=== PATIENT | female | born 1960 | race African-American/Black ===

== ENCOUNTER 2020-04-13 07:19 | Outpatient (REF) | payer OTHER, SELFPAY ==
--- NOTE | 2020-04-13 07:24 | MM_ITS ---
EXAMINATION: MM SCREENING DIGITAL BREAST TOMOSYNTHESIS, BILATERAL CLINICAL INFORMATION: Screening. Asymptomatic. The lifetime risk of breast cancer based on the Tyrer-Cuzick Model is 6%. COMPARISON: Mammography: 04/09/2019, 04/03/2018, 03/08/2017, 02/23/2016 TECHNIQUE: Digital breast tomosynthesis is performed in both the craniocaudal and mediolateral oblique views along with computer-aided detection (CAD). Synthesized 2D images are generated from the tomosynthesis. Additional right MLO view is provided. FINDINGS: There are scattered areas of fibroglandular density (ACR BI-RADS breast composition Category b). Parenchymal pattern is similar to prior studies. Again, there is intramammary node mid upper outer right breast and stable chronic nodule asymmetry anterior 9:00 right breast approximately 1.1 cm in size. Sternalis muscle partly visualized posterior medially right CC view similar to prior exams 2018 and 2015. There is no developing density or interval mass or architectural abnormality. No abnormal calcifications. No significant changes. MM/MM tomosynthesis screening BI IMPRESSION: No significant changes from prior studies. ASSESSMENT: BI-RADS 2: Benign RECOMMENDATION: Routine annual mammography screening. This patient's information was entered into a reminder system with a target due date for their next mammogram.
== END 2020-04-13 07:20 | disposition home or self-care (01) ==
LOC: HO.MAMMO 07:19
PROVIDERS: PCP Internal Medicine; Visit Provider Internal Medicine
DX: Z12.31 Encounter for screening mammogram for malignant neoplasm of breast (principal)
CPT/HCPCS: 77063; 77067

== ENCOUNTER 2020-08-07 08:17 | Outpatient (REF) | payer OTHER, SELFPAY ==
[2020-08-07 10:10] LABS: Alanine Aminotransferase 19 U/L (0-31); Albumin Level 4.2 g/dL (3.5-5.0); Alkaline Phosphatase 79 U/L (39-117); Anion Gap 14 (12-20); Aspartate Amino Transferase 19 U/L (5-31); Bilirubin Total 0.6 mg/dL (0.0-1.0); Blood Urea Nitrogen 8 mg/dL (9-16); Calcium 9.4 mg/dL (8.4-10.2); Carbon Dioxide 26 mmol/L (22-29); Chloride 107 mmol/L (96-108); Cholesterol 278 mg/dL; Estimated Glomerular Filt Rate > 60; Glucose Random 97 mg/dL (60-115); HDL Cholesterol 71 mg/dL; LDL Cholesterol Calculated 180 mg/dl; Potassium 4.6 mmol/L (3.3-5.1); Sodium 142 mmol/L (135-145); Total Protein 6.8 g/dL (6.5-8.0); Triglycerides 138 mg/dL
== END 2020-08-07 08:18 | disposition home or self-care (01) ==
LOC: HO.LAB 08:17
PROVIDERS: PCP Internal Medicine; Visit Provider Internal Medicine
DX: E78.00 Pure hypercholesterolemia, unspecified (principal)
CPT/HCPCS: 36415; 80053; 80061

== ENCOUNTER → 2020-09-27 08:11 | Outpatient (BNVA) | payer OTHER, SELFPAY | PROVIDERS: Referring Provider Internal Medicine; Visit Provider Physician Assistant ==

== ENCOUNTER 2020-11-05 08:47 | Day surgery (SDC) | payer OTHER, SELFPAY ==
--- NOTE | 2020-11-04 10:34 | HO.ANESPROP2 ---
Documented by User: Soila Wang 11/04/20 10:40 HPI - Anesthesia Eval Consult details Narrative: 60yo for Colonoscopy PMFSH Active Problems Active Problems: All Active Problems (Updated 09/27/20 @ 08:40 by Jo Galaviz PA-C) History of colon polyps (Acute) Tubular adenoma of colon (Acute) Overweight (BMI 25.0-29.9) (Acute) Vitamin D deficiency (Acute) Anxiety and depression (Acute) Hypercholesterolemia (Acute) Past Medical History Medical History (Updated 09/27/20 @ 08:40 by Jo Galaviz PA-C) Alcohol abuse Anxiety and depression Cervical dysplasia History of uterine fibroid Hypercholesterolemia Overweight (BMI 25.0-29.9) Tubular adenoma of colon Vitamin D deficiency Family History Family History Father Hypertension Mother Hypertension Stroke CVD (cardiovascular disease) Sister Stroke Brother Substance abuse Bipolar 1 disorder Surgical History Surgical History History of tubal ligation Social History Social History Household Members: Spouse Alcohol intake: current Alcohol intake frequency: a few times a month Alcohol type: beer Patient Tobacco Use Status: Current everyday Tobacco user Cigarettes Per Day: 3 Use of substances other than those prescribed or required for medical reasons: No Are you DNR?: No Advance Directives: No Advance Directives Information Provided: Yes 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 Allergies Allergy/AdvReac Type Severity Reaction Status Date / Time pravastatin Allergy Unknown Unknown Verified 02/20/20 09:21 Home Medications Medication Instructions Recorded Confirmed Last Taken Type cholecalciferol (vitamin D3) 25 25 mcg PO DAILY 02/20/20 11/01/20 Unknown History mcg (1,000 unit) capsule Exam Exam Date and Time: November 04, 2020 1034 Pertinent Lab Results Pertinent Lab Results: Laboratory Tests 01/09/20 08/07/20 07:45 08:42 WBC 10.2 Hgb 14.4 Hct 43.6 Plt Count 242 Sodium 142 Potassium 4.6 Chloride 107 Carbon Dioxide 26 BUN 8 L Creatinine 0.67 Assessment and Plan Assessment Anesthesia Assessment: Chart Reviewed Documented by User: Rosmery Rutherford 11/05/20 09:12 [facility] Past Medical History Medical History (Updated 09/27/20 @ 08:40 by Jo Galaviz PA-C) Alcohol abuse Anxiety and depression Cervical dysplasia History of uterine fibroid Hypercholesterolemia Overweight (BMI 25.0-29.9) Tubular adenoma of colon Vitamin D deficiency Family History Family History Father Hypertension Mother Hypertension Stroke CVD (cardiovascular disease) Sister Stroke Brother Substance abuse Bipolar 1 disorder Surgical History Surgical History History of tubal ligation Social History Social History Household Members: Spouse Alcohol intake: current Alcohol intake frequency: a few times a month Alcohol type: beer Patient Tobacco Use Status: Current everyday Tobacco user Cigarettes Per Day: 3 Use of substances other than those prescribed or required for medical reasons: No Are you DNR?: No Advance Directives: No Advance Directives Information Provided: Yes 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 Allergies Allergy/AdvReac Type Severity Reaction Status Date / Time pravastatin Allergy Unknown Unknown Verified 02/20/20 09:21 Home Medications Medication Instructions Recorded Confirmed Last Taken Type cholecalciferol (vitamin D3) 25 25 mcg PO DAILY 02/20/20 11/01/20 Unknown History mcg (1,000 unit) capsule Exam Airway Mallampati Class: II TM Dist: >3cm Neck ROM: Full Loose/Missing/Broken Teeth: No Heart: RRR Lungs: CTA Assessment and Plan Assessment Anesthesia Assessment: Anesthesia Plan Discussed and Chart Reviewed Final Anesthetic Review NPO: Yes ASA Class: II Final Preanesthetic Review: Meds/Allgs Chart Reviewed, Consent Obtained/Reviewed and Anes Risks/Benef Reviewed Patient Risk: Low Procedure Risk: Low Anesthetic Plan Anesthetic Plan: MAC:
--- NOTE | 2020-11-05 09:02 | MHC.SHP ---
Documented by User: Cassandra Das MD 11/05/20 09:25 Pre-Procedural Eval Section A Date of Service: 11/05/20 The patient is an INPATIENT: No The History & Physical has been completed within 30 days and I have reviewed it.: No Section B Chief Complaint: Hx of Colon Polyps Details of Present Illness: Colon cancer screening, history of colon polyps Relevant Family History (Specify if Yes): No Relevant Social History: Tobacco Use Present Medications: see Short Stay Collaborative assessment Medical History: Significant History (Alcohol abuse Anxiety and depression Cervical dysplasia History of uterine fibroid Hypercholesterolemia Overweight (BMI 25.0-29.9) Tubular adenoma of colon Vitamin D deficiency) History of Previous Operations: Relevant previous surgery/procedure and date(s) (History of tubal ligation) Allergies: Allergies Allergy/AdvReac Type Severity Reaction Status Date / Time pravastatin Allergy Unknown Unknown Verified 02/20/20 09:21 Review of Systems Sugical H&P ROS: Negative: Constitution, Cardiovascular, Respiratory and Gastrointestinal Exam Surgical H&P Exam: Normal: Heart, Normal: Lungs, Normal: Extremities and Normal: Abdomen Plan Diagnosis/Plan: Unchanged I have reviewed the history and physical and performed a pertinent physical examination on my patient. No changes have occurred unless specified. Documented by User: Rosmery Rutherford 11/05/20 09:05 Pre-Procedural Eval Section A Date of Service: 11/05/20 Section B Chief Complaint: Hx of Colon Polyps
[2020-11-05 09:05] VITALS: BP 144/69; PULSE 63; RESP 16; TEMP 36.4; O2SAT 99; BMI 28.1
[2020-11-05] MEDS: Lactated Ringers 1,000 ML 100 ML IVCONT (09:15)
[2020-11-05 10:11] VITALS: BP 107/67; PULSE 62; RESP 18; TEMP 36.2; O2SAT 100
[2020-11-05 10:26] VITALS: BP 137/67; PULSE 60; RESP 16; O2SAT 98
--- NOTE | 2020-11-05 17:30 | W.PM.OPN ---
Operative Note Operative Note Date of Service: 11/05/20 Narrative: Pre-op diagnosis: colon cancer screening, hx of colon polyps Post-op diagnosis: other (Colon polyp, diverticulosis, hemorrhoids) Procedure: COLONOSCOPY TILL CECUM WITH BIOPSES, SNARE POLYPECTOMY, HEMOCLIP PLACEMENT AND SUBMUCOSAL INJECTION Consent: Indications for the procedure and potential complications of bleeding, perforation, reaction to medications and missed diagnosis were discussed with the patient and informed consent was obtained. Instrument: Olympus PCF H 190 L variable stiffness pediatric colonoscope Monitoring: Vital signs and clinical assessment, intermittent blood pressure monitoring, continuous EKG monitoring, Pulse oximetry and Carbon Dioxide monitoring were done throughout the procedure. Colon withdrawl time was 24 minutes. Procedure: The patient was placed in the left lateral decubitis position and pre-procedure medications were administered. After a digital rectal examination of the ano-rectum, the video colonoscope was inserted into the rectum and advanced through the colon to the cecum. The colonoscope was slowly withdrawn in a retrograde panoramic fashion and the colon mucosa was carefully examined including a retroflexed view of the rectum. Findings and interventions are described below. Procedure Difficulty: Colon was long and tortuous and there was some loop formation - no maneuvers were required Findings: Terminal Ileum: Not evaluated Cecum: A 2-3 mm diminutive appearing polyp removed with a cold bx. Ascending Colon: A 1.5 to 2 cms sessile polyp in a diverticulum in proximal AC close to the lower lip of ICV (recurrent polyp since polyp was removed from the same location during previous two colonoscopes) - polyp was removed with a hot snare and polypectomy site was closed with a hemoclip and marked by agus ink. Moderate diverticulosis Transverse Colon: Moderate diverticulosis Descending Colon: Moderate diverticulosis Sigmoid Colon: Moderate diverticulosis Rectum: Normal Ano-rectum: Moderate internal hemorrhoids Colon preparation: Excellent Impression and Post Procedure Diagnosis: Colonoscopy Findings: One small and one large polyps removed Moderate diverticulosis seen in the entire colon Moderate hemorrhoids on retroflexed exam. Plan: Await pathology results Patient has an appointment on 12/20/20 in the GI Clinic with YADY Diehl . Repeat Colonoscopy interval based on path results - in 1 years to check polypectomy site in the AC. Above findings were reviewed with the patient and colon polyps and diverticulosis handouts were given in the discharge area Surgeon: Cassandra Das MD Anesthesia: MAC (Dr Rutherford) Was an Chemical Etching Processor used for this Procedure?: No Chemical Etching Processor: Alec Lee Estimated blood loss (mL): 0 Pathology: other (A- CECAL POLYP B- ASCENDING COLON POLYP) Condition: stable Disposition: PACU
== END 2020-11-05 10:50 | disposition home or self-care (01) ==
PROVIDERS: PCP Internal Medicine; Visit Provider Internal Medicine Gastroenterology
PROC: 0DJD8ZZ Inspection of Lower Intestinal Tract, Via Natural or Artificial Opening Endoscopic (ICD-10-PCS; CPT 45378; principal; 2020-11-05 10:00)
DX: Z12.11 Encounter for screening for malignant neoplasm of colon (principal); Z86.010 Personal history of colon polyps; D12.2 Benign neoplasm of ascending colon; K63.5 Polyp of colon; K57.30 Diverticulosis of large intestine without perforation or abscess without bleeding; K64.8 Other hemorrhoids; E55.9 Vitamin D deficiency, unspecified; E78.00 Pure hypercholesterolemia, unspecified; F10.10 Alcohol abuse, uncomplicated; F32.9 Major depressive disorder, single episode, unspecified; F17.210 Nicotine dependence, cigarettes, uncomplicated; Z79.899 Other long term (current) drug therapy
CPT/HCPCS: 45385; 45380; 45381; 88305

== ENCOUNTER 2020-11-29 15:05 | Outpatient (REF) | payer OTHER, SELFPAY | END 2020-11-29 15:06 | disposition home or self-care (01) | LOC: HO.LAB 15:05 | PROVIDERS: PCP Internal Medicine; Visit Provider Internal Medicine | DX: Z20.822 Contact with and (suspected) exposure to COVID-19 (principal) | CPT/HCPCS: C9803; U0003; U0005 ==

== ENCOUNTER 2020-11-29 15:18 | Emergency (ER) | payer OTHER, SELFPAY ==
--- NOTE | ~2020-11-29 | XR_ITS ---
EXAMINATION: XR CHEST CLINICAL INFORMATION: Chest pain. COMPARISON: None TECHNIQUE: Frontal view of the chest was obtained. FINDINGS: No significant abnormality is noted involving the heart, lungs, mediastinum, bony thorax or soft tissues. XR/XR chest 1V IMPRESSION: Unremarkable chest examination.
[2020-11-29 15:40] VITALS: BP 173/77; PULSE 69; RESP 18; TEMP 36.9; O2SAT 99; BMI 27.7
--- NOTE | 2020-11-29 15:40 | ECG_ITS ---
Test Reason : HYPERTENSION CP Blood Pressure : / mmHG Vent. Rate : 061 BPM Atrial Rate : 061 BPM P-R Int : 162 ms QRS Dur : 078 ms QT Int : 418 ms P-R-T Axes : 011 013 036 degrees QTc Int : 420 ms Normal sinus rhythm Normal ECG No previous ECGs available Referred By: Kavon Macias Electronically Signed By:FIONA WILLIS MD
--- NOTE | 2020-11-29 15:42 | ED.GENADULT ---
HPI - General Adult General Chief complaint: General Medical Stated complaint: HBP Time Seen by Provider: 11/29/20 15:40 Related Data Home Medications Medication Instructions Recorded Confirmed cholecalciferol (vitamin D3) 25 25 mcg PO DAILY 02/20/20 11/01/20 mcg (1,000 unit) capsule Previous Rx's Medication Instructions Recorded simvastatin 20 mg tablet 20 mg PO QPM #90 tab 08/03/20 lisinopril 10 mg tablet 10 mg PO DAILY #30 tab 11/29/20 Allergies Allergy/AdvReac Type Severity Reaction Status Date / Time No Known Allergies Allergy Verified 11/29/20 15:40 [facility] Past Medical History Medical History (Updated 11/30/20 @ 00:01 by Khurram Alcala) Alcohol abuse Anxiety and depression Cervical dysplasia History of uterine fibroid Hypercholesterolemia Overweight (BMI 25.0-29.9) Tubular adenoma of colon Vitamin D deficiency Surgical History History of tubal ligation Family History Family History Father Hypertension Mother Hypertension Stroke CVD (cardiovascular disease) Sister Stroke Brother Substance abuse Bipolar 1 disorder Social History Social History Household Members: Spouse Alcohol intake: never Patient Tobacco Use Status: Current everyday Tobacco user Cigarettes Per Day: 3 Use of substances other than those prescribed or required for medical reasons: No Advance Directives: No Advance Directives Information Provided: Yes Patient : No 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 negative for any neurodefcits. EKG and labs ordered. This is a rapid medical screening. Medical Decision Making Lab Data Result diagrams: 11/29/20 16:57 11/29/20 16:57 Labs: Lab Results 11/29/20 11/29/20 11/29/20 Range/Units 16:57 16:57 16:57 WBC 9.7 (4.8-10.8) X10*3/uL RBC 4.51 (4.20-5.50) X10*6/uL Hgb 14.9 (12.0-16.0) g/dl Hct 43.2 (37-47) % MCV 95.8 (80-98) fL MCH 33.0 (27.0-33.0) pg MCHC 34.5 (31.0-35.0) g/dl RDW 12.3 (11.0-16.0) % Plt Count 260 (160-400) X10*3/uL MPV 10.2 (9.4-12.3) fL Immature Gran % (Auto) 0.3 (0.0-0.4) % Neut % (Auto) 55.4 (45-73) % Lymph % (Auto) 33.8 (20-40) % [place] % (Auto) 7.8 (2-11) % Eos % (Auto) 2.3 (0-4) % Baso % (Auto) 0.4 (0-2) % Lymph # (Auto) 3.3 (1.2-4.9) X10*3/uL [place] # (Auto) 0.8 (0.1-1.2) X10*3/uL Eos # (Auto) 0.2 (0.0-0.4) X10*3/uL Baso # (Auto) 0.0 (0.0-0.2) X10*3/uL Abs Immat Gran (auto) 0.03 (0.00-0.03) X10*3/uL Absolute Neuts (auto) 5.4 (2.0-8.3) X10*3/uL Absolute Nucleated RBC 0.000 (0.0-0.012) X10*3/uL Nucleated RBC % (auto) 0.0 (0.0-0.2) /100WBC PT 11.6 (9.9-13.0) SEC INR 1.0 (0.9-1.1) APTT 37.9 (24.1-38.0) SEC Sodium 143 (135-145) mmol/L Potassium 4.3 (3.3-5.1) mmol/L Chloride 111 H (96-108) mmol/L Carbon Dioxide 23 (22-29) mmol/L Anion Gap 13 (12-20) BUN 12 (9-16) mg/dL Creatinine 0.72 (0.5-1.4) mg/dL Estim Creat Clear Calc 70.5 Estimated GFR > 60 Random Glucose 98 (60-115) mg/dL Calcium 9.6 (8.4-10.2) mg/dL Total Bilirubin 0.4 (0.0-1.0) mg/dL AST 20 (5-31) U/L ALT 17 (0-31) U/L Alkaline Phosphatase 88 (39-117) U/L Troponin I High Sens (<3.5-17.0) ng/L B-Natriuretic Peptide (<100) pg/mL Total Protein 7.3 (6.5-8.0) g/dL Albumin 4.4 (3.5-5.0) g/dL 11/29/20 Range/Units 16:57 WBC (4.8-10.8) X10*3/uL RBC (4.20-5.50) X10*6/uL Hgb (12.0-16.0) g/dl Hct (37-47) % MCV (80-98) fL MCH (27.0-33.0) pg MCHC (31.0-35.0) g/dl RDW (11.0-16.0) % Plt Count (160-400) X10*3/uL MPV (9.4-12.3) fL Immature Gran % (Auto) (0.0-0.4) % Neut % (Auto) (45-73) % Lymph % (Auto) (20-40) % [place] % (Auto) (2-11) % Eos % (Auto) (0-4) % Baso % (Auto) (0-2) % Lymph # (Auto) (1.2-4.9) X10*3/uL [place] # (Auto) (0.1-1.2) X10*3/uL Eos # (Auto) (0.0-0.4) X10*3/uL Baso # (Auto) (0.0-0.2) X10*3/uL Abs Immat Gran (auto) (0.00-0.03) X10*3/uL Absolute Neuts (auto) (2.0-8.3) X10*3/uL Absolute Nucleated RBC (0.0-0.012) X10*3/uL Nucleated RBC % (auto) (0.0-0.2) /100WBC PT (9.9-13.0) SEC INR (0.9-1.1) APTT (24.1-38.0) SEC Sodium (135-145) mmol/L Potassium (3.3-5.1) mmol/L Chloride (96-108) mmol/L Carbon Dioxide (22-29) mmol/L Anion Gap (12-20) BUN (9-16) mg/dL Creatinine (0.5-1.4) mg/dL Estim Creat Clear Calc Estimated GFR Random Glucose (60-115) mg/dL Calcium (8.4-10.2) mg/dL Total Bilirubin (0.0-1.0) mg/dL AST (5-31) U/L ALT (0-31) U/L Alkaline Phosphatase (39-117) U/L Troponin I High Sens < 3.5 (<3.5-17.0) ng/L B-Natriuretic Peptide 35 (<100) pg/mL Total Protein (6.5-8.0) g/dL Albumin (3.5-5.0) g/dL Discharge Plan Discharge Clinical Impression: Hypertension Patient Disposition: Home, Self-Care Instructions: Hypertension (ED) Additional Instructions: Decrease salt intake Start taking blood pressure medication for borderline hypertension and follow-up with PCP blood pressure should be less than 140/90 Check blood pressure daily Prescriptions: New lisinopril 10 mg tablet 10 mg PO DAILY Qty: 30 RF: 0 No Action simvastatin 20 mg tablet 20 mg PO QPM Qty: 90 RF: 1 cholecalciferol (vitamin D3) 25 mcg (1,000 unit) capsule 25 mcg PO DAILY RF: 0 Interventions: ED Discharge Assessment Last Done: 11/29/20 22:43 Discharge Date/Time: 11/29/20 22:45
[2020-11-29 16:00] VITALS: BP 195/85; PULSE 76; RESP 18; O2SAT 99
[2020-11-29 17:04] LABS: MANUAL DIFF FLAG NO
[2020-11-29 17:07] LABS: Basophils Percent Auto 0.4 % (0-2); Eosinophils Absolute Auto 0.2 X10*3/uL (0.0-0.4); Eosinophils Percent Auto 2.3 % (0-4); Hematocrit 43.2 % (37-47); Hemoglobin 14.9 g/dl (12.0-16.0); Imm Gran Abs Auto 0.03 X10*3/uL (0.00-0.03); Imm Gran Pct Auto 0.3 % (0.0-0.4); Lymphocytes Absolute Auto 3.3 X10*3/uL (1.2-4.9); Lymphocytes Percent Auto 33.8 % (20-40); Mean Corpuscular HGB Conc 34.5 g/dl (31.0-35.0); Mean Corpuscular Volume 95.8 fL (80-98); Mean Platelet Volume 10.2 fL (9.4-12.3); Monocytes Absolute Auto 0.8 X10*3/uL (0.1-1.2); Monocytes Percent Auto 7.8 % (2-11); Neutrophils Absolute Auto 5.4 X10*3/uL (2.0-8.3); Neutrophils Percent Auto 55.4 % (45-73); Platelet Count 260 X10*3/uL (160-400); Red Blood Count 4.51 X10*6/uL (4.20-5.50); Red Cell Distribution Width 12.3 % (11.0-16.0); White Blood Count 9.7 X10*3/uL (4.8-10.8)
[2020-11-29 17:17] LABS: Prothrombin Time 11.6 SEC (9.9-13.0)
[2020-11-29 17:20] LABS: Partial Thromboplastin Time 37.9 SEC (24.1-38.0)
[2020-11-29 17:44] LABS: Alanine Aminotransferase 17 U/L (0-31); Albumin Level 4.4 g/dL (3.5-5.0); Alkaline Phosphatase 88 U/L (39-117); Anion Gap 13 (12-20); Aspartate Amino Transferase 20 U/L (5-31); Bilirubin Total 0.4 mg/dL (0.0-1.0); Blood Urea Nitrogen 12 mg/dL (9-16); Calcium 9.6 mg/dL (8.4-10.2); Carbon Dioxide 23 mmol/L (22-29); Chloride 111 mmol/L (96-108); Creatinine Clr Calc Pharmacy 70.5; Estimated Glomerular Filt Rate > 60; Glucose Random 98 mg/dL (60-115); Potassium 4.3 mmol/L (3.3-5.1); Sodium 143 mmol/L (135-145); Total Protein 7.3 g/dL (6.5-8.0)
[2020-11-29 17:50] LABS: B Type Natriuretic Peptide 35 pg/mL (<100); Troponin-I High Sensitivity < 3.5 ng/L (<3.5-17.0)
--- NOTE | 2020-11-29 21:57 | ED.GENADULT ---
HPI - General Adult General Chief complaint: General Medical Stated complaint: HBP Time Seen by Provider: 11/29/20 15:40 Source: patient Mode of arrival: ambulatory Limitations: no limitations History of Present Illness HPI narrative: Patient with history of anxiety and depression complaining of chest pain, dizziness, high blood pressure and headache for last 4 days blood pressure on arrival was 195/85 pulse rate 69 recheck blood pressure now is 177/89 patient was seen at urgent care 4 days ago. Patient does have very strong family history of hypertension most of the family members have high blood pressure patient saw her PCP 6 months ago her blood pressure was normal at that time patient also complaining of chest pain which is chronic going on for last few days localized in the mid sternum without radiation no diaphoresis no shortness of breath also feeling dizzy nonspecific Related Data Home Medications Medication Instructions Recorded Confirmed cholecalciferol (vitamin D3) 25 25 mcg PO DAILY 02/20/20 11/01/20 mcg (1,000 unit) capsule Previous Rx's Medication Instructions Recorded simvastatin 20 mg tablet 20 mg PO QPM #90 tab 08/03/20 lisinopril 10 mg tablet 10 mg PO DAILY #30 tab 11/29/20 Allergies Allergy/AdvReac Type Severity Reaction Status Date / Time No Known Allergies Allergy Verified 11/29/20 15:40 Review of Systems Review of Systems: Constitutional : No Weight loss, No Fever, No Chills ENT/Mouth : No sore throat, No Rhinorrhea Eyes: No Eye Pain, No Swelling Cardiovascular : +Chest Pain, no palpitations Respiratory : No Cough, No Sputum, no shortness of breath Gastrointestinal : no Nausea, No Vomiting, No Diarrhea, No abdominal Pain, no black stools Genitourinary : No Dysuria, No Urinary Frequency Musculoskeletal : No joint pain, No Myalgias, No Joint Swelling Skin : No Skin Lesions, No rash Neuro : No Weakness, No Numbness, + Dizziness, No Headache Psych : + Anxiety/Panic, No Depression Heme/Lymph: No Bruising, No Lymphadenopathy Endocrine : No Polyuria, No Polydipsia All other systems reviewed and are negative [facility] Past Medical History Medical History (Updated 11/29/20 @ 22:15 by Garth Westbrook MD) Alcohol abuse Anxiety and depression Cervical dysplasia History of uterine fibroid Hypercholesterolemia Overweight (BMI 25.0-29.9) Tubular adenoma of colon Vitamin D deficiency Surgical History History of tubal ligation Family History Family History Father Hypertension Mother Hypertension Stroke CVD (cardiovascular disease) Sister Stroke Brother Substance abuse Bipolar 1 disorder Social History Social History Household Members: Spouse Alcohol intake: current Alcohol intake frequency: a few times a month Alcohol type: beer Patient Tobacco Use Status: Current everyday Tobacco user Cigarettes Per Day: 3 Advance Directives: No Advance Directives Information Provided: Yes Patient : No 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 Oriented X3. No acute distress. Eyes: PERRLA, No Nystagmus ENT: Pharynx normal. Oral Mucosa moist Neck: Normal inspection. Neck supple. CVS: Normal heart rate and rhythm. Pulses normal. Respiratory: No respiratory distress. Equal air entry bilateral, no wheezing/rales/rhonchi Abdomen: Soft and nontender. Bowel sounds are present, no mass palpable, no CVA tenderness Skin: Skin warm and dry. Normal skin color. Normal skin turgor. Extremities: No lower extremity edema. No calf tenderness Neuro: Oriented X 3. No motor deficit. No sensory deficit.No cerebellar signs , cranial nerves II-XII intact Medical Decision Making MDM Narrative Medical decision making narrative: Patient with borderline hypertension high normal blood pressure with strong family history of hypertension. Will start patient on lisinopril advised to have salt restriction follow with PCP Lab Data Lab results reviewed: Yes I reviewed the patient's lab results. Result diagrams: 11/29/20 16:57 11/29/20 16:57 Labs: Lab Results 11/29/20 11/29/20 11/29/20 Range/Units 16:57 16:57 16:57 WBC 9.7 (4.8-10.8) X10*3/uL RBC 4.51 (4.20-5.50) X10*6/uL Hgb 14.9 (12.0-16.0) g/dl Hct 43.2 (37-47) % MCV 95.8 (80-98) fL MCH 33.0 (27.0-33.0) pg MCHC 34.5 (31.0-35.0) g/dl RDW 12.3 (11.0-16.0) % Plt Count 260 (160-400) X10*3/uL MPV 10.2 (9.4-12.3) fL Immature Gran % (Auto) 0.3 (0.0-0.4) % Neut % (Auto) 55.4 (45-73) % Lymph % (Auto) 33.8 (20-40) % [place] % (Auto) 7.8 (2-11) % Eos % (Auto) 2.3 (0-4) % Baso % (Auto) 0.4 (0-2) % Lymph # (Auto) 3.3 (1.2-4.9) X10*3/uL [place] # (Auto) 0.8 (0.1-1.2) X10*3/uL Eos # (Auto) 0.2 (0.0-0.4) X10*3/uL Baso # (Auto) 0.0 (0.0-0.2) X10*3/uL Abs Immat Gran (auto) 0.03 (0.00-0.03) X10*3/uL Absolute Neuts (auto) 5.4 (2.0-8.3) X10*3/uL Absolute Nucleated RBC 0.000 (0.0-0.012) X10*3/uL Nucleated RBC % (auto) 0.0 (0.0-0.2) /100WBC PT 11.6 (9.9-13.0) SEC INR 1.0 (0.9-1.1) APTT 37.9 (24.1-38.0) SEC Sodium 143 (135-145) mmol/L Potassium 4.3 (3.3-5.1) mmol/L Chloride 111 H (96-108) mmol/L Carbon Dioxide 23 (22-29) mmol/L Anion Gap 13 (12-20) BUN 12 (9-16) mg/dL Creatinine 0.72 (0.5-1.4) mg/dL Estim Creat Clear Calc 70.5 Estimated GFR > 60 Random Glucose 98 (60-115) mg/dL Calcium 9.6 (8.4-10.2) mg/dL Total Bilirubin 0.4 (0.0-1.0) mg/dL AST 20 (5-31) U/L ALT 17 (0-31) U/L Alkaline Phosphatase 88 (39-117) U/L Troponin I High Sens (<3.5-17.0) ng/L B-Natriuretic Peptide (<100) pg/mL Total Protein 7.3 (6.5-8.0) g/dL Albumin 4.4 (3.5-5.0) g/dL 11/29/20 Range/Units 16:57 WBC (4.8-10.8) X10*3/uL RBC (4.20-5.50) X10*6/uL Hgb (12.0-16.0) g/dl Hct (37-47) % MCV (80-98) fL MCH (27.0-33.0) pg MCHC (31.0-35.0) g/dl RDW (11.0-16.0) % Plt Count (160-400) X10*3/uL MPV (9.4-12.3) fL Immature Gran % (Auto) (0.0-0.4) % Neut % (Auto) (45-73) % Lymph % (Auto) (20-40) % [place] % (Auto) (2-11) % Eos % (Auto) (0-4) % Baso % (Auto) (0-2) % Lymph # (Auto) (1.2-4.9) X10*3/uL [place] # (Auto) (0.1-1.2) X10*3/uL Eos # (Auto) (0.0-0.4) X10*3/uL Baso # (Auto) (0.0-0.2) X10*3/uL Abs Immat Gran (auto) (0.00-0.03) X10*3/uL Absolute Neuts (auto) (2.0-8.3) X10*3/uL Absolute Nucleated RBC (0.0-0.012) X10*3/uL Nucleated RBC % (auto) (0.0-0.2) /100WBC PT (9.9-13.0) SEC INR (0.9-1.1) APTT (24.1-38.0) SEC Sodium (135-145) mmol/L Potassium (3.3-5.1) mmol/L Chloride (96-108) mmol/L Carbon Dioxide (22-29) mmol/L Anion Gap (12-20) BUN (9-16) mg/dL Creatinine (0.5-1.4) mg/dL Estim Creat Clear Calc Estimated GFR Random Glucose (60-115) mg/dL Calcium (8.4-10.2) mg/dL Total Bilirubin (0.0-1.0) mg/dL AST (5-31) U/L ALT (0-31) U/L Alkaline Phosphatase (39-117) U/L Troponin I High Sens < 3.5 (<3.5-17.0) ng/L B-Natriuretic Peptide 35 (<100) pg/mL Total Protein (6.5-8.0) g/dL Albumin (3.5-5.0) g/dL ECG Data Attestation: I personally reviewed and interpreted this ECG as follows: Interpretation: Normal sinus rhythm heart rate 61 beats per minute normal interval no acute ST T wave changes impression normal EKG Discharge Plan Discharge Clinical Impression: Hypertension Qualifiers: Hypertension type: primary hypertension Qualified Code(s): I10 - Essential (primary) hypertension Patient Disposition: Home, Self-Care Instructions: Hypertension (ED) Additional Instructions: Decrease salt intake Start taking blood pressure medication for borderline hypertension and follow-up with PCP blood pressure should be less than 140/90 Check blood pressure daily Prescriptions: New lisinopril 10 mg tablet 10 mg PO DAILY Qty: 30 RF: 0 No Action simvastatin 20 mg tablet 20 mg PO QPM Qty: 90 RF: 1 cholecalciferol (vitamin D3) 25 mcg (1,000 unit) capsule 25 mcg PO DAILY RF: 0
[2020-11-29 22:00] VITALS: BP 177/89; PULSE 64; RESP 15; O2SAT 99
[2020-11-29 22:21] VITALS: BP 177/89; PULSE 64
[2020-11-29] MEDS: lisinopriL 10 MG TABLET PO (22:21)
== END 2020-11-29 22:45 | disposition home or self-care (01) ==
PROVIDERS: Physician Assistant; Emergency Provider Internal Medicine; PCP Internal Medicine
DX: I10 Essential (primary) hypertension (principal); R42 Dizziness and giddiness; R07.9 Chest pain, unspecified; R51.9 Headache, unspecified; F17.210 Nicotine dependence, cigarettes, uncomplicated; Z71.6 Tobacco abuse counseling; Z79.899 Other long term (current) drug therapy
CPT/HCPCS: 36415; 71045; 80053; 83880; 84484; 85025; 85610; 85730; 93005; 99283; 99284

== ENCOUNTER → 2020-12-20 09:19 | Outpatient (BNVA) | payer OTHER, SELFPAY | PROVIDERS: PCP Internal Medicine; Visit Provider Physician Assistant ==

== ENCOUNTER → 2021-01-03 07:48 | Outpatient (REF) | payer OTHER, SELFPAY ==
--- NOTE | 2021-01-03 07:52 | CA_ITS ---
Acquisition Time: 2021-01-03 07:54:02 Total Exercise Time: 00:05:50 Test Indications: Screening for CAD Medications: LISINOPRIL/HCTZ Protocol: TINA Max HR: 112 BPM 69% of Pred: 161 BPM Max BP: 138/080 mmHG Max Work Load: 7.0 METS Exercise stress test with exercise 5 min 50 sec of Tina protocol, with report of 8/10 mid chest discomfort with radiation to left arm, with isolated PAC, with normotensive response to exercise, with EKG that is nondiagnostic for ischemia due to suboptimal heart rate of 69% MPHR, however EKG shows scooping ST segments inferiorly and V4-V6 at baseline Then downsloping ST segments leads I, II, V3-V6 at peak exercise and in recovery with gradual return to bases baseline EKG. In recovery her chest discomfort improved and resolved by 6 min. Test reviewed with Dr. Lloyd. Message sent to Dr Clayton with report and recommendation for pharm nuclear stress test/ card consult. Referred By: Gian Clayton Overread By: DEV ALVARADO
== END ==
LOC: HO.CARD 07:48
PROVIDERS: PCP Internal Medicine; Visit Provider Internal Medicine
DX: R07.9 Chest pain, unspecified (principal)
CPT/HCPCS: 93017

== ENCOUNTER 2021-01-15 07:57 | Outpatient (REF) | payer OTHER, SELFPAY ==
[2021-01-15 08:25] LABS: MANUAL DIFF FLAG NO
[2021-01-15 08:32] LABS: Basophils Percent Auto 0.4 % (0-2); Eosinophils Absolute Auto 0.2 X10*3/uL (0.0-0.4); Eosinophils Percent Auto 2.2 % (0-4); Hematocrit 42.4 % (37-47); Hemoglobin 14.3 g/dl (12.0-16.0); Imm Gran Abs Auto 0.04 X10*3/uL (0.00-0.03); Imm Gran Pct Auto 0.4 % (0.0-0.4); Lymphocytes Absolute Auto 3.1 X10*3/uL (1.2-4.9); Lymphocytes Percent Auto 33.5 % (20-40); Mean Corpuscular HGB Conc 33.7 g/dl (31.0-35.0); Mean Corpuscular Volume 94.9 fL (80-98); Mean Platelet Volume 9.6 fL (9.4-12.3); Monocytes Absolute Auto 0.9 X10*3/uL (0.1-1.2); Monocytes Percent Auto 10.2 % (2-11); Neutrophils Absolute Auto 4.9 X10*3/uL (2.0-8.3); Neutrophils Percent Auto 53.3 % (45-73); Platelet Count 313 X10*3/uL (160-400); Red Blood Count 4.47 X10*6/uL (4.20-5.50); Red Cell Distribution Width 11.5 % (11.0-16.0); White Blood Count 9.2 X10*3/uL (4.8-10.8)
[2021-01-15 09:08] LABS: Alanine Aminotransferase 24 U/L (0-31); Albumin Level 4.4 g/dL (3.5-5.0); Alkaline Phosphatase 81 U/L (39-117); Anion Gap 13 (12-20); Aspartate Amino Transferase 23 U/L (5-31); Bilirubin Total 0.5 mg/dL (0.0-1.0); Blood Urea Nitrogen 12 mg/dL (9-16); Carbon Dioxide 27 mmol/L (22-29); Chloride 106 mmol/L (96-108); Cholesterol 204 mg/dL; Estimated Glomerular Filt Rate > 60; Glucose Random 97 mg/dL (60-115); HDL Cholesterol 72 mg/dL; LDL Cholesterol Calculated 115 mg/dl; Potassium 4.6 mmol/L (3.3-5.1); Sodium 141 mmol/L (135-145); Total Protein 7.2 g/dL (6.5-8.0); Triglycerides 89 mg/dL
[2021-01-15 09:21] LABS: Free T4 (Free Thyroxine) 0.97 ng/dL (0.71-1.85); Vitamin D 25-OH Total 46.7 ng/mL (>30)
== END 2021-01-15 07:58 | disposition home or self-care (01) ==
LOC: HO.LAB 07:57
PROVIDERS: PCP Internal Medicine; Visit Provider Internal Medicine
DX: E55.9 Vitamin D deficiency, unspecified (principal); E78.00 Pure hypercholesterolemia, unspecified
CPT/HCPCS: 36415; 80053; 80061; 82306; 84439; 84443; 85025

== ENCOUNTER 2021-01-31 09:25 | Inpatient (IN) | payer OTHER, SELFPAY ==
[2021-01-31] VITALS (9 sets, daily range): BP systolic 108–160; BP diastolic 59–92; PULSE 50–88; RESP 14–20; TEMP 36–37; O2SAT 98–100; BMI 26.7
--- NOTE | ~2021-01-31 | XR_ITS ---
EXAMINATION: XR CHEST CLINICAL INFORMATION: Chest pain COMPARISON: Previous chest x-ray November 2020 TECHNIQUE: 2 views of the chest were obtained. FINDINGS: No significant abnormality is noted involving the heart, lungs, mediastinum, bony thorax or soft tissues. XR/XR chest 2V IMPRESSION: Unremarkable examination.
--- NOTE | ~2021-01-31 | CT_ITS ---
EXAMINATION: CT HEAD WITHOUT CONTRAST CLINICAL INFORMATION: Headache COMPARISON: 10/02/2017 TECHNIQUE: Contiguous axial imaging was performed from the skull base to vertex without intravenous administration of contrast. This CT examination was performed using dose optimization techniques as appropriate, variously including the following: *Automated exposure control *Adjustment of mA and/or kV according to patient size (this includes techniques or standardized protocols for targeted exams where dose is matched to indication/reason for exam; i.e. extremities or head) *Use of iterative reconstruction technique DLP: 621 mGy-cm FINDINGS: There is no evidence of acute intracranial hemorrhage or territorial infarction. No abnormal mass effect or midline shift is seen. Sebastian to white matter differentiation is well preserved. No extra-axial fluid collections are identified. The ventricles are normal in size. Stable mild bifrontal periventricular white matter low-attenuation change statistically related to chronic microangiopathy. The osseous structures and soft tissues are normal. The mastoid air cells and visualized portions of the paranasal sinuses are well aerated. CT/CT head/brain wo con IMPRESSION: No acute intracranial pathology.
--- NOTE | ~2021-01-31 | CT_ITS ---
EXAMINATION: CT ANGIOGRAM OF THE CHEST WITH AND WITHOUT CONTRAST (CT PULMONARY ANGIOGRAM FOR PE) CLINICAL INFORMATION: Reason for Exam chest pain COMPARISON: Previous chest x-ray from earlier the same day TECHNIQUE: Prior to contrast administration, noncontrast localization images were obtained. Subsequently, multidetector volumetric imaging was performed from the thoracic inlet to below the diaphragms following the administration of 65 mL Omnipaque 350 intravenous contrast. No contrast reaction reported Sagittal, coronal, and MIP oblique sagittal reformatted images were obtained on the CT workstation, uploaded to PACS, and reviewed. This CT examination was performed using dose optimization techniques as appropriate, variously including the following: *Automated exposure control *Adjustment of mA and/or kV according to patient size (this includes techniques or standardized protocols for targeted exams where dose is matched to indication/reason for exam; i.e. extremities or head) *Use of iterative reconstruction technique Total exam dose-length product 304 mGy-cm FINDINGS: QUALITY OF STUDY/CONTRAST BOLUS: Satisfactory. PULMONARY ARTERIES: No central or segmental pulmonary emboli. THORACIC AORTA: No aneurysm or dissection. LUNG: There is a 4 mm calcified right upper lobe nodule near the mediastinum axial image 176 series 8. There is a 4 mm calcified left lower lobe nodule axial image 49 series 7. The lungs are otherwise clear. PLEURA: No pleural effusion or pneumothorax. MEDIASTINUM: Normal heart size. No pericardial effusion. There is a small calcified posterior mediastinal lymph node measuring 5 mm posterior to the esophagus axial image 44 series 6. No enlarged lymph nodes. No evidence of septal bowing or right heart strain. CHEST WALL/AXILLA: No axillary or internal mammary lymphadenopathy. There are collateral vessels in the right chest wall. OSSEOUS STRUCTURES: There is a focal small 5 mm sclerotic lesion in the right at T4 vertebral body. No fracture is seen. UPPER ABDOMEN: Unremarkable. No reflux of contrast into the hepatic veins to suggest elevated right heart pressures. CT/CT angio chest PE protocol IMPRESSION: No evidence of pulmonary embolism. Evidence of old granulomatous disease VTE: negative
--- NOTE | 2021-01-31 10:16 | ECG_ITS ---
Test Reason : GENERAL MEDICINE Blood Pressure : / mmHG Vent. Rate : 058 BPM Atrial Rate : 058 BPM P-R Int : 170 ms QRS Dur : 088 ms QT Int : 428 ms P-R-T Axes : 026 025 043 degrees QTc Int : 420 ms Sinus bradycardia T wave abnormality, consider anterior ischemia Abnormal ECG When compared with ECG of 29-NOV-2020 16:46, T wave inversion now evident in Anterior leads Referred By: Lisa Alvarez Electronically Signed By:NEVAEH MARIE MD
[2021-01-31] MEDS: Cyclobenzaprine HCl 5 MG TABLET PO ×2 (10:26→11:49)
[2021-01-31] MEDS: Ibuprofen 600 MG TABLET PO (10:26)
[2021-01-31 11:17] LABS: MANUAL DIFF FLAG NO
--- NOTE | 2021-01-31 11:29 | ED_ITS ---
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 Of no patient tells me she has these episodes daily which occur at rest. She has been seen several times in the emergency department for same. She saw her primary in December and was started on a blood pressure medication as they thought the symptoms were blood pressure related. She has been taking it daily and checking her blood pressure daily. She has a follow-up appointment in March with him. She is also referred to outpatient architectural design professor and has an appointment with them on February 16 in addition to a nuclear stress test. Patient denies any associated diaphoresis, nausea, vomiting, shortness of breath cough. She tells me that she is feeling improved on arrival to the emergency department Related Data Home Medications Medication Instructions Recorded Confirmed cholecalciferol (vitamin D3) 25 25 mcg PO DAILY 02/20/20 01/31/21 mcg (1,000 unit) capsule simvastatin 20 mg tablet 20 mg PO BEDTIME 01/31/21 01/31/21 Previous Rx's Medication Instructions Recorded alprazolam 0.25 mg tablet 0.25 mg PO BEDTIME PRN 30 Days #10 12/13/20 tab lisinopril 10 1 tab PO BID 30 Days #60 tab 12/29/20 mg-hydrochlorothiazide 12.5 mg tablet Allergies Allergy/AdvReac Type Severity Reaction Status Date / Time No Known Allergies Allergy Verified 01/24/21 10:01 Review of Systems Review of Systems: Yes all other systems are reviewed and are negative Constitutional: Constitutional: Reports no additional constitutional complain ts, Denies body ache(s), Denies chills, Denies fever(s), Reports headache(s) and Denies weakness Eyes: Eyes: Reports no additional eye complaints and Denies change in vision ENT: Reports system reviewed and no additional complaints, except as documented, Denies dizziness, Reports headache(s), Denies nasal congestion, Denies nasal discharge and Denies neck pain Cardiovascular: Cardiovascular: Reports no additional cardiovascular complaints, Reports chest pain, Denies leg edema and Denies dyspnea Respiratory: Respiratory: Reports no additional respiratory complaints, Denies cough and Denies dyspnea Gastrointestinal: Gastrointestinal: Reports no additional gastrointestinal complaints, Denies abdominal pain, Denies diarrhea, Denies nausea and Denies vomiting Genitourinary: Genitourinary: Reports no additional female genitourinary complaints and Denies urinary incontinence Musculoskeletal: Musculoskeletal: Reports no additional musculoskeletal complaints, Denies back pain, Denies arthralgias, Denies joint swelling, Denies neck pain, Reports numbness and Denies tingling Integumentary/Breasts: Skin/Breast: Reports system reviewed and no additional complaints, except as docu and Denies rash Neurologic: Reports system reviewed and no additional complaints, except as documented, Denies Abnormal speech present, Denies dizziness, Reports headache(s), Reports numbness, Denies tingling and Denies weakness PMFSH Past Medical History Attestation statement: The following information was validated with the patient. Source: old records reviewed and nursing notes reviewed Medical History Alcohol abuse Cervical dysplasia History of uterine fibroid Hypercholesterolemia Overweight (BMI 25.0-29.9) Tubular adenoma of colon Vitamin D deficiency Surgical History History of tubal ligation Hx of colonoscopy Family History Family History Father Hypertension Mother Hypertension Stroke CVD (cardiovascular disease) Sister Stroke Brother Substance abuse Bipolar 1 disorder Mental health disorder Social History Social History Household Members: Spouse Housing: House Alcohol intake: never Patient Tobacco Use Status: Former Tobacco user Quit Date: 2 weeks ago Tobacco use type: Cigarette Cigarettes Per Day: 3 e-Cigarette/Vaping Use: Never Used Second Hand Smoke Exposure: No Advance Directives: No Advance Directives Information Provided: No service: No Current occupational status: employed 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 Exam Vital Signs: Vital Signs: Last Vital Signs Temp 98.6 F 01/31/21 15:19 Pulse 58 01/31/21 15:19 Resp 20 01/31/21 15:19 BP 144/68 H 01/31/21 15:19 Pulse Ox 99 01/31/21 15:19 Body Mass Index 26.7 Const: General: cooperative, healthy appearing, comfortable and no acute distress Orientation/consciousness: patient oriented x3 Limitations: no limitations HENMT: Head: Yes normal to inspection Ears: hearing grossly normal bilaterally General nose exam: Normal external nose present Face and sinus: Yes normal facial exam Mouth: Normal oral and palatal mucosa present Throat: Yes posterior oropharynx normal Eyes: General: appearance normal, both eyes and all related structures Pupils: Equal, round and reactive pupils present Neck: Neck: Yes normal visual inspection Chest: Other: Tenderness to the left anterior shoulder which is worsened with abduction and the left anterior chest wall which is worsened with palpation and movement Chest palpation & inspection: normal inspection of the chest Resp: Effort & Inspection: normal respiratory effort Auscultation: clear to auscultation bilaterally Cardio: Rate: regular rate Rhythm: regular rhythm Peripheral pulses: Peripheral pulses 2+ throughout GI: Inspection: Yes normal to inspection Palpation (GI): Soft to palpation and nontender Auscultation: normal bowel sounds Back/Spine/Pelvis: Thoracic/Lumbar Spine: thoracic and lumbar spine normal to inspection Skin: General skin exam: no rashes or lesions noted Neuro: General: patient oriented x3, no focal motor deficits and normal sensation to monofilament Cranial nerves: Yes Equal, round and reactive pupils present Cognition (Neuro): normal cognition Speech: No Abnormal speech present Gait exam (Neuro): Normal gait present Motor exam (neuro): 5/5 motor strength present throughout Extrem: General: Yes normal to inspection, Yes no pedal edema and Yes no calf tenderness Course Course Course Narrative: 60-year-old female here with atypical chest pain noted this morning 08:00 with recurrent episodes almost daily over the last month. She was started on antihypertensive as is her symptoms were thought to be blood pressure related on December 24. She also has outpatient follow-up with car diology for nuclear stress test the end of this month. Episode this morning which felt more severe in pain in her other episodes although clinically appears more MS. Will check labs, chest x-ray,. EKG 1100-initial EKG shows some ST changes in leads V1 through V4. First troponin is 7. Chest pain is resolved after NSAID, muscle relaxant. Plan for repeat troponin. 1230-Unfortunately the troponin was drawn to soon. Plan for additional troponin. 1400-Troponin now 24.1. Discussed patient with Dr. Lloyd. Likely NSTEMI. Treat with IV heparin and admit. Aspirin ordered. Heparin ordered. CTA to r/o PE pending. Again chest pain resolved. Still have some slight discomfort in the left shou lder worsened with palpation, abduction of the arm. More likely bursitis vs OA. 1630-D/w with Dr Salcido who accepted admission. Requesting metoprolol 12.5mg BID for bp control. Aware heart rate is 58. Will order a one time dose. Medical Decision Making MDM Narrative Medical decision making narrative: Atypical chest pain Medical Records Medical records reviewed: Yes I reviewed the patient's medical records. Lab Data Lab results reviewed: Yes I reviewed the patient's lab results. Result diagrams: 01/31/21 11:03 01/31/21 11:03 Labs: Lab Results 01/31/21 01/31/21 01/31/21 Range/Units 11:03 11:03 11:03 WBC 9.3 (4.8-10.8) X10*3/uL RBC 4.14 L (4.20-5.50) X10*6/uL Hgb 13.2 (12.0-16.0) g/dl Hct 39.2 (37-47) % MCV 94.7 (80-98) fL MCH 31.9 (27.0-33.0) pg MCHC 33.7 (31.0-35.0) g/dl RDW 11.8 (11.0-16.0) % Plt Count 293 (160-400) X10*3/uL MPV 10.6 (9.4-12.3) fL Immature Gran % (Auto) 0.2 (0.0-0.4) % Neut % (Auto) 60.7 (45-73) % Lymph % (Auto) 26.8 (20-40) % [place] % (Auto) 10.1 (2-11) % Eos % (Auto) 1.7 (0-4) % Baso % (Auto) 0.5 (0-2) % Lymph # (Auto) 2.5 (1.2-4.9) X10*3/uL [place] # (Auto) 0.9 (0.1-1.2) X10*3/uL Eos # (Auto) 0.2 (0.0-0.4) X10*3/uL Baso # (Auto) 0.1 (0.0-0.2) X10*3/uL Abs Immat Gran (auto) 0.02 (0.00-0.03) X10*3/uL Absolute Neuts (auto) 5.7 (2.0-8.3) X10*3/uL Absolute Nucleated RBC 0.000 (0.0-0.012) X10*3/uL Nucleated RBC % (auto) 0.0 (0.0-0.2) /100WBC PT (9.9-13.0) SEC INR (0.9-1.1) APTT (24.1-38.0) SEC D-Dimer NG/ML Sodium 139 (135-145) mmol/L Potassium 5.3 H (3.3-5.1) mmol/L Chloride 106 (96-108) mmol/L Carbon Dioxide 24 (22-29) mmol/L Anion Gap 14 (12-20) BUN 9 (9-16) mg/dL Creatinine 0.67 (0.5-1.4) mg/dL Estim Creat Clear Calc 74.4 Estimated GFR > 60 Random Glucose 88 (60-115) mg/dL Calcium 10.2 (8.4-10.2) mg/dL Magnesium 2.2 (1.6-2.6) mg/dL Total Bilirubin 0.8 (0.0-1.0) mg/dL Direct Bilirubin 0.2 (0.0-0.5) mg/dL AST 30 (5-31) U/L ALT 31 (0-31) U/L Alkaline Phosphatase 75 (39-117) U/L Troponin I High Sens 7.4 D (<3.5-17.0) ng/L Total Protein 7.1 (6.5-8.0) g/dL Albumin 4.2 (3.5-5.0) g/dL COVID-19 (PALLAVI) (Negative) COVID-19 Clin Com 01/31/21 01/31/21 01/31/21 Range/Units 12:37 14:02 15:04 WBC (4.8-10.8) X10*3/uL RBC (4.20-5.50) X10*6/uL Hgb (12.0-16.0) g/dl Hct (37-47) % MCV (80-98) fL MCH (27.0-33.0) pg MCHC (31.0-35.0) g/dl RDW (11.0-16.0) % Plt Count (160-400) X10*3/uL MPV (9.4-12.3) fL Immature Gran % (Auto) (0.0-0.4) % Neut % (Auto) (45-73) % Lymph % (Auto) (20-40) % [place] % (Auto) (2-11) % Eos % (Auto) (0-4) % Baso % (Auto) (0-2) % Lymph # (Auto) (1.2-4.9) X10*3/uL [place] # (Auto) (0.1-1.2) X10*3/uL Eos # (Auto) (0.0-0.4) X10*3/uL Baso # (Auto) (0.0-0.2) X10*3/uL Abs Immat Gran (auto) (0.00-0.03) X10*3/uL Absolute Neuts (auto) (2.0-8.3) X10*3/uL Absolute Nucleated RBC (0.0-0.012) X10*3/uL Nucleated RBC % (auto) (0.0-0.2) /100WBC PT 11.4 (9.9-13.0) SEC INR 1.0 (0.9-1.1) APTT 33.2 (24.1-38.0) SEC D-Dimer < 200 NG/ML Sodium (135-145) mmol/L Potassium (3.3-5.1) mmol/L Chloride (96-108) mmol/L Carbon Dioxide (22-29) mmol/L Anion Gap (12-20) BUN (9-16) mg/dL Creatinine (0.5-1.4) mg/dL Estim Creat Clear Calc Estimated GFR Random Glucose (60-115) mg/dL Calcium (8.4-10.2) mg/dL Magnesium (1.6-2.6) mg/dL Total Bilirubin (0.0-1.0) mg/dL Direct Bilirubin (0.0-0.5) mg/dL AST (5-31) U/L ALT (0-31) U/L Alkaline Phosphatase (39-117) U/L Troponin I High Sens 16.7 D 24.1 H* (<3.5-17.0) ng/L Total Protein (6.5-8.0) g/dL Albumin (3.5-5.0) g/dL COVID-19 (PALLAVI) (Negative) COVID-19 Clin Com 01/31/21 Range/Units 15:04 WBC (4.8-10.8) X10*3/uL RBC (4.20-5.50) X10*6/uL Hgb (12.0-16.0) g/dl Hct (37-47) % MCV (80-98) fL MCH (27.0-33.0) pg MCHC (31.0-35.0) g/dl RDW (11.0-16.0) % Plt Count (160-400) X10*3/uL MPV (9.4-12.3) fL Immature Gran % (Auto) (0.0-0.4) % Neut % (Auto) (45-73) % Lymph % (Auto) (20-40) % [place] % (Auto) (2-11) % Eos % (Auto) (0-4) % Baso % (Auto) (0-2) % Lymph # (Auto) (1.2-4.9) X10*3/uL [place] # (Auto) (0.1-1.2) X10*3/uL Eos # (Auto) (0.0-0.4) X10*3/uL Baso # (Auto) (0.0-0.2) X10*3/uL Abs Immat Gran (auto) (0.00-0.03) X10*3/uL Absolute Neuts (auto) (2.0-8.3) X10*3/uL Absolute Nucleated RBC (0.0-0.012) X10*3/uL Nucleated RBC % (auto) (0.0-0.2) /100WBC PT (9.9-13.0) SEC INR (0.9-1.1) APTT (24.1-38.0) SEC D-Dimer NG/ML Sodium (135-145) mmol/L Potassium (3.3-5.1) mmol/L Chloride (96-108) mmol/L Carbon Dioxide (22-29) mmol/L Anion Gap (12-20) BUN (9-16) mg/dL Creatinine (0.5-1.4) mg/dL Estim Creat Clear Calc Estimated GFR Random Glucose (60-115) mg/dL Calcium (8.4-10.2) mg/dL Magnesium (1.6-2.6) mg/dL Total Bilirubin (0.0-1.0) mg/dL Direct Bilirubin (0.0-0.5) mg/dL AST (5-31) U/L ALT (0-31) U/L Alkaline Phosphatase (39-117) U/L Troponin I High Sens (<3.5-17.0) ng/L Total Protein (6.5-8.0) g/dL Albumin (3.5-5.0) g/dL COVID-19 (PALLAVI) Negative (Negative) COVID-19 Clin Com See Note Imaging Data Chest x-ray: Attestation: I personally reviewed and interpreted this imaging study as follows: Radiologist's impression: EXAMINATION: XR CHEST CLINICAL INFORMATION: Chest pain COMPARISON: Previous chest x-ray November 2020 TECHNIQUE: 2 views of the chest were obtained. FINDINGS: No significant abnormality is noted involving the heart, lungs, mediastinum, bony thorax or soft tissues. XR/XR chest 2V IMPRESSION: Unremarkable examination. CT scan - chest: Attestation: I personally reviewed and interpreted this imaging study as follows: Radiologist's impression: FINDINGS: QUALITY OF STUDY/CONTRAST BOLUS: Satisfactory. PULMONARY ARTERIES: No central or segmental pulmonary emboli.? THORACIC AORTA: No aneurysm or dissection. LUNG: There is a 4 mm calcified right upper lobe nodule near the mediastinum axial image 176 series 8. There is a 4 mm calcified left lower lobe nodule axial image 49 series 7. The lungs are otherwise clear. PLEURA: No pleural effusion or pneumothorax. MEDIASTINUM: Normal heart size.? No pericardial effusion. There is a small calcified posterior mediastinal lymph node measuring 5 mm posterior to the esophagus axial image 44 series 6. No enlarged lymph nodes.? No evidence of septal bowing or right heart strain. CHEST WALL/AXILLA: No axillary or internal mammary lymphadenopathy. There are collateral vessels in the right chest wall. OSSEOUS STRUCTURES: There is a focal small 5 mm sclerotic lesion in the right at T4 vertebral body. No fracture is seen. UPPER ABDOMEN: Unremarkable.? No reflux of contrast into the hepatic veins to suggest elevated right heart pressures. CT/CT angio chest PE protocol IMPRESSION: No evidence of pulmonary embolism. Evidence of old granulomatous disease ? VTE: negative ECG Data Attestation: I personally reviewed and interpreted this ECG as follows: Interpretation: Initial EKG 1025-sinus bradycardia with a rate of 58, normal NM, normal QRS, QT 428, T-wave inversions leads V1-V3 1453-SB with rate 53, normal NM, normal QRS, QTC 458, T-wave inversions in leads V1 through V4 Discharge Plan Discharge Clinical Impression: Chest pain, Acute non-ST elevation myocardial infarction (NSTEMI) Patient Disposition: Admitted As Inpatient
[2021-01-31 11:31] LABS: Basophils Absolute Auto 0.1 X10*3/uL (0.0-0.2); Basophils Percent Auto 0.5 % (0-2); Eosinophils Absolute Auto 0.2 X10*3/uL (0.0-0.4); Eosinophils Percent Auto 1.7 % (0-4); Hematocrit 39.2 % (37-47); Hemoglobin 13.2 g/dl (12.0-16.0); Imm Gran Abs Auto 0.02 X10*3/uL (0.00-0.03); Imm Gran Pct Auto 0.2 % (0.0-0.4); Lymphocytes Absolute Auto 2.5 X10*3/uL (1.2-4.9); Lymphocytes Percent Auto 26.8 % (20-40); Mean Corpuscular HGB Conc 33.7 g/dl (31.0-35.0); Mean Corpuscular Hemoglobin 31.9 pg (27.0-33.0); Mean Corpuscular Volume 94.7 fL (80-98); Mean Platelet Volume 10.6 fL (9.4-12.3); Monocytes Absolute Auto 0.9 X10*3/uL (0.1-1.2); Monocytes Percent Auto 10.1 % (2-11); Neutrophils Absolute Auto 5.7 X10*3/uL (2.0-8.3); Neutrophils Percent Auto 60.7 % (45-73); Platelet Count 293 X10*3/uL (160-400); Red Blood Count 4.14 X10*6/uL (4.20-5.50); Red Cell Distribution Width 11.8 % (11.0-16.0); White Blood Count 9.3 X10*3/uL (4.8-10.8)
[2021-01-31 11:39] LABS: Troponin-I High Sensitivity 7.4 ng/L (<3.5-17.0)
[2021-01-31 11:48] LABS: Alanine Aminotransferase 31 U/L (0-31); Albumin Level 4.2 g/dL (3.5-5.0); Alkaline Phosphatase 75 U/L (39-117); Anion Gap 14 (12-20); Aspartate Amino Transferase 30 U/L (5-31); Bilirubin Direct 0.2 mg/dL (0.0-0.5); Bilirubin Total 0.8 mg/dL (0.0-1.0); Blood Urea Nitrogen 9 mg/dL (9-16); Calcium 10.2 mg/dL (8.4-10.2); Carbon Dioxide 24 mmol/L (22-29); Chloride 106 mmol/L (96-108); Creatinine Clr Calc Pharmacy 74.4; Estimated Glomerular Filt Rate > 60; Glucose Random 88 mg/dL (60-115); Magnesium 2.2 mg/dL (1.6-2.6); Potassium 5.3 mmol/L (3.3-5.1); Sodium 139 mmol/L (135-145); Total Protein 7.1 g/dL (6.5-8.0)
[2021-01-31] MEDS: Acetaminophen 325 MG TABLET 975 MG PO (11:50)
[2021-01-31 13:10] LABS: Troponin-I High Sensitivity 16.7 ng/L (<3.5-17.0)
[2021-01-31 14:32] LABS: Troponin-I High Sensitivity 24.1 ng/L (<3.5-17.0)
--- NOTE | 2021-01-31 14:37 | ECG_ITS ---
Test Reason : CHEST PAIN Blood Pressure : / mmHG Vent. Rate : 053 BPM Atrial Rate : 053 BPM P-R Int : 176 ms QRS Dur : 080 ms QT Int : 458 ms P-R-T Axes : 021 026 041 degrees QTc Int : [address] & T wave abnormality, consider anterior ischemia Abnormal ECG When compared with ECG of 31-JAN-2021 10:25, No significant changes seen Referred By: Lisa Alvarez Electronically Signed By:NEVAEH MARIE MD
[2021-01-31] MEDS: Aspirin 81 MG TAB.CHEW 324 MG PO (15:08)
[2021-01-31 15:23] LABS: Prothrombin Time 11.4 SEC (9.9-13.0)
[2021-01-31 15:26] LABS: Partial Thromboplastin Time 33.2 SEC (24.1-38.0)
[2021-01-31 15:27] LABS: D Dimer < 200 NG/ML
[2021-01-31 15:29] LABS: COVID-19 Test Negative (Negative)
--- NOTE | 2021-01-31 15:34 | PC.NURSE ---
per MD pt to get CT first and then start medication
[2021-01-31] MEDS: iohexoL 350 MG/ML 100 ML INFUS..BTL IV (16:08)
[2021-01-31] MEDS: Heparin Sodium,Porcine 5,000 UNIT/ML VIAL 3700 UNIT IVPUSH (16:33)
--- NOTE | 2021-01-31 16:33 | P.HPHOSP_ITS ---
History of Present Illness Date of Service: 01/31/21 Attending physician on admission: Melina Salcido Chief Complaint: nstemi 60-year-old female with history of hypertension hyperlipidemia, GERD-came to the hospital because of left arm discomfort and numbness and some dizziness it started after she took her blood pressure medications in the morning and blood pressure she said was elevated. She subsequently came to the hospital-currently says her chest pain resolved. Denies any headache or chest pain or shortness of breath currently. Does not have any pain in the arm also. In addition she has recently started on blood pressure medication a month ago as per the patient and she was also scheduled for stat nuclear test recently for February 16. Denies any new complaint of shortness of breath or abdominal pain or fever or chills or nausea or vomiting or cough Denies any weakness or numbness. Lab imaging and EKG reviewed and interpreted myself. trops 16.7-24.1, EKG shows T-wave inversions from V1 to v4. Mild hyperkalemia ED physician discussed the case with cardiology and recommended admission for NSTEMI-patient already started on heparin drip. Currently chest pain-free Review of Systems Review of Systems: As above. Yes all other systems are reviewed and are negative [facility] Medical History Alcohol abuse Cervical dysplasia History of uterine fibroid Hypercholesterolemia Overweight (BMI 25.0-29.9) Tubular adenoma of colon Vitamin D deficiency Family History Father Hypertension Mother Hypertension Stroke CVD (cardiovascular disease) Sister Stroke Brother Substance abuse Bipolar 1 disorder Mental health disorder Pertinent family history: She says her mother and sister has history of CVA. 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 Allergies Allergy/AdvReac Type Severity Reaction Status Date / Time No Known Allergies Allergy Verified 01/24/21 10:01 Active Medications: Current Medications Atorvastatin Calcium (Atorvastatin Calcium 80 Mg Tablet) 80 mg PO BEDTIME KAVYA Heparin Sodium/Sodium Chloride () 25,000 unit in 250 mls @ 0 mls/hr IVCONT .Q0M KAVYA; Protocol Sodium Chloride (0.9 % Sodium Chloride Flush 3 Ml Syringe) 3 ml IVFLUSH QSHIFT KAVYA Home Medications Medication Instructions Recorded Confirmed Last Taken Type cholecalciferol (vitamin D3) 25 25 mcg PO DAILY 02/20/20 12/20/20 Unknown History mcg (1,000 unit) capsule simvastatin 20 mg tablet 20 mg PO BEDTIME 01/31/21 01/31/21 Unknown History Physical Exam Vital Signs and Narrative: Vital Signs: Last Vital Signs Temp 98.6 F 01/31/21 15:19 Pulse 58 01/31/21 15:19 Resp 20 01/31/21 15:19 BP 144/68 H 01/31/21 15:19 Pulse Ox 99 01/31/21 15:19 Body Mass Index 26.7 Physical exam: Appearance: Alert.? Oriented X3.? not in distress.? Eyes: Pupils equal, round and reactive to light.? Sclera nonicteric.? ENT: Pharynx normal.? Moist mucous membranes. cvs: rrr, [id number] , no murmur res: clear to auscultation ,no rhonchii or wheezing abd: no rebound or guarding ,nt, bs present. ext pulses present , no cyanosis. neuro: axo3 , nonfocal. Results Labs CBC and Chem 7: 01/31/21 11:03 01/31/21 11:03 Labs: Laboratory Results - last 24 hr 01/31/21 01/31/21 01/31/21 11:03 11:03 11:03 MCV 94.7 MCH 31.9 MCHC 33.7 RDW 11.8 Plt Count 293 MPV 10.6 Immature Gran % (Auto) 0.2 Neut % (Auto) 60.7 Lymph % (Auto) 26.8 [place] % (Auto) 10.1 Eos % (Auto) 1.7 Baso % (Auto) 0.5 Lymph # (Auto) 2.5 [place] # (Auto) 0.9 Eos # (Auto) 0.2 Baso # (Auto) 0.1 Abs Immat Gran (auto) 0.02 Absolute Neuts (auto) 5.7 Absolute Nucleated RBC 0.000 Nucleated RBC % (auto) 0.0 PT INR APTT D-Dimer Anion Gap 14 Estim Creat Clear Calc 74.4 Estimated GFR > 60 Random Glucose 88 Calcium 10.2 Magnesium 2.2 Total Bilirubin 0.8 Direct Bilirubin 0.2 AST 30 ALT 31 Alkaline Phosphatase 75 Troponin I High Sens 7.4 D Total Protein 7.1 Albumin 4.2 COVID-19 (PALLAVI) COVID-19 Clin Com 01/31/21 01/31/21 01/31/21 12:37 14:02 15:04 MCV MCH MCHC RDW Plt Count MPV Immature Gran % (Auto) Neut % (Auto) Lymph % (Auto) [place] % (Auto) Eos % (Auto) Baso % (Auto) Lymph # (Auto) [place] # (Auto) Eos # (Auto) Baso # (Auto) Abs Immat Gran (auto) Absolute Neuts (auto) Absolute Nucleated RBC Nucleated RBC % (auto) PT 11.4 INR 1.0 APTT 33.2 D-Dimer < 200 Anion Gap Estim Creat Clear Calc Estimated GFR Random Glucose Calcium Magnesium Total Bilirubin Direct Bilirubin AST ALT Alkaline Phosphatase Troponin I High Sens 16.7 D 24.1 H* Total Protein Albumin COVID-19 (PALLAVI) COVID-19 Clin Com 01/31/21 15:04 MCV MCH MCHC RDW Plt Count MPV Immature Gran % (Auto) Neut % (Auto) Lymph % (Auto) [place] % (Auto) Eos % (Auto) Baso % (Auto) Lymph # (Auto) [place] # (Auto) Eos # (Auto) Baso # (Auto) Abs Immat Gran (auto) Absolute Neuts (auto) Absolute Nucleated RBC Nucleated RBC % (auto) PT INR APTT D-Dimer Anion Gap Estim Creat Clear Calc Estimated GFR Random Glucose Calcium Magnesium Total Bilirubin Direct Bilirubin AST ALT Alkaline Phosphatase Troponin I High Sens Total Protein Albumin COVID-19 (PALLAVI) Negative COVID-19 Clin Com See Note Imaging Radiologist's Impressions: Impressions Chest X-Ray 01/31/21 10:17 IMPRESSION: Unremarkable examination. Chest CTA 01/31/21 14:37 IMPRESSION: No evidence of pulmonary embolism. Evidence of old granulomatous disease VTE: negative Assessment and Plan (1) Chest pain: Status: Acute (2) Acute non-ST elevation myocardial infarction (NSTEMI): Status: Acute 1. Possible Nstemi: CTA negative for pulmonary embolism. Troponin mild elevation, EKG changes ST depression in V1 to v4 Patient was started on IV heparin, aspirin, statin, also received BB. Echo lipid panel in am Cardio consult 2.htn: hold lisinopril-mild hyperkalemia Hold beta-blockers for now heart rate is in 58 range. added amlodipine 3.hlp: continue statins 4. gerd: added omeprazole. Med reconciliation is still pending. dvt prophylax: on heparin drip Medical reconciliation is still pending, ED staff aware to complete it. Assessment and plan including NSTEMI management and htn management discussed with the patient in detail length including use of IV heparin and code status patient is full code. total time spent 70 min. Quality Stroke Does the patient have a stroke diagnosis?: No VTE Prior VTE?: No VTE Risk Level:: Medical - moderate - high VTE Device Contraindication: N/A - Device Ordered VTE Drug Contraindication: N/A - Med Ordered
[2021-01-31] MEDS: Heparin Sodium,Porcine/1/2NS 25,000 UNIT/250 ML IV.SOLN 7.46 UNIT IVCONT (16:39)
[2021-01-31] MEDS: Metoprolol Tartrate 12.5 MG HALFTAB PO (17:40)
[2021-01-31] MEDS: amLODIPine Besylate 2.5 MG TABLET PO (17:41)
[2021-01-31] MEDS: Sodium Polystyrene Sulfon/Sorb 15 GM/60 ML ORAL.SUSP PO (17:42)
[2021-01-31] MEDS: Atorvastatin Calcium 80 MG TABLET PO (20:20)
[2021-01-31] MEDS: 0.9 % Sodium Chloride Flush 3 ML SYRINGE IVFLUSH (20:24)
[2021-01-31 22:50] LABS: PTT Heparin Drip 86.3 SEC (53-77.9)
[2021-02-01 03:16] VITALS: BP 113/56; PULSE 54; RESP 18; TEMP 36.5; O2SAT 97
[2021-02-01 04:50] LABS: Hematocrit 37.6 % (37-47); Mean Corpuscular HGB Conc 34.6 g/dl (31.0-35.0); Mean Corpuscular Hemoglobin 32.1 pg (27.0-33.0); Mean Corpuscular Volume 92.8 fL (80-98); Mean Platelet Volume 10.3 fL (9.4-12.3); Platelet Count 302 X10*3/uL (160-400); Red Blood Count 4.05 X10*6/uL (4.20-5.50); Red Cell Distribution Width 11.7 % (11.0-16.0); White Blood Count 9.2 X10*3/uL (4.8-10.8)
[2021-02-01 04:59] LABS: PTT Heparin Drip 65.3 SEC (53-77.9)
[2021-02-01 05:14] VITALS: BMI 27.2
[2021-02-01 05:19] LABS: Anion Gap 13 (12-20); Blood Urea Nitrogen 10 mg/dL (9-16); Calcium 9.5 mg/dL (8.4-10.2); Carbon Dioxide 27 mmol/L (22-29); Chloride 107 mmol/L (96-108); Cholesterol 205 mg/dL; Creatinine Clr Calc Pharmacy 75.1; Estimated Glomerular Filt Rate > 60; Glucose Random 103 mg/dL (60-115); HDL Cholesterol 71 mg/dL; LDL Cholesterol Calculated 116 mg/dl; Potassium 3.7 mmol/L (3.3-5.1); Sodium 143 mmol/L (135-145); Triglycerides 94 mg/dL
[2021-02-01] MEDS: Omeprazole 20 MG CAPSULE.DR PO (05:51)
[2021-02-01 09:14] VITALS: BP 119/77; PULSE 69; RESP 20; TEMP 36.7; O2SAT 97
--- NOTE | 2021-02-01 09:21 | PM.CNCAR ---
History of Present Illness History of Present Illness Date of Service: 02/01/21 Requesting physician: Gonzalo Kim Chief complaint: nstemi Narrative: I was requested to see Bettie in cardiology consultation today for acute onset chest pain with abnormal troponins in EKG changes suggestive of acute coronary syndrome. 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 She has been having intermittent retrosternal chest pressure/tightness for about a month. Symptoms happen with minimal exertion as well as at rest. She initially thought that the symptoms are related to high blood pressure. She underwent a stress test within last couple weeks which was abnormal and was scheduled to see cardiology as well as undergo nuclear stress test in near future. Her yesterday while she was at home folding her laundry and rushing she developed retrosternal chest pressure with tightness while resting. She then checked her blood pressure initially blood pressure was systolic 143. She continues to have chest pressure for about 10 minutes and recheck her blood pressure went up to 210 systolic and she got concerned. She started developing some nausea and radiation with numbness to the left shoulder as well as the left side of the face. Symptoms persisted for about 20 minutes and then she decided to come to the emergency room, her drove over. She had no shortness of breath, diaphoresis. By time she came to the emergency room with symptoms have resolved. However EKG showed T-wave inversion from V1 to V4. I was consulted and I advised patient to be admitted to the hospital and start on IV heparin drip. She has received statins. She was recently started on what appears to be lisinopril and was mildly hyperkalemic on admission. This has been withheld. She was started on Norvasc as an antianginal. She has remained chest pain-free while she has been here. Blood pressures been controlled. Her troponins were not trended but kevin more than 50% initial troponin of 7 and last troponin of 24 high sensitivity. Her echocardiogram done this morning shows possible wall motion abnormality of the basal inferior inferoseptal wall. Overall LV systolic function is normal. Review of Systems Constitutional: Constitutional: Reports no additional constitutional complaints Eyes: Eyes: Reports no additional eye complaints Cardiovascular: Cardiovascular: Reports chest pain at rest, Reports chest pain with activity, Denies lightheadedness, Denies Loss of Consciousness, Reports radiating jaw, neck or arm pain, Denies palpitations and Denies dyspnea Respiratory: Respiratory: Reports no additional respiratory complaints and Denies dyspnea Gastrointestinal: Gastrointestinal: Reports no additional gastrointestinal complaints Genitourinary: Genitourinary: Reports no additional female genitourinary complaints Musculoskeletal: Musculoskeletal: Reports no additional musculoskeletal complaints Integumentary/Breasts: Skin/Breast: Reports system reviewed and no additional complaints, except as docu Neurologic: Reports system reviewed and no additional complaints, except as documented Psychiatric: Psychiatric: Reports no additional psychiatric complaints Endocrine: Endocrine: Denies palpitations [facility] Past Medical History Medical History Alcohol abuse Cervical dysplasia History of uterine fibroid Hypercholesterolemia Overweight (BMI 25.0-29.9) Tubular adenoma of colon Vitamin D deficiency Family History Family History Father Hypertension Mother Hypertension Stroke CVD (cardiovascular disease) Sister Stroke Brother Substance abuse Bipolar 1 disorder Mental health disorder Surgical History Surgical History History of tubal ligation Hx of colonoscopy Social History Social History Household Members: Family Housing: House Do you presently have visiting nurse or other home services: No Alcohol intake: never Patient Tobacco Use Status: Former Tobacco user Quit Date: 2 weeks ago Tobacco use type: Cigarette Cigarettes Per Day: 3 Years Smoked: 25 e-Cigarette/Vaping Use: Never Used Second Hand Smoke Exposure: No service: No Current occupational status: employed 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 [employer] Allergies Allergy/AdvReac Type Severity Reaction Status Date / Time No Known Allergies Allergy Verified 01/24/21 10:01 Active Medications: Current Medications Acetaminophen (Acetaminophen 325 Mg Tablet) 650 mg PO Q6H PRN PRN Reason: Breakthrough Pain Alprazolam (Alprazolam 0.25 Mg Tablet) 0.25 mg PO BEDTIME PRN PRN Reason: anxiety Amlodipine Besylate (Amlodipine Besylate 2.5 Mg Tablet) 2.5 mg PO DAILY KAVYA; Protocol Last Admin: 01/31/21 17:41 Dose: 2.5 mg Documented by: Aspirin (Aspirin Enteric Coated 81 Mg Tablet.) 81 mg PO DAILY [facility] Atorvastatin Calcium (Atorvastatin Calcium 80 Mg Tablet) 80 mg PO BEDTIME [facility] Last Admin: 01/31/21 20:20 Dose: 80 mg Documented by: Heparin Sodium/Sodium Chloride () 25,000 unit in 250 mls @ 0 mls/hr IVCONT .Q0M [facility]; Protocol Last Titration: 02/01/21 05:06 Dose: 10 units/kg/hr, 6.21 mls/hr Documented by: Omeprazole (Omeprazole 20 Mg Capsule.) 20 mg PO DAILY@0630 [facility] Last Admin: 02/01/21 05:51 Dose: 20 mg Documented by: Sodium Chloride (0.9 % Sodium Chloride Flush 3 Ml Syringe) 3 ml IVFLUSH QSHIFT [facility] Last Admin: 01/31/21 20:24 Dose: 3 ml Documented by: Vitamin D (Cholecalciferol (Vitamin D3) 25 Mcg Tablet) 25 mcg PO DAILY [facility] Home Medications Medication Instructions Recorded Confirmed Last Taken Type cholecalciferol (vitamin D3) 25 25 mcg PO DAILY 02/20/20 01/31/21 Unknown History mcg (1,000 unit) capsule simvastatin 20 mg tablet 20 mg PO BEDTIME 01/31/21 01/31/21 Unknown History Physical Exam Vital Signs: Vital Signs: Last Vital Signs Temp 98.0 F 02/01/21 09:14 Pulse 69 02/01/21 09:14 Resp 20 02/01/21 09:14 BP 119/77 02/01/21 09:14 Pulse Ox 97 02/01/21 09:14 Body Mass Index 27.2 Const: General: cooperative, comfortable, no acute distress, alert and awake Nutritional Appearance: overweight Orientation/consciousness: patient oriented x3 Limitations: no limitations HENMT: Head: Yes normocephalic and Yes atraumatic Neck: Neck: Yes trachea midline, Yes supple and Yes no JVD Chest: Chest palpation & inspection: normal inspection of the chest Resp: Effort & Inspection: normal respiratory effort Auscultation: clear to auscultation bilaterally Cardio: Jugular venous distension: no JVD Palpation: normal PMI Rate: regular rate Rhythm: regular rhythm Heart sounds: S1 normal heart sound present, S2 normal heart sound present, no click, no gallops and no murmurs GI: Auscultation: normal bowel sounds Skin: General skin exam: no rashes or lesions noted Neuro: General: patient oriented x3 and no focal motor deficits Extrem: General: Yes no clubbing, cyanosis or edema Psych: Appearance: grossly normal Results Labs and Meds Result diagrams: 02/01/21 04:28 02/01/21 04:28 Lab results: Laboratory Results - last 24 hr 01/31/21 01/31/21 01/31/21 11:03 11:03 11:03 WBC 9.3 RBC 4.14 L Hgb 13.2 Hct 39.2 MCV 94.7 MCH 31.9 MCHC 33.7 RDW 11.8 Plt Count 293 MPV 10.6 Immature Gran % (Auto) 0.2 Neut % (Auto) 60.7 Lymph % (Auto) 26.8 [place] % (Auto) 10.1 Eos % (Auto) 1.7 Baso % (Auto) 0.5 Lymph # (Auto) 2.5 [place] # (Auto) 0.9 Eos # (Auto) 0.2 Baso # (Auto) 0.1 Abs Immat Gran (auto) 0.02 Absolute Neuts (auto) 5.7 Absolute Nucleated RBC 0.000 Nucleated RBC % (auto) 0.0 PT INR APTT PTT (Heparin Protocol) D-Dimer Sodium 139 Potassium 5.3 H Chloride 106 Carbon Dioxide 24 Anion Gap 14 BUN 9 Creatinine 0.67 Estim Creat Clear Calc 74.4 Estimated GFR > 60 Random Glucose 88 Calcium 10.2 Magnesium 2.2 Total Bilirubin 0.8 Direct Bilirubin 0.2 AST 30 ALT 31 Alkaline Phosphatase 75 Troponin I High Sens 7.4 D Total Protein 7.1 Albumin 4.2 Triglycerides Cholesterol LDL Cholesterol, Calc HDL Cholesterol COVID-19 (PALLAVI) COVID-19 Clin Com 01/31/21 01/31/21 01/31/21 12:37 14:02 15:04 WBC RBC Hgb Hct MCV MCH MCHC RDW Plt Count MPV Immature Gran % (Auto) Neut % (Auto) Lymph % (Auto) [place] % (Auto) Eos % (Auto) Baso % (Auto) Lymph # (Auto) [place] # (Auto) Eos # (Auto) Baso # (Auto) Abs Immat Gran (auto) Absolute Neuts (auto) Absolute Nucleated RBC Nucleated RBC % (auto) PT 11.4 INR 1.0 APTT 33.2 PTT (Heparin Protocol) D-Dimer < 200 Sodium Potassium Chloride Carbon Dioxide Anion Gap BUN Creatinine Estim Creat Clear Calc Estimated GFR Random Glucose Calcium Magnesium Total Bilirubin Direct Bilirubin AST ALT Alkaline Phosphatase Troponin I High Sens 16.7 D 24.1 H* Total Protein Albumin Triglycerides Cholesterol LDL Cholesterol, Calc HDL Cholesterol COVID-19 (PALLAVI) COVID-19 Clin Com 01/31/21 01/31/21 02/01/21 15:04 22:35 04:28 WBC RBC Hgb Hct MCV MCH MCHC RDW Plt Count MPV Immature Gran % (Auto) Neut % (Auto) Lymph % (Auto) [place] % (Auto) Eos % (Auto) Baso % (Auto) Lymph # (Auto) [place] # (Auto) Eos # (Auto) Baso # (Auto) Abs Immat Gran (auto) Absolute Neuts (auto) Absolute Nucleated RBC Nucleated RBC % (auto) PT INR APTT PTT (Heparin Protocol) 86.3 H 65.3 D D-Dimer Sodium Potassium Chloride Carbon Dioxide Anion Gap BUN Creatinine Estim Creat Clear Calc Estimated GFR Random Glucose Calcium Magnesium Total Bilirubin Direct Bilirubin AST ALT Alkaline Phosphatase Troponin I High Sens Total Protein Albumin Triglycerides Cholesterol LDL Cholesterol, Calc HDL Cholesterol COVID-19 (PALLAVI) Negative COVID-19 Clin Com See Note 02/01/21 02/01/21 04:28 04:28 WBC 9.2 RBC 4.05 L Hgb 13.0 Hct 37.6 MCV 92.8 MCH 32.1 MCHC 34.6 RDW 11.7 Plt Count 302 MPV 10.3 Immature Gran % (Auto) Neut % (Auto) Lymph % (Auto) [place] % (Auto) Eos % (Auto) Baso % (Auto) Lymph # (Auto) [place] # (Auto) Eos # (Auto) Baso # (Auto) Abs Immat Gran (auto) Absolute Neuts (auto) Absolute Nucleated RBC 0.000 Nucleated RBC % (auto) 0.0 PT INR APTT PTT (Heparin Protocol) D-Dimer Sodium 143 Potassium 3.7 D Chloride 107 Carbon Dioxide 27 Anion Gap 13 BUN 10 Creatinine 0.67 Estim Creat Clear Calc 75.1 Estimated GFR > 60 Random Glucose 103 Calcium 9.5 D Magnesium Total Bilirubin Direct Bilirubin AST ALT Alkaline Phosphatase Troponin I High Sens Total Protein Albumin Triglycerides 94 Cholesterol 205 LDL Cholesterol, Calc 116 HDL Cholesterol 71 COVID-19 (PALLAVI) COVID-19 Clin Com EKG 2. Shows normal sinus rhythm with deep T-wave inversions in lead V1 V2 and V3 with mild nonspecific T-wave changes in V4. These all new compared to EKG from 2 months ago Imaging Radiologist's impression: Impressions Chest X-Ray 01/31/21 10:17 IMPRESSION: Unremarkable examination. Chest CTA 01/31/21 14:37 IMPRESSION: No evidence of pulmonary embolism. Evidence of old granulomatous disease VTE: negative Head CT 02/01/21 00:01 IMPRESSION: No acute intracranial pathology. Assessment and Plan (1) Acute coronary syndrome: Status: Acute Patient presents with symptoms and signs and markers suggestive of acute coronary syndrome with high risk features with new EKG changes, but normal markers as well as prolonged chest pain. Patient currently symptom-free. Echocardiogram shows possible wall motion abnormality as well inferoseptal and inferior wall. Patient will require cardiac catheterization for definitive management of her acute coronary syndrome. I discussed with her the need for cardiac catheterization including risk, benefits, alternatives and 2nd opinion. She is agreeable. Will set up for transfer to [facility]. She is currently on aspirin as well as high-intensity statin and Norvasc therapy. Her beta-blockers have been withheld due to baseline bradycardia. Continue IV heparin therapy. Management and possible outcomes related to cardiac catheterization were discussed in details. She understands agrees. Will follow up in the clinic after cardiac catheterization. Thank you for allowing me to partake in her care Procedures Date of Service Date of Service: 02/01/21
[2021-02-01 09:25] VITALS: BP 119/77; PULSE 69
[2021-02-01] MEDS: amLODIPine Besylate 2.5 MG TABLET PO (09:25)
[2021-02-01] MEDS: 0.9 % Sodium Chloride Flush 3 ML SYRINGE IVFLUSH (09:25)
[2021-02-01] MEDS: Aspirin Enteric Coated 81 MG TABLET.DR PO (09:25)
[2021-02-01] MEDS: Cholecalciferol (Vitamin D3) 25 MCG TABLET PO (09:25)
--- NOTE | 2021-02-01 09:39 | P.DS_ITS ---
DS: Providers Provider Date of Service: 02/01/21 Date of admission: 01/31/21 16:29 Primary care physician: Gian Clayton MD Consults: 01/31/21 16:31 Consult to Cardiology Routine Consulting Provider: Golden Lloyd Reason for consultation: nstemi Has provider been notified: No DS: Diagnosis Discharge Diagnosis (1) Acute coronary syndrome: Status: Acute DS: Summary Hospital Course Hospital Course: CC: chest pain 60/F with HTN, HLD who presented with presented with chest pain associated with nausea and radiating to left arm, uncontrolled HTN with SBP 210, elevated troponins in EKG changes suggestive of acute coronary syndrome.?Pain seem more prominent with exertion. EKG showed T-wave inversion from V1 to V4.? She has been mecically treaed with beta david, ASA, Lipitor 80 and I haparin. An echocardiogram done this morning shows possible wall motion abnormality of the basal inferior inferoseptal wall.? Overall LV systolic function is normal.? Cardiology has seen patient advises further work up with cardiac catherization. Of note her blood pressure is much better controlled. She was on HCTZ-Lisinopril but has been discontinued d/t hyerkalemia and Norvasc added Time Spent with Patient Time attestation: Total time spent providing and/or coordinating discharge services: Discharge coordination time: Greater than 30 minutes Quality: Stroke Does the patient have a stroke diagnosis?: No Physical Exam Vital Signs: Vital Signs: Last Vital Signs Temp 98.0 F 02/01/21 09:14 Pulse 69 02/01/21 09:25 Resp 20 02/01/21 09:14 BP 119/77 02/01/21 09:25 Pulse Ox 97 02/01/21 09:14 Body Mass Index 27.2 General: AO X 3, no acute distress Resp: CTA bilateral CVS: S1,S2,RRR GI: +BS, NT, no distention Skin: No rash Neuro: motor grossly intact Psych: appropriate affect DS: Data Data Completed and Pending Labs on day of discharge: Laboratory Results - last 24 hr 01/31/21 01/31/21 01/31/21 11:03 11:03 11:03 WBC 9.3 RBC 4.14 L Hgb 13.2 Hct 39.2 MCV 94.7 MCH 31.9 MCHC 33.7 RDW 11.8 Plt Count 293 MPV 10.6 Immature Gran % (Auto) 0.2 Neut % (Auto) 60.7 Lymph % (Auto) 26.8 [place] % (Auto) 10.1 Eos % (Auto) 1.7 Baso % (Auto) 0.5 Lymph # (Auto) 2.5 [place] # (Auto) 0.9 Eos # (Auto) 0.2 Baso # (Auto) 0.1 Abs Immat Gran (auto) 0.02 Absolute Neuts (auto) 5.7 Absolute Nucleated RBC 0.000 Nucleated RBC % (auto) 0.0 PT INR APTT PTT (Heparin Protocol) D-Dimer Sodium 139 Potassium 5.3 H Chloride 106 Carbon Dioxide 24 Anion Gap 14 BUN 9 Creatinine 0.67 Estim Creat Clear Calc 74.4 Estimated GFR > 60 Random Glucose 88 Calcium 10.2 Magnesium 2.2 Total Bilirubin 0.8 Direct Bilirubin 0.2 AST 30 ALT 31 Alkaline Phosphatase 75 Troponin I High Sens 7.4 D Total Protein 7.1 Albumin 4.2 Triglycerides Cholesterol LDL Cholesterol, Calc HDL Cholesterol COVID-19 (PALLAVI) COVID-19 [place] 01/31/21 01/31/21 01/31/21 12:37 14:02 15:04 WBC RBC Hgb Hct MCV MCH MCHC RDW Plt Count MPV Immature Gran % (Auto) Neut % (Auto) Lymph % (Auto) [place] % (Auto) Eos % (Auto) Baso % (Auto) Lymph # (Auto) [place] # (Auto) Eos # (Auto) Baso # (Auto) Abs Immat Gran (auto) Absolute Neuts (auto) Absolute Nucleated RBC Nucleated RBC % (auto) PT 11.4 INR 1.0 APTT 33.2 PTT (Heparin Protocol) D-Dimer < 200 Sodium Potassium Chloride Carbon Dioxide Anion Gap BUN Creatinine Estim Creat Clear Calc Estimated GFR Random Glucose Calcium Magnesium Total Bilirubin Direct Bilirubin AST ALT Alkaline Phosphatase Troponin I High Sens 16.7 D 24.1 H* Total Protein Albumin Triglycerides Cholesterol LDL Cholesterol, Calc HDL Cholesterol COVID-19 (PALLAVI) COVID-19 [place] 01/31/21 01/31/21 02/01/21 15:04 22:35 04:28 WBC RBC Hgb Hct MCV MCH MCHC RDW Plt Count MPV Immature Gran % (Auto) Neut % (Auto) Lymph % (Auto) [place] % (Auto) Eos % (Auto) Baso % (Auto) Lymph # (Auto) [place] # (Auto) Eos # (Auto) Baso # (Auto) Abs Immat Gran (auto) Absolute Neuts (auto) Absolute Nucleated RBC Nucleated RBC % (auto) PT INR APTT PTT (Heparin Protocol) 86.3 H 65.3 D D-Dimer Sodium Potassium Chloride Carbon Dioxide Anion Gap BUN Creatinine Estim Creat Clear Calc Estimated GFR Random Glucose Calcium Magnesium Total Bilirubin Direct Bilirubin AST ALT Alkaline Phosphatase Troponin I High Sens Total Protein Albumin Triglycerides Cholesterol LDL Cholesterol, Calc HDL Cholesterol COVID-19 (PALLAVI) Negative COVID-19 Clin Com See Note 02/01/21 02/01/21 04:28 04:28 WBC 9.2 RBC 4.05 L Hgb 13.0 Hct 37.6 MCV 92.8 MCH 32.1 MCHC 34.6 RDW 11.7 Plt Count 302 MPV 10.3 Immature Gran % (Auto) Neut % (Auto) Lymph % (Auto) [place] % (Auto) Eos % (Auto) Baso % (Auto) Lymph # (Auto) [place] # (Auto) Eos # (Auto) Baso # (Auto) Abs Immat Gran (auto) Absolute Neuts (auto) Absolute Nucleated RBC 0.000 Nucleated RBC % (auto) 0.0 PT INR APTT PTT (Heparin Protocol) D-Dimer Sodium 143 Potassium 3.7 D Chloride 107 Carbon Dioxide 27 Anion Gap 13 BUN 10 Creatinine 0.67 Estim Creat Clear Calc 75.1 Estimated GFR > 60 Random Glucose 103 Calcium 9.5 D Magnesium Total Bilirubin Direct Bilirubin AST ALT Alkaline Phosphatase Troponin I High Sens Total Protein Albumin Triglycerides 94 Cholesterol 205 LDL Cholesterol, Calc 116 HDL Cholesterol 71 COVID-19 (PALLAVI) COVID-19 Clin Com Discharge Plan Discharge Anticipated Discharge Date/Time: 02/01/21 09:31 Patient Disposition: Xfer Acute Care Hospital Discharge Diagnosis: NSTEMI Referrals: Po,Gian Ann MD [Primary Care Provider] - 1 Week Discharge Medications: New atorvastatin 80 mg Tablet 80 mg PO BEDTIME Qty: 30 RF: 0 Continued lisinopril-hydrochlorothiazide 10-12.5 mg tablet 1 tab PO BID 30 Days Qty: 60 RF: 2 cholecalciferol (vitamin D3) 25 mcg (1,000 unit) capsule 25 mcg PO DAILY RF: 0 alprazolam 0.25 mg tablet 0.25 mg PO BEDTIME PRN (Reason: anxiety) 30 Days Qty: 10 RF: 0 Discontinued simvastatin 20 mg tablet 20 mg PO BEDTIME RF: 0 Discharge Orders: Discharge Order (Routine); Ordered 02/01/21 Ordered By: Gonzalo Kim Diet: advance to usual diet Activity on Discharge: As tolerated Stand Alone Forms: Patient Portal Discharge page Care Plan Goals: Work up and management of NSTEMI Health Concerns: NSTEMI Plan of Treatment: transfer to [facility] for cath, ASA, Heparin, Lipitor Assessment: As above
--- NOTE | 2021-02-01 10:11 | MHC.CM.PN ---
Female 59 DX NSTEMI. Patient is independent. She lives with her . She has had an ECHO. She will be an acute care transport to [facility] for Cardiac Cath via ALS. No HCP on file. Education re HCP provided. The Patient declined the offer of documenting a HCP today.
[2021-02-01 11:02] VITALS: BP 97/54; PULSE 66; RESP 18; TEMP 36.7; O2SAT 96
[2021-02-01 11:26] LABS: PTT Heparin Drip 59.5 SEC (53-77.9)
--- NOTE | 2021-02-01 14:00 | CA_ITS ---
Transthoracic Echocardiogram Patient (Last, First, Middle): Bettie Truong M Gender: Female Date of : 1960 Age: 60 Procedure Date: 02/01/2021 Procedure Type: Transthoracic Echocardiogram Location: [facility] [place] Height: 152.4 cm Weight: 63.05 kg BSA: 1.60 m2 Heart Rate: bpm BP: 113 / 56 mmHg Beekeeper Farmer: Referring MD: Gonzalo Kim MD Burn Out Scarfing Operator: Golden Lloyd MD Symptoms: ACS Study Quality: Fair ECG Rhythm: Sinus Conclusions: - 1. Normal LV systolic function with possible basal inferior and inferoseptal wall motion abnormality 2. Normal cardiac valvular Doppler 3. Normal RV systolic pressure 4. No pericardial effusion Findings Left Ventricle Normal left ventricular size, thickness, and systolic function. The visually estimated ejection fraction is between 55-60%. Spectral Doppler is indicative of a normal filling pattern. Wall Motion Rest Echo Findings The basal inferior and basal inferoseptal segments are hypokinetic. Right Ventricle Normal right ventricular cavity size and systolic function. Atria Both atria are normal in size. Aortic Valve The aortic valve structure and function is likely normal. There is no aortic valve stenosis. There is no aortic valve regurgitation. Mitral Valve Normal mitral valve structure and function. There is trace mitral valve regurgitation. There is no mitral valve stenosis. Pulmonic Valve The pulmonic valve was not well visualized. Tricuspid Valve Likely normal tricuspid valve structure and function. The right ventricular systolic pressure is normal. Great Vessels All visible segments of the aorta are normal in size. The pulmonary artery was not well visualized. Venous The inferior vena cava is normal in size and collapses greater than 50% with inspiration. Pericardium/Pleural There is no evidence of pericardial effusion. Prior Study Comparison Significant changes compared to prior study. Measurements 2D Linear Measurements IVSd: 0.95 0.6-0.9/0.6-1.0 cm LVIDd: 4.77 3.9-5.3/4.2-5.9 cm LVIDd Index: 2.98 2.4-3.2/2.2-3.1 cm/m2 LVIDs: 3.21 2.0-3.6 cm LVPWd: 0.79 0.7-1.1 cm Ao Root: 3.20 2.1-3.5 cm LA Diam: 3.00 2.7-3.8/3.0-4.0 cm LAIDs Index: 1.88 1.5-2.3 cm/m2 LV Mass: 173.66 67-162/88-224 g LV Mass Index: 108.54 43-95/49-115 g/m2 LVOT Diam: 2.00 3.0+(-)1.3 cm Mitral Valve MV Pk E: 0.75 MV PK A: 0.66 MV Decel Time: 264.00 E/A: 1.10 E'Lateral: 12.10 E'Medial: 6.53 E/E' Med: 11.50 E/E' Lat: 6.20 PHT: 77.00 MVA PHT: 2.86 Decel [place]: 2.84 Aortic Valve AoV Pk Josiah: 1.10 AoV Mn Josiah: 0.84 AoV VTI: 0.28 AoV Pk Grad: 5.00 Aov Mn Grad: 3.00 NAS Cont.VTI: 2.73 LVOT LVOT Pk Josiah: 1.00 LVOT Mn Josiah: 0.68 LVOT VTI: 0.24 LVOT Pk Grad: 4.00 LVOT Mn Grad: 2.00 LVOT Diam: 2.00 LVOT Area: 3.14 Diastolic Function MV Pk E: 0.75 MV Pk A: 0.66 E/A: 1.10 E'Medial: 6.53 E/E' Med: 11.50 E' Laterial: 12.10 E/E' Lat: 6.20 Tricuspid Valve TR Pk Josiah: 0.96 TR Pk Grad: 4.00 Great Vessels Aorta Ao Root-2D: 3.20 2.0-3.7 cm Ao Asc: 3.00 2.1-3.4 cm Updated in Other Vendor System with Status of Final Golden Lloyd MD electronically signed on 02/01/2021 8:56:08 AM with status of Final
== END 2021-02-01 14:56 | disposition short-term general hospital (02) | DRG 190 ==
LOC: HO.ED 16:32 → HO.EDOVER 16:49 → HO.IMC 17:46
PROVIDERS: Hospitalist; Nurse Practitioner Family; Admitting Provider Internal Medicine; Emergency Provider Emergency Medicine; PCP Internal Medicine; Visit Provider Internal Medicine
DX: I21.4 Non-ST elevation (NSTEMI) myocardial infarction (principal); E78.5 Hyperlipidemia, unspecified; Z20.822 Contact with and (suspected) exposure to COVID-19; K21.9 Gastro-esophageal reflux disease without esophagitis; I10 Essential (primary) hypertension; Z87.891 Personal history of nicotine dependence; Z79.899 Other long term (current) drug therapy
CPT/HCPCS: 36415; 70450; 71046; 71275; 80048; 80061; 80076; 83735; 84484; 85025; 85027; 85379; 85610; 85730; 87635; 93005; 93306; 96365; 96375; 99285; Q9967

== ENCOUNTER → 2021-02-08 09:39 | Outpatient (BNVA) | payer OTHER, SELFPAY | PROVIDERS: PCP Internal Medicine; Referring Provider Internal Medicine; Visit Provider Internal Medicine Cardiovascular Disease ==

== ENCOUNTER 2021-02-08 10:23 | Outpatient (REF) | payer OTHER, SELFPAY ==
--- NOTE | ~2021-02-08 | MR_ITS ---
EXAMINATION: MRI BRAIN WITHOUT CONTRAST CLINICAL INFORMATION: Anesthesia of the skin. COMPARISON: CT scan of the head 02/01/2021. TECHNIQUE: Multiplanar MR imaging of the brain was performed without contrast. FINDINGS: Scattered nonspecific foci of T2 FLAIR signal hyperintensity are visualized within the periventricular white matter. No acute territorial infarct. No pathological magnetic susceptibility artifact. Intracranial vascular flow voids are maintained. There is no intracranial mass effect or midline shift. No abnormal extra-axial collection. Lateral and third ventricles are normal. No hydrocephalus. Midline structures including the cervicomedullary junction are normal. No acute bone marrow signal changes. There is no mastoid or middle ear effusion. Mild paranasal sinus mucosal thickening within ethmoid air cells. Globes and orbits are symmetric. MR/MR head/brain wo con IMPRESSION: There are scattered nonspecific signal changes within the periventricular white matter. Otherwise unremarkable examination. No evidence of acute territorial infarct or hemorrhage.
== END 2021-02-08 10:24 | disposition home or self-care (01) ==
LOC: HO.MRI 10:23
PROVIDERS: Visit Provider Internal Medicine Cardiovascular Disease
DX: R20.0 Anesthesia of skin (principal)
CPT/HCPCS: 70551

== ENCOUNTER → 2021-03-29 12:55 | Outpatient (BNVA) | payer OTHER, SELFPAY | PROVIDERS: PCP Internal Medicine; Referring Provider Internal Medicine; Visit Provider Nurse Practitioner Family ==

== ENCOUNTER → 2021-04-13 08:21 | Outpatient (REF) | payer OTHER, SELFPAY ==
--- NOTE | 2021-04-13 08:26 | CA_ITS ---
Transthoracic Echocardiogram Patient (Last, First, Middle): Bettie Truong M Gender: Female Date of : 1960 Age: 60 Procedure Date: 04/13/2021 Procedure Type: Transthoracic Echocardiogram Location: [facility] Height: 152.4 cm Weight: 65.32 kg BSA: 1.62 m2 Heart Rate: bpm BP: 126 / 80 mmHg Locker Operator: DSG Referring MD: Golden Lloyd MD Symptoms: CARDIOMYOPATHY Study Quality: Fair ECG Rhythm: Sinus Conclusions: - The left ventricular systolic function is normal. The calculated ejection fraction is 62% by biplane method. - There is no evidence of regional wall motion abnormalities. Findings Left Ventricle Normal left ventricular cavity size. The left ventricular systolic function is normal. The calculated ejection fraction is 62% by biplane method. There is no evidence of regional wall motion abnormalities. Prior Study Comparison Changes noted compared to prior study dated: 02/01/2021. Wall motion abnormalities not seen. Measurements 2D Linear Measurements LVIDd: 4.30 3.9-5.3/4.2-5.9 cm LVIDd Index: 2.65 2.4-3.2/2.2-3.1 cm/m2 LVIDs: 2.92 2.0-3.6 cm 2D Systolic Function EF 4C: 64.00 >55% EF 2C: 56.60 >55% EF BiP: 61.80 >55% Mitral Valve MV Pk E: 0.71 MV PK A: 0.46 MV Decel Time: 195.00 E/A: 1.50 E'Lateral: 8.27 E'Medial: 7.07 E/E' Med: 10.00 E/E' Lat: 8.50 PHT: 57.00 MVA PHT: 3.86 Decel Lamb: 3.62 Diastolic Function MV Pk E: 0.71 MV Pk A: 0.46 E/A: 1.50 E'Medial: 7.07 E/E' Med: 10.00 E' Laterial: 8.27 E/E' Lat: 8.50 Right Ventricle TAPSE (mm): 2.40 Updated in Other Vendor System with Status of Final Gallo Wetzel MD electronically signed on 04/15/2021 11:53:27 AM with status of Final
== END ==
LOC: HO.CARD 08:21
PROVIDERS: Visit Provider Internal Medicine Cardiovascular Disease
DX: I42.9 Cardiomyopathy, unspecified (principal); Z95.5 Presence of coronary angioplasty implant and graft
CPT/HCPCS: 93308

== ENCOUNTER 2021-04-26 06:36 | Outpatient (REF) | payer OTHER, SELFPAY ==
[2021-04-26 08:01] LABS: Cholesterol 171 mg/dL; HDL Cholesterol 78 mg/dL; LDL Cholesterol Calculated 77 mg/dl; Triglycerides 83 mg/dL
== END 2021-04-26 06:37 | disposition home or self-care (01) ==
LOC: HO.LAB 06:36
PROVIDERS: PCP Internal Medicine; Visit Provider Internal Medicine Cardiovascular Disease
DX: I25.10 Atherosclerotic heart disease of native coronary artery without angina pectoris (principal)
CPT/HCPCS: 36415; 80061

== ENCOUNTER 2021-05-03 08:09 | Outpatient (REF) | payer OTHER, SELFPAY ==
--- NOTE | ~2021-05-03 | MM_ITS ---
EXAMINATION: MM SCREENING DIGITAL BREAST TOMOSYNTHESIS, BILATERAL CLINICAL INFORMATION: Screening. Asymptomatic. The lifetime risk of breast cancer based on the Tyrer-Cuzick Model is 6%. COMPARISON: Mammography: 04/13/2020, 04/09/2019, 04/03/2018, 02/23/2016 TECHNIQUE: Digital breast tomosynthesis is performed in both the craniocaudal and mediolateral oblique views along with computer-aided detection (CAD). Synthesized 2D images are generated from the tomosynthesis. FINDINGS: There are scattered areas of fibroglandular density (ACR BI-RADS breast composition Category b). There are no significant masses, abnormal calcifications, or other abnormalities. There are intramammary nodes again seen mid bilateral outer breasts. Stable asymmetric density posterior medial right breast near film margin likely sternalis muscle is similar to prior exams. No developing density. MM/MM tomosynthesis screening BI IMPRESSION: There are no significant changes from prior exams. ASSESSMENT: BI-RADS 2: Benign RECOMMENDATION: Routine annual mammography screening. This patient's information was entered into a reminder system with a target due date for their next mammogram.
== END 2021-05-03 08:10 | disposition home or self-care (01) ==
LOC: HO.MAMMO 08:09
PROVIDERS: Visit Provider Internal Medicine
DX: Z12.31 Encounter for screening mammogram for malignant neoplasm of breast (principal)
CPT/HCPCS: 77063; 77067

== ENCOUNTER 2021-05-19 15:48 | Emergency (ER) | payer OTHER, SELFPAY ==
--- NOTE | ~2021-05-19 | XR_ITS ---
EXAMINATION: XR CHEST CLINICAL INFORMATION: Chest pain COMPARISON: Chest radiographs 01/31/2021, 11/29/2020 TECHNIQUE: 2 views of the chest were obtained. FINDINGS: No pneumothorax. Lungs clear. No airspace opacity or effusion. Heart size normal. Vascularity normal. The hilar and mediastinal contours and visualized bony structures are unremarkable. XR/XR chest 2V IMPRESSION: Unremarkable examination.
[2021-05-19 15:51] VITALS: BP 179/86; PULSE 68; RESP 18; TEMP 36.4; O2SAT 100; BMI 28.3
--- NOTE | 2021-05-19 15:54 | ECG_ITS ---
Test Reason : CHEST PAIN Blood Pressure : / mmHG Vent. Rate : 062 BPM Atrial Rate : 062 BPM P-R Int : 166 ms QRS Dur : 086 ms QT Int : 440 ms P-R-T Axes : 036 014 031 degrees QTc Int : 446 ms Normal sinus rhythm Normal ECG When compared with ECG of 31-JAN-2021 14:53, T wave inversion no longer evident in Anterior leads Referred By: Generic ED Physician Electronically Signed By:FIONA WILLIS MD
[2021-05-19 17:13] LABS: MANUAL DIFF FLAG NO
[2021-05-19 17:15] LABS: Basophils Percent Auto 0.4 % (0-2); Eosinophils Absolute Auto 0.2 X10*3/uL (0.0-0.4); Eosinophils Percent Auto 1.8 % (0-4); Hematocrit 39.2 % (37.0-47.0); Hemoglobin 13.3 g/dl (12.0-16.0); Imm Gran Abs Auto 0.02 X10*3/uL (0.00-0.03); Imm Gran Pct Auto 0.2 % (0.0-0.4); Lymphocytes Absolute Auto 2.2 X10*3/uL (1.2-4.9); Mean Corpuscular HGB Conc 33.9 g/dl (31.0-35.0); Mean Corpuscular Hemoglobin 31.8 pg (27.0-33.0); Mean Corpuscular Volume 93.8 fL (80.0-98.0); Mean Platelet Volume 10.3 fL (9.4-12.3); Monocytes Absolute Auto 0.9 X10*3/uL (0.1-1.2); Monocytes Percent Auto 8.9 % (2-11); Neutrophils Absolute Auto 6.3 x10*3/uL (2.0-8.3); Neutrophils Percent Auto 65.7 % (45-73); Platelet Count 264 X10*3/uL (160-400); Red Blood Count 4.18 X10*6/uL (4.20-5.50); Red Cell Distribution Width 11.9 % (11.0-16.0); White Blood Count 9.5 X10*3/uL (4.8-10.8)
[2021-05-19 17:35] LABS: Troponin-I High Sensitivity < 3.5 ng/L (<3.5-17.0)
[2021-05-19 17:39] LABS: COVID-19 Test Negative (Negative)
--- NOTE | 2021-05-19 17:54 | ED_ITS ---
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 mid chest pain radiating to the right side of the chest lasted for about 10 minutes and then again around 14:30 notice similar pain which lasted for more than half an hour by the time patient came here chest pain improved no chest pain at this time patient had a lab work done while waiting in the waiting area high sensitive troponin is nega EKG without any acute ischemic changes Related Data Home Medications Medication Instructions Recorded Confirmed cholecalciferol (vitamin D3) 25 25 mcg PO DAILY 02/20/20 03/29/21 mcg (1,000 unit) capsule Previous Rx's Medication Instructions Recorded alprazolam 0.25 mg tablet 0.25 mg PO BEDTIME PRN 30 Days 12/13/20 #10 tab amlodipine 2.5 mg tablet 2.5 mg PO DAILY 90 Days #90 tab 02/21/21 atorvastatin 80 mg tablet 80 mg PO BEDTIME 90 Days #90 tab 02/21/21 metoprolol succinate 25 mg 25 mg PO DAILY 90 Days #90 tab 02/21/21 tablet,extended release 24 hr aspirin 81 mg tablet,delayed 81 mg PO DAILY #90 tab 03/29/21 release ticagrelor 90 mg tablet (Brilinta) 90 mg PO BID 90 Days #180 tab 03/29/21 ezetimibe 10 mg tablet (Zetia) 10 mg PO DAILY #90 tab 04/26/21 Allergies Allergy/AdvReac Type Severity Reaction Status Date / Time No Known Allergies Allergy Verified 05/19/21 15:51 Review of Systems Verdana 4l Review of Systems: Yes all other systems are reviewed and Verdana 4d are negative [facility] Past Medical History Medical History Acute coronary syndrome Alcohol abuse CAD (coronary artery disease) Cervical dysplasia History of uterine fibroid Hypercholesterolemia Overweight (BMI 25.0-29.9) Tubular adenoma of colon Vitamin D deficiency Surgical History History of tubal ligation Hx of colonoscopy Stented coronary artery Family History Family History Father Hypertension Mother Hypertension Stroke CVD (cardiovascular disease) Sister Stroke Brother Substance abuse Bipolar 1 disorder Mental health disorder Social History Social History Household Members: Family Housing: House Do you presently have visiting nurse or other home services: No Alcohol intake: never Patient Tobacco Use Status: Former Tobacco user Quit Date: 2 weeks ago Tobacco use type: Cigarette Cigarettes Per Day: 3 Years Smoked: 25 e-Cigarette/Vaping Use: Never Used Second Hand Smoke Exposure: No Advance Directives: No Advance Directives Information Provided: No service: No Current occupational status: employed 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 Oriented X3. No acute distress. ENT: Pharynx normal. Oral Mucosa moist Neck: Normal inspection. Neck supple. CVS: Normal heart rate and rhythm. Pulses normal. Respiratory: No respiratory distress. Equal air entry bilateral, no wheezing/rales/rhonchi Abdomen: Soft and nontender. Bowel sounds are present, no mass palpable, no CVA tenderness Skin: Skin warm and dry. Normal skin color. Normal skin turgor. Extremities: No lower extremity edema. No calf tenderness Neuro: Oriented X 3. MDM - Chest Pain MDM Narrative Medical decision making narrative: patient right-sided chest pain with history of anxiety and recent cardiac stent placement already on Brilinta and aspirin pain started in the morning 09:30, EKG normal with no ischemic changes 2 sets of high sensitive troponin also negative patient does have history of anxiety and feels like she might have anxiety. Patient advised to follow with transit worker for further evaluation Lab Data Attestation: I reviewed the patient's lab results. Result diagrams: 05/19/21 17:07 05/19/21 19:15 Labs: Lab Results 05/19/21 05/19/21 05/19/21 Range/Units 17:07 17:07 17:07 WBC 9.5 (4.8-10.8) X10*3/uL RBC 4.18 L (4.20-5.50) X10*6/uL Hgb 13.3 (12.0-16.0) g/dl Hct 39.2 (37.0-47.0) % MCV 93.8 (80.0-98.0) fL MCH 31.8 (27.0-33.0) pg MCHC 33.9 (31.0-35.0) g/dl RDW 11.9 (11.0-16.0) % Plt Count 264 (160-400) X10*3/uL MPV 10.3 (9.4-12.3) fL Immature Gran % (Auto) 0.2 (0.0-0.4) % Neut % (Auto) 65.7 (45-73) % Lymph % (Auto) 23.0 (20-40) % [place] % (Auto) 8.9 (2-11) % Eos % (Auto) 1.8 (0-4) % Baso % (Auto) 0.4 (0-2) % Lymph # (Auto) 2.2 (1.2-4.9) X10*3/uL [place] # (Auto) 0.9 (0.1-1.2) X10*3/uL Eos # (Auto) 0.2 (0.0-0.4) X10*3/uL Baso # (Auto) 0.0 (0.0-0.2) X10*3/uL Abs Immat Gran (auto) 0.02 (0.00-0.03) X10*3/uL Absolute Neuts (auto) 6.3 (2.0-8.3) x10*3/uL Absolute Nucleated RBC 0.000 (0.0-0.012) X10*3/uL Nucleated RBC % (auto) 0.0 (0.0-0.2) /100WBC Sodium (135-145) mmol/L Potassium (3.3-5.1) mmol/L Chloride (96-108) mmol/L Carbon Dioxide (22-29) mmol/L Anion Gap (12-20) BUN (9-16) mg/dL Creatinine (0.5-1.4) mg/dL Estim Creat Clear Calc Estimated GFR Random Glucose (60-115) mg/dL Calcium (8.4-10.2) mg/dL Total Bilirubin (0.0-1.0) mg/dL AST (5-31) U/L ALT (0-31) U/L Alkaline Phosphatase (39-117) U/L Troponin I High Sens < 3.5 (<3.5-17.0) ng/L Total Protein (6.5-8.0) g/dL Albumin (3.5-5.0) g/dL COVID-19 (PALLAVI) Negative (Negative) COVID-19 Clin Com See Note 05/19/21 05/19/21 Range/Units 19:15 19:15 WBC (4.8-10.8) X10*3/uL RBC (4.20-5.50) X10*6/uL Hgb (12.0-16.0) g/dl Hct (37.0-47.0) % MCV (80.0-98.0) fL MCH (27.0-33.0) pg MCHC (31.0-35.0) g/dl RDW (11.0-16.0) % Plt Count (160-400) X10*3/uL MPV (9.4-12.3) fL Immature Gran % (Auto) (0.0-0.4) % Neut % (Auto) (45-73) % Lymph % (Auto) (20-40) % [place] % (Auto) (2-11) % Eos % (Auto) (0-4) % Baso % (Auto) (0-2) % Lymph # (Auto) (1.2-4.9) X10*3/uL [place] # (Auto) (0.1-1.2) X10*3/uL Eos # (Auto) (0.0-0.4) X10*3/uL Baso # (Auto) (0.0-0.2) X10*3/uL Abs Immat Gran (auto) (0.00-0.03) X10*3/uL Absolute Neuts (auto) (2.0-8.3) x10*3/uL Absolute Nucleated RBC (0.0-0.012) X10*3/uL Nucleated RBC % (auto) (0.0-0.2) /100WBC Sodium 139 (135-145) mmol/L Potassium 3.9 (3.3-5.1) mmol/L Chloride 108 (96-108) mmol/L Carbon Dioxide 23 (22-29) mmol/L Anion Gap 12 (12-20) BUN 8 L (9-16) mg/dL Creatinine 0.67 (0.5-1.4) mg/dL Estim Creat Clear Calc 76.5 Estimated GFR > 60 Random Glucose 160 H (60-115) mg/dL Calcium 9.6 (8.4-10.2) mg/dL Total Bilirubin 0.5 (0.0-1.0) mg/dL AST 30 (5-31) U/L ALT 33 H (0-31) U/L Alkaline Phosphatase 88 (39-117) U/L Troponin I High Sens < 3.5 (<3.5-17.0) ng/L Total Protein 7.6 (6.5-8.0) g/dL Albumin 4.3 (3.5-5.0) g/dL COVID-19 (PALLAVI) (Negative) COVID-19 Clin Com ECG Data ECG #1: Interpretation: normal sinus rhythm heart rate 62 beats per minute normal intervals normal axis no acute ischemic changes impression normal EKG Discharge Plan Discharge Clinical Impression: Chest pain Patient Disposition: Home, Self-Care Instructions: Chest Pain (DC) Additional Instructions: continue Brilinta and aspirin at this time there is no signs of heart damage /heart attack report to the ER if chest pain does get worse take your anxiety medication as prescribed call your transit worker tomorrow for further work Prescriptions: No Action ezetimibe [Zetia] 10 mg tablet 10 mg PO DAILY Qty: 90 0RF cholecalciferol (vitamin D3) 25 mcg (1,000 unit) capsule 25 mcg PO DAILY 0RF amlodipine 2.5 mg tablet 2.5 mg PO DAILY 90 Days Qty: 90 2RF Protocol: Hold for SBP< HOLD for SBP < : 90 atorvastatin 80 mg tablet 80 mg PO BEDTIME 90 Days Qty: 90 2RF metoprolol succinate 25 mg tablet extended release 24 hr 25 mg PO DAILY 90 Days Qty: 90 2RF alprazolam 0.25 mg tablet 0.25 mg PO BEDTIME PRN (Reason: anxiety) 30 Days Qty: 10 0RF aspirin 81 mg tablet,delayed release (DR/EC) 81 mg PO DAILY Qty: 90 3RF Brilinta 90 mg tablet 90 mg PO BID 90 Days Qty: 180 3RF
[2021-05-19 17:58] VITALS: BP 133/67; PULSE 59; RESP 16; O2SAT 100
[2021-05-19 18:06] VITALS: TEMP 36.8
[2021-05-19 18:35] VITALS: BP 113/62; PULSE 64
[2021-05-19] MEDS: Nitroglycerin 2 % Oint 1 GM Packet 0.5 INCH TRANSDERMA (18:35)
[2021-05-19 19:37] LABS: Alanine Aminotransferase 33 U/L (0-31); Albumin Level 4.3 g/dL (3.5-5.0); Alkaline Phosphatase 88 U/L (39-117); Anion Gap 12 (12-20); Aspartate Amino Transferase 30 U/L (5-31); Bilirubin Total 0.5 mg/dL (0.0-1.0); Blood Urea Nitrogen 8 mg/dL (9-16); Calcium 9.6 mg/dL (8.4-10.2); Carbon Dioxide 23 mmol/L (22-29); Chloride 108 mmol/L (96-108); Creatinine Clr Calc Pharmacy 76.5; Estimated Glomerular Filt Rate > 60; Glucose Random 160 mg/dL (60-115); Potassium 3.9 mmol/L (3.3-5.1); Sodium 139 mmol/L (135-145); Total Protein 7.6 g/dL (6.5-8.0)
[2021-05-19 19:41] LABS: Troponin-I High Sensitivity < 3.5 ng/L (<3.5-17.0)
[2021-05-19 20:02] VITALS: BP 149/73; PULSE 57; RESP 16; TEMP 36.7; O2SAT 100
== END 2021-05-19 20:14 | disposition home or self-care (01) ==
PROVIDERS: Emergency Provider Internal Medicine; PCP Internal Medicine
DX: R07.9 Chest pain, unspecified (principal); Z20.822 Contact with and (suspected) exposure to COVID-19; I10 Essential (primary) hypertension; E78.00 Pure hypercholesterolemia, unspecified; Z79.02 Long term (current) use of antithrombotics/antiplatelets
CPT/HCPCS: 36415; 71046; 80053; 84484; 85025; 87635; 93005; 99284

== ENCOUNTER → 2021-06-09 14:10 | Outpatient (BNVA) | payer OTHER, SELFPAY | PROVIDERS: PCP Internal Medicine; Referring Provider Internal Medicine; Visit Provider Nurse Practitioner Family ==

== ENCOUNTER 2021-09-03 08:17 | Outpatient (REF) | payer OTHER, SELFPAY ==
[2021-09-03 08:54] LABS: Estimated Average Glucose 111 mg/dL; Hemoglobin A1c % 5.5 %
[2021-09-03 09:36] LABS: Alanine Aminotransferase 33 U/L (0-31); Alkaline Phosphatase 74 U/L (39-117); Anion Gap 11 (12-20); Aspartate Amino Transferase 29 U/L (5-31); Bilirubin Total 0.5 mg/dL (0.0-1.0); Blood Urea Nitrogen 12 mg/dL (9-16); Calcium 9.3 mg/dL (8.4-10.2); Carbon Dioxide 24 mmol/L (22-29); Chloride 109 mmol/L (96-108); Cholesterol 141 mg/dL; Estimated Glomerular Filt Rate > 60; Glucose Random 100 mg/dL (60-115); HDL Cholesterol 65 mg/dL; LDL Cholesterol Calculated 64 mg/dl; Potassium 4.2 mmol/L (3.3-5.1); Sodium 140 mmol/L (135-145); Total Protein 6.5 g/dL (6.5-8.0); Triglycerides 62 mg/dL
== END 2021-09-03 08:18 | disposition home or self-care (01) ==
LOC: HO.LAB 08:17
PROVIDERS: PCP Internal Medicine; Visit Provider Internal Medicine
DX: E78.00 Pure hypercholesterolemia, unspecified (principal)
CPT/HCPCS: 36415; 80053; 80061; 83036

== ENCOUNTER → 2021-09-12 08:44 | Outpatient (BNVA) | payer OTHER, SELFPAY | PROVIDERS: PCP Internal Medicine; Referring Provider Internal Medicine; Visit Provider Internal Medicine Cardiovascular Disease | DX: Z13.89 Encounter for screening for other disorder (principal) ==

== ENCOUNTER 2021-09-13 09:05 | Outpatient (REF) | payer OTHER, SELFPAY ==
--- NOTE | ~2021-09-13 | XR_ITS ---
EXAMINATION: XR SHOULDER, LEFT CLINICAL INFORMATION: Chronic left shoulder pain COMPARISON: Chest radiograph 05/19/2021 TECHNIQUE: Left shoulder is imaged in 4 views. FINDINGS: No fracture, dislocation, destructive process. The glenohumeral joint appears normal. The acromioclavicular alignment is normal. There are no visible rotator cuff calcifications. Left lung apex is clear and there is no infiltrate or pleural reaction. Coronary stent is seen overlying the cardiopericardial silhouette. XR/XR shoulder LT min 2V IMPRESSION: Unremarkable left shoulder.
== END 2021-09-13 09:06 | disposition home or self-care (01) ==
LOC: HO.XRAY 09:05
PROVIDERS: PCP Internal Medicine; Visit Provider Internal Medicine
DX: M25.512 Pain in left shoulder (principal)
CPT/HCPCS: 73030

== ENCOUNTER → 2021-09-15 09:11 | Outpatient (BNVA) | payer OTHER, SELFPAY | PROVIDERS: PCP Internal Medicine; Referring Provider Internal Medicine; Visit Provider Physician Assistant | DX: D12.6 Benign neoplasm of colon, unspecified (principal) ==

== ENCOUNTER 2021-12-19 23:19 | Emergency (ER) | payer OTHER, SELFPAY ==
[2021-12-19 23:42] VITALS: BP 164/81; PULSE 97; RESP 18; TEMP 38.2; O2SAT 98; BMI 27.3
[2021-12-19 23:44] LABS: MANUAL DIFF FLAG NO
[2021-12-19 23:48] LABS: Basophils Absolute Auto 0.1 X10*3/uL (0.0-0.2); Basophils Percent Auto 0.6 % (0-2); Eosinophils Absolute Auto 0.2 X10*3/uL (0.0-0.4); Hematocrit 36.3 % (37.0-47.0); Hemoglobin 12.9 g/dl (12.0-16.0); Imm Gran Abs Auto 0.03 X10*3/uL (0.00-0.03); Imm Gran Pct Auto 0.3 % (0.0-0.4); Lymphocytes Absolute Auto 0.6 X10*3/uL (1.2-4.9); Lymphocytes Percent Auto 6.5 % (20-40); Mean Corpuscular HGB Conc 35.5 g/dl (31.0-35.0); Mean Corpuscular Hemoglobin 32.1 pg (27.0-33.0); Mean Corpuscular Volume 90.3 fL (80.0-98.0); Mean Platelet Volume 9.9 fL (9.4-12.3); Neutrophils Absolute Auto 6.9 x10*3/uL (2.0-8.3); Neutrophils Percent Auto 79.6 % (45-73); Platelet Count 209 X10*3/uL (160-400); Red Blood Count 4.02 X10*6/uL (4.20-5.50); Red Cell Distribution Width 12.4 % (11.0-16.0); White Blood Count 8.7 X10*3/uL (4.8-10.8)
[2021-12-19 23:52] LABS: COVID-19 Test Positive (Negative)
[2021-12-19 23:53] LABS: Appearance Urine Cloudy; Color Urine Yellow; Glucose Urine UA Negative (Negative); Leukocyte Esterase Urine Negative (Negative); Nitrite Urine Negative (Negative); PH 5.5 (5.0-8.0); Specific Gravity - Urine <= 1.005 (1.005-1.025); Urine Blood Large (3+) (Negative); Urine Ketones Negative (Negative); Urine Protein Negative (Neg-Trace)
[2021-12-19 23:56] LABS: Bacteria Urine None Seen (None Seen); Hyaline Casts Urine 0-2 /LPF (0-2); Squamous Epithelial Cell Urine 0-2 /HPF (0-2); WBC Urine 0-5 /HPF (0-5)
[2021-12-20 00:03] LABS: Anion Gap 17 (12-20); Blood Urea Nitrogen 9 mg/dL (9-16); Calcium 9.2 mg/dL (8.4-10.2); Carbon Dioxide 19 mmol/L (22-29); Chloride 104 mmol/L (96-108); Creatinine Clr Calc Pharmacy 72.1; Estimated Glomerular Filt Rate > 60; Glucose Random 105 mg/dL (60-115); Potassium 3.8 mmol/L (3.3-5.1); Sodium 136 mmol/L (135-145)
--- NOTE | 2021-12-20 00:40 | ED.GENADULT ---
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 today with fever and chills body aches already got vaccinated against COVID has notices a booster dose yet no shortness of breath no cough with low-grade fever no other family member sick Related Data Home Medications Medication Instructions Recorded Confirmed cholecalciferol (vitamin D3) 25 25 mcg PO DAILY 02/20/20 09/15/21 mcg (1,000 unit) capsule Previous Rx's Medication Instructions Recorded amlodipine 2.5 mg tablet 2.5 mg PO DAILY 90 days #90 tabs 02/21/21 aspirin 81 mg tablet,delayed 81 mg PO DAILY #90 tabs 03/29/21 release blood pressure monitor (Blood #1 ea 05/30/21 Pressure Kit) rosuvastatin 40 mg tablet 40 mg PO DAILY 90 days #90 tabs 05/30/21 ezetimibe 10 mg tablet (Zetia) 10 mg PO DAILY #90 tabs 07/25/21 famotidine 20 mg tablet (Pepcid) 20 mg PO BEDTIME #90 tabs 07/25/21 clopidogrel 75 mg tablet 75 mg PO DAILY 90 days #90 tabs 12/09/21 metoprolol succinate 25 mg 25 mg PO DAILY 90 days #90 tabs 12/09/21 tablet,extended release 24 hr tramadol 50 mg tablet 50 mg PO Q6H PRN pain #20 tabs 12/20/21 Allergies Allergy/AdvReac Type Severity Reaction Status Date / Time No Known Allergies Allergy Verified 11/08/21 13:17 Review of Systems Review of Systems: Yes all other systems are reviewed and are negative [facility] Past Medical History Medical History Acute coronary syndrome Alcohol abuse CAD (coronary artery disease) Cervical dysplasia History of uterine fibroid Hypercholesterolemia Overweight (BMI 25.0-29.9) Tubular adenoma of colon Vitamin D deficiency Surgical History History of tubal ligation Hx of colonoscopy Stented coronary artery Family History Family History Father Hypertension Mother Hypertension Stroke CVD (cardiovascular disease) Sister Stroke Brother Substance abuse Bipolar 1 disorder Mental health disorder Social History Social History Household Members: Family Housing: House Do you presently have visiting nurse or other home services: No Alcohol intake: never Patient Tobacco Use Status: Former Tobacco user Quit Date: 2 weeks ago Tobacco use type: Cigarette Cigarettes Per Day: 3 Years Smoked: 25 e-Cigarette/Vaping Use: Never Used Second Hand Smoke Exposure: No Advance Directives: No Advance Directives Information Provided: No service: No Current occupational status: employed 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 Oriented X3. No acute distress. Eyes no pallor or icterus ENT: Pharynx normal. Oral Mucosa moist Neck: Normal inspection. Neck supple. CVS: Normal heart rate and rhythm. Pulses normal. Respiratory: No respiratory distress. Equal air entry bilateral, no wheezing/rales/rhonchi Abdomen: Soft and nontender. Bowel sounds are present, no mass palpable, no CVA tenderness Skin: Skin warm and dry. Normal skin color. Normal skin turgor. Extremities: No lower extremity edema. No calf tenderness Neuro: Oriented X 3. No motor deficit. No sensory deficit.No cerebellar signs , cranial nerves II-XII intact Medical Decision Making Lab Data Result diagrams: 12/19/21 23:37 12/19/21 23:37 Labs: Lab Results 12/19/21 12/19/21 12/19/21 Range/Units 23:37 23:37 23:37 WBC 8.7 (4.8-10.8) X10*3/uL RBC 4.02 L (4.20-5.50) X10*6/uL Hgb 12.9 (12.0-16.0) g/dl Hct 36.3 L (37.0-47.0) % MCV 90.3 (80.0-98.0) fL MCH 32.1 (27.0-33.0) pg MCHC 35.5 H (31.0-35.0) g/dl RDW 12.4 (11.0-16.0) % Plt Count 209 (160-400) X10*3/uL MPV 9.9 (9.4-12.3) fL Immature Gran % (Auto) 0.3 (0.0-0.4) % Neut % (Auto) 79.6 H (45-73) % Lymph % (Auto) 6.5 L (20-40) % [place] % (Auto) 11.0 (2-11) % Eos % (Auto) 2.0 (0-4) % Baso % (Auto) 0.6 (0-2) % Lymph # (Auto) 0.6 L (1.2-4.9) X10*3/uL [place] # (Auto) 1.0 (0.1-1.2) X10*3/uL Eos # (Auto) 0.2 (0.0-0.4) X10*3/uL Baso # (Auto) 0.1 (0.0-0.2) X10*3/uL Abs Immat Gran (auto) 0.03 (0.00-0.03) X10*3/uL Absolute Neuts (auto) 6.9 (2.0-8.3) x10*3/uL Absolute Nucleated RBC 0.000 (0.0-0.012) X10*3/uL Nucleated RBC % (auto) 0.0 (0.0-0.2) /100WBC Sodium 136 (135-145) mmol/L Potassium 3.8 (3.3-5.1) mmol/L Chloride 104 (96-108) mmol/L Carbon Dioxide 19 L (22-29) mmol/L Anion Gap 17 (12-20) BUN 9 (9-16) mg/dL Creatinine 0.69 (0.5-1.4) mg/dL Estim Creat Clear Calc 72.1 Estimated GFR > 60 Random Glucose 105 (60-115) mg/dL Calcium 9.2 (8.4-10.2) mg/dL Urine Color Urine Appearance Urine pH (5.0-8.0) Ur Specific [place] (1.005-1.025) Urine Protein (Neg-Trace) mg/dL Urine Glucose (UA) (Negative) mg/dL Urine Ketones (Negative) mg/dL Urine Blood (Negative) Urine Nitrite (Negative) Ur Leukocyte Esterase (Negative) Urine RBC (0-2) /HPF Urine WBC (0-5) /HPF Ur Squamous Epith Cells (0-2) /HPF Urine Bacteria (None Seen) Hyaline Casts (0-2) /LPF COVID-19 (PALLAVI) Positive A (Negative) COVID-19 Clin Com See Note 12/19/21 Range/Units 23:48 WBC (4.8-10.8) X10*3/uL RBC (4.20-5.50) X10*6/uL Hgb (12.0-16.0) g/dl Hct (37.0-47.0) % MCV (80.0-98.0) fL MCH (27.0-33.0) pg MCHC (31.0-35.0) g/dl RDW (11.0-16.0) % Plt Count (160-400) X10*3/uL MPV (9.4-12.3) fL Immature Gran % (Auto) (0.0-0.4) % Neut % (Auto) (45-73) % Lymph % (Auto) (20-40) % [place] % (Auto) (2-11) % Eos % (Auto) (0-4) % Baso % (Auto) (0-2) % Lymph # (Auto) (1.2-4.9) X10*3/uL [place] # (Auto) (0.1-1.2) X10*3/uL Eos # (Auto) (0.0-0.4) X10*3/uL Baso # (Auto) (0.0-0.2) X10*3/uL Abs Immat Gran (auto) (0.00-0.03) X10*3/uL Absolute Neuts (auto) (2.0-8.3) x10*3/uL Absolute Nucleated RBC (0.0-0.012) X10*3/uL Nucleated RBC % (auto) (0.0-0.2) /100WBC Sodium (135-145) mmol/L Potassium (3.3-5.1) mmol/L Chloride (96-108) mmol/L Carbon Dioxide (22-29) mmol/L Anion Gap (12-20) BUN (9-16) mg/dL Creatinine (0.5-1.4) mg/dL Estim Creat Clear Calc Estimated GFR Random Glucose (60-115) mg/dL Calcium (8.4-10.2) mg/dL Urine Color Yellow Urine Appearance Cloudy Urine pH 5.5 (5.0-8.0) Ur Specific [place] <= 1.005 (1.005-1.025) Urine Protein Negative (Neg-Trace) mg/dL Urine Glucose (UA) Negative (Negative) mg/dL Urine Ketones Negative (Negative) mg/dL Urine Blood Large (3+) H (Negative) Urine Nitrite Negative (Negative) Ur Leukocyte Esterase Negative (Negative) Urine RBC 11-20 H (0-2) /HPF Urine WBC 0-5 (0-5) /HPF Ur Squamous Epith Cells 0-2 (0-2) /HPF Urine Bacteria None Seen (None Seen) Hyaline Casts 0-2 (0-2) /LPF COVID-19 (PALLAVI) (Negative) COVID-19 Clin Com Discharge Plan Discharge Clinical Impression: COVID-19 Patient Disposition: Home, Self-Care Instructions: COVID-19 (Coronavirus Disease 2019) (ED) Additional Instructions: Keep social distance Keep hydrated Tramadol for severe pain Tylenol/Motrin for fever Report to the ER if increased shortness of breath Prescriptions: New tramadol 50 mg tablet 50 mg PO Q6H PRN (Reason: pain) Qty: 20 0RF No Action ezetimibe [Zetia] 10 mg tablet 10 mg PO DAILY Qty: 90 3RF famotidine [Pepcid] 20 mg tablet 20 mg PO BEDTIME Qty: 90 1RF clopidogrel 75 mg tablet 75 mg PO DAILY 90 Days Qty: 90 1RF Rx Instructions: On Day 1 - take 4 tablets ( 300mg) - then on Day 2 start one Tablet ( 75mg) daily metoprolol succinate 25 mg tablet extended release 24 hr 25 mg PO DAILY 90 Days Qty: 90 2RF cholecalciferol (vitamin D3) 25 mcg (1,000 unit) capsule 25 mcg PO DAILY amlodipine 2.5 mg tablet 2.5 mg PO DAILY 90 Days Qty: 90 2RF Protocol: Hold for SBP< HOLD for SBP < : 90 rosuvastatin 40 mg tablet 40 mg PO DAILY 90 Days Qty: 90 2RF (DME) blood pressure monitor [Blood Pressure Kit] Kit See Rx Instructions .ROUTE .MEDSUPPLY Qty: 1 0RF Rx Instructions: As directed aspirin 81 mg tablet,delayed release (DR/EC) 81 mg PO DAILY Qty: 90 3RF Interventions: ED Discharge Assessment Last Done: 12/20/21 01:03
[2021-12-20] MEDS: oxyCODONE HCl Immed Release 5 MG TABLET 10 MG PO (01:29)
[2021-12-20] MEDS: Ibuprofen 600 MG TABLET PO (01:29)
== END 2021-12-20 01:37 | disposition home or self-care (01) ==
PROVIDERS: Emergency Provider Internal Medicine; PCP Internal Medicine
DX: U07.1 COVID-19 (principal)
CPT/HCPCS: 36415; 80048; 81001; 85025; 87635; 99283

== ENCOUNTER 2022-02-24 07:13 | Outpatient (REF) | payer OTHER, SELFPAY ==
[2022-02-24 07:28] LABS: MANUAL DIFF FLAG NO
[2022-02-24 07:36] LABS: Basophils Absolute Auto 0.1 X10*3/uL (0.0-0.2); Basophils Percent Auto 0.6 % (0-2); Eosinophils Absolute Auto 0.2 X10*3/uL (0.0-0.4); Eosinophils Percent Auto 2.2 % (0-4); Hematocrit 43.6 % (37.0-47.0); Hemoglobin 14.5 g/dl (12.0-16.0); Imm Gran Abs Auto 0.03 X10*3/uL (0.00-0.03); Imm Gran Pct Auto 0.3 % (0.0-0.4); Lymphocytes Absolute Auto 2.9 X10*3/uL (1.2-4.9); Lymphocytes Percent Auto 28.4 % (20-40); Mean Corpuscular HGB Conc 33.3 g/dl (31.0-35.0); Mean Corpuscular Hemoglobin 31.6 pg (27.0-33.0); Mean Platelet Volume 10.2 fL (9.4-12.3); Monocytes Percent Auto 9.6 % (2-11); Neutrophils Percent Auto 58.9 % (45-73); Platelet Count 250 X10*3/uL (160-400); Red Blood Count 4.59 X10*6/uL (4.20-5.50); Red Cell Distribution Width 12.6 % (11.0-16.0); White Blood Count 10.3 X10*3/uL (4.8-10.8)
[2022-02-24 07:51] LABS: Estimated Average Glucose 111 mg/dL; Hemoglobin A1c % 5.5 %
[2022-02-24 08:07] LABS: Alanine Aminotransferase 31 U/L (0-31); Albumin Level 4.5 g/dL (3.5-5.0); Alkaline Phosphatase 87 U/L (39-117); Anion Gap 16 (12-20); Aspartate Amino Transferase 30 U/L (5-31); Bilirubin Total 0.6 mg/dL (0.0-1.0); Blood Urea Nitrogen 7 mg/dL (9-16); Calcium 9.7 mg/dL (8.4-10.2); Carbon Dioxide 25 mmol/L (22-29); Chloride 105 mmol/L (96-108); Cholesterol 162 mg/dL; Cholesterol 169 mg/dL; Estimated Glomerular Filt Rate > 60; Glucose Random 89 mg/dL (60-115); HDL Cholesterol 71 mg/dL; HDL Cholesterol 74 mg/dL; LDL Cholesterol Calculated 71 mg/dl; LDL Cholesterol Calculated 75 mg/dl; Potassium 4.1 mmol/L (3.3-5.1); Sodium 142 mmol/L (135-145); Total Protein 7.5 g/dL (6.5-8.0); Triglycerides 101 mg/dL; Triglycerides 104 mg/dL
[2022-02-24 08:28] LABS: Thyroid Stimulating Hormone 2.62 uIU/mL (0.32-4.0)
[2022-02-24 08:29] LABS: Free T4 (Free Thyroxine) 0.98 ng/dL (0.71-1.85); Vitamin D 25-OH Total 27.2 ng/mL (>30)
[2022-02-24 09:11] LABS: Folate 15.5 ng/mL (> or = 4.0); Vitamin B12 320 pg/mL (200-900)
== END 2022-02-24 07:14 | disposition home or self-care (01) ==
LOC: HO.LAB 07:13
PROVIDERS: Nurse Practitioner Family; PCP Internal Medicine; Visit Provider Internal Medicine
DX: I25.10 Atherosclerotic heart disease of native coronary artery without angina pectoris (principal); I10 Essential (primary) hypertension; E78.00 Pure hypercholesterolemia, unspecified
CPT/HCPCS: 36415; 80053; 80061; 82306; 82607; 82746; 83036; 84439; 84443; 85025

== ENCOUNTER 2022-03-07 12:43 | Outpatient (REF) | payer OTHER, SELFPAY ==
--- NOTE | ~2022-03-07 | XR_ITS ---
EXAMINATION: CHEST. THORACIC SPINE. CLINICAL INFORMATION: Pain in thoracic spine. COMPARISON: None TECHNIQUE: 2 views of chest. Thoracic spine 3 views. FINDINGS: Chest: The lungs are well-expanded and clear. The heart size and pulmonary vascularity is normal. No gross bony abnormality seen. Dorsal spine: There is normal thoracic kyphosis. The vertebral heights, alignment and disc heights are normal. There is no visible acute fracture, dislocation or subluxation. The paravertebral soft tissues are normal. XR/XR thoracic spine 2V IMPRESSION: 1. Unremarkable chest exam. 2. Unremarkable dorsal spine exam.
--- NOTE | ~2022-03-07 | XR_ITS ---
EXAMINATION: CHEST. THORACIC SPINE. CLINICAL INFORMATION: Pain in thoracic spine. COMPARISON: None TECHNIQUE: 2 views of chest. Thoracic spine 3 views. FINDINGS: Chest: The lungs are well-expanded and clear. The heart size and pulmonary vascularity is normal. No gross bony abnormality seen. Dorsal spine: There is normal thoracic kyphosis. The vertebral heights, alignment and disc heights are normal. There is no visible acute fracture, dislocation or subluxation. The paravertebral soft tissues are normal. XR/XR chest 2V IMPRESSION: 1. Unremarkable chest exam. 2. Unremarkable dorsal spine exam.
== END 2022-03-07 12:44 | disposition home or self-care (01) ==
LOC: HO.XRAY 12:43
PROVIDERS: Referring Provider Internal Medicine; Visit Provider Nurse Practitioner Family
DX: Z01.810 Encounter for preprocedural cardiovascular examination (principal); I25.10 Atherosclerotic heart disease of native coronary artery without angina pectoris; I10 Essential (primary) hypertension; E78.5 Hyperlipidemia, unspecified; E78.00 Pure hypercholesterolemia, unspecified; M54.6 Pain in thoracic spine; U07.1 COVID-19; Z95.5 Presence of coronary angioplasty implant and graft; Z98.890 Other specified postprocedural states
CPT/HCPCS: 71046; 72070; 93005

== ENCOUNTER 2022-05-08 07:28 | Outpatient (REF) | payer OTHER, SELFPAY ==
--- NOTE | ~2022-05-08 | MM_ITS ---
EXAMINATION: MM SCREENING DIGITAL BREAST TOMOSYNTHESIS, BILATERAL CLINICAL INFORMATION: Screening. Asymptomatic. The lifetime risk of breast cancer based on the Tyrer-Cuzick Model is 4%. COMPARISON: Mammography: 05/03/2021, 04/13/2020, 04/09/2019 TECHNIQUE: Digital breast tomosynthesis is performed in both the craniocaudal and mediolateral oblique views along with computer-aided detection (CAD). Synthesized 2D images are generated from the tomosynthesis. FINDINGS: There are scattered areas of fibroglandular density (ACR BI-RADS breast composition Category b). There are no significant masses, abnormal calcifications, or other abnormalities. Parenchymal pattern is similar to prior exams. There is no developing density or architectural abnormality. Again, there is stable density posterior medial right breast on CC view similar to prior studies, likely sternalis muscle. There are incidental bilateral small intramammary nodes outer breasts. The axilla and skin contours are unremarkable. No significant changes. MM/MM tomosynthesis screening BI IMPRESSION: No mammographic evidence of malignancy. ASSESSMENT: BI-RADS 2: Benign RECOMMENDATION: Routine annual mammography screening. This patient's information was entered into a reminder system with a target due date for their next mammogram.
== END 2022-05-08 07:29 | disposition home or self-care (01) ==
LOC: HO.MAMMO 07:28
PROVIDERS: PCP Internal Medicine; Visit Provider Internal Medicine
DX: Z12.31 Encounter for screening mammogram for malignant neoplasm of breast (principal)
CPT/HCPCS: 77063; 77067

== ENCOUNTER → 2022-08-29 14:57 | Outpatient (BNVA) | payer OTHER, SELFPAY | PROVIDERS: PCP Internal Medicine; Referring Provider Internal Medicine; Visit Provider Internal Medicine Cardiovascular Disease ==

== ENCOUNTER 2022-09-02 07:42 | Outpatient (REF) | payer OTHER, SELFPAY ==
[2022-09-02 09:31] LABS: Cholesterol 155 mg/dL; HDL Cholesterol 74 mg/dL; LDL Cholesterol Calculated 65 mg/dl; Triglycerides 82 mg/dL
[2022-09-04 15:59] LABS: CRP High Sensitivity 1.4 mg/L
== END 2022-09-02 07:43 | disposition home or self-care (01) ==
LOC: HO.LAB 07:42
PROVIDERS: PCP Internal Medicine; Visit Provider Internal Medicine Cardiovascular Disease
DX: I25.10 Atherosclerotic heart disease of native coronary artery without angina pectoris (principal); E78.5 Hyperlipidemia, unspecified
CPT/HCPCS: 36415; 80061; 86141

== ENCOUNTER 2022-10-06 07:38 | Emergency (ER) | payer OTHER, SELFPAY ==
--- NOTE | ~2022-10-06 | XR_ITS ---
EXAMINATION: XR LUMBOSACRAL SPINE CLINICAL INFORMATION: Low back pain COMPARISON: None available. TECHNIQUE: Three views of the lumbosacral spine. FINDINGS: Vertebral bodies are well aligned and intervertebral discs are preserved there is subchondral sclerosis at the endplates of L2 vertebral body with marginal spurring. Soft tissues unremarkable. Pedicles are preserved. XR/XR lumbar spine 2-3V IMPRESSION: Mild degenerative changes at the level of L2.
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
--- NOTE | ~2022-10-06 | XR_ITS ---
EXAMINATION: XR SHOULDER, LEFT CLINICAL INFORMATION: Pain COMPARISON: 09/13/2021 TECHNIQUE: AP external rotation, Grashey, scapular Y, and axillary views of the left shoulder. FINDINGS: The bones and soft tissues are normal. No fracture. Glenohumeral and acromioclavicular alignment is anatomic with normal joint space. No abnormal soft tissue calcifications. XR/XR shoulder LT min 2V IMPRESSION: Normal left shoulder.
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
[2022-10-06 07:47] VITALS: BP 181/81; BP 182/98; PULSE 75; PULSE 86; RESP 20; TEMP 36.6; O2SAT 100; O2SAT 98; BMI 28.8
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
[2022-10-06 07:52] VITALS: BP 181/81; PULSE 75; RESP 20; TEMP 36.6; O2SAT 98
[2022-10-06] MEDS: Acetaminophen 325 MG TABLET 975 MG PO (07:57)
[2022-10-06 08:43] VITALS: BP 148/77; PULSE 67; RESP 18; O2SAT 94
[2022-10-06 10:00] VITALS: BP 162/72; PULSE 62; RESP 16
[2022-10-06] MEDS: Ibuprofen 800 MG TABLET PO (10:05)
[2022-10-06 11:41] VITALS: BP 151/77; PULSE 60; RESP 16; TEMP 36.7; O2SAT 99
== END 2022-10-06 11:44 | disposition home or self-care (01) ==
PROVIDERS: Emergency Provider Emergency Medicine; PCP Internal Medicine
DX: S13.4XXA Sprain of ligaments of cervical spine, initial encounter (principal); M54.2 Cervicalgia; M54.50 Low back pain, unspecified; R51.9 Headache, unspecified; M25.511 Pain in right shoulder; X58.XXXA Exposure to other specified factors, initial encounter; Y93.9 Activity, unspecified; Y92.410 Unspecified street and highway as the place of occurrence of the external cause; Y99.9 Unspecified external cause status; Z79.899 Other long term (current) drug therapy
CPT/HCPCS: 70450; 72100; 72125; 73030; 99284

== ENCOUNTER 2022-10-08 08:39 | Emergency (ER) | payer OTHER, SELFPAY ==
--- NOTE | ~2022-10-08 | CT_ITS ---
EXAMINATION: CT ABDOMEN AND PELVIS WITH CONTRAST CLINICAL INFORMATION: Right lower quadrant abdominal tenderness COMPARISON: None available. TECHNIQUE: Multidetector volumetric images were obtained from the superior aspect of the liver through the pubic symphysis following administration 85 mL of Omnipaque 350 intravenous contrast. Sagittal and coronal reformatted images were obtained on the technologist's workstation. Oral contrast: No This CT examination was performed using dose optimization techniques as appropriate, variously including the following: *Automated exposure control *Adjustment of mA and/or kV according to patient size (this includes techniques or standardized protocols for targeted exams where dose is matched to indication/reason for exam; i.e. extremities or head) *Use of iterative reconstruction technique DLP: 491 mGy-cm FINDINGS: LUNG BASES: Focal atelectatic changes are seen in dependent lung bases. The heart size is normal. Mild coronary artery calcifications are seen. There is no pericardial effusion. LIVER, GALLBLADDER, AND BILIARY TREE: The liver is normal in size, shape, and attenuation. No focal hepatic lesion or biliary ductal dilatation is present. The gallbladder is unremarkable with no evidence of radiopaque gallstones, gallbladder wall thickening, or obvious pericholecystic inflammatory changes. PANCREAS: Unremarkable. SPLEEN: The spleen is normal size. Small tumoral clusters of hypodensity seen in the mid spleen question small cysts. ADRENAL GLANDS: Unremarkable. KIDNEYS AND URETERS: The kidneys are normal in size, shape, and attenuation. No hydronephrosis, hydroureter, or calculi seen. No perinephric stranding. There are punctate tumor hypodensity in the lower pole right kidney probable cyst on coronal image 74/5. BLADDER: Unremarkable. GASTROINTESTINAL TRACT: There is scattered stool and gas seen in the colon without significant distention. The small bowel loops are normal caliber. Appendix is normal caliber ABDOMINAL WALL: No significant hernia is appreciated. LYMPH NODES: Normal. VASCULAR: Unremarkable. PELVIC VISCERA: Unremarkable. OSSEOUS STRUCTURES: Unremarkable. CT/CT abdomen pelvis w IV con IMPRESSION: No acute intra-abdominal process seen. Mild constipation. Colonic diagnosis without diverticulitis. Normal appendix. Fleischner guidelines were followed.
[2022-10-08 08:49] VITALS: BP 132/76; PULSE 83; RESP 19; TEMP 36.6; O2SAT 99; BMI 27.3
[2022-10-08 09:12] LABS: MANUAL DIFF FLAG NO
[2022-10-08 09:13] LABS: Basophils Absolute Auto 0.1 X10*3/uL (0.0-0.2); Basophils Percent Auto 0.6 % (0-2); Eosinophils Absolute Auto 0.2 X10*3/uL (0.0-0.4); Eosinophils Percent Auto 1.7 % (0-4); Hematocrit 42.6 % (37.0-47.0); Hemoglobin 14.4 g/dl (12.0-16.0); Imm Gran Abs Auto 0.04 X10*3/uL (0.00-0.03); Imm Gran Pct Auto 0.4 % (0.0-0.4); Lymphocytes Absolute Auto 3.1 X10*3/uL (1.2-4.9); Lymphocytes Percent Auto 29.2 % (20-40); Mean Corpuscular HGB Conc 33.8 g/dl (31.0-35.0); Mean Corpuscular Hemoglobin 31.4 pg (27.0-33.0); Mean Platelet Volume 9.9 fL (9.4-12.3); Monocytes Absolute Auto 0.6 X10*3/uL (0.1-1.2); Monocytes Percent Auto 5.5 % (2-11); Neutrophils Absolute Auto 6.6 x10*3/uL (2.0-8.3); Neutrophils Percent Auto 62.6 % (45-73); Platelet Count 258 X10*3/uL (160-400); Red Blood Count 4.58 X10*6/uL (4.20-5.50); Red Cell Distribution Width 12.4 % (11.0-16.0); White Blood Count 10.6 X10*3/uL (4.8-10.8)
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
[2022-10-08 09:28] LABS: Alanine Aminotransferase 34 U/L (0-31); Albumin Level 4.3 g/dL (3.5-5.0); Alkaline Phosphatase 76 U/L (39-117); Anion Gap 14 (12-20); Aspartate Amino Transferase 29 U/L (5-31); Bilirubin Direct 0.2 mg/dL (0.0-0.5); Bilirubin Total 0.7 mg/dL (0.0-1.0); Blood Urea Nitrogen 7 mg/dL (9-16); Calcium 9.6 mg/dL (8.4-10.2); Carbon Dioxide 19 mmol/L (22-29); Chloride 109 mmol/L (96-108); Creatinine Clr Calc Pharmacy 69.2; Estimated Glomerular Filt Rate > 60; Glucose Random 211 mg/dL (60-115); Lipase 14 U/L (8-78); Potassium 3.6 mmol/L (3.3-5.1); Sodium 138 mmol/L (135-145); Total Protein 7.5 g/dL (6.5-8.0)
[2022-10-08 10:17] LABS: Appearance Urine Clear; Color Urine Yellow; Glucose Urine UA 100 mg/dL (Negative); Leukocyte Esterase Urine Negative (Negative); Nitrite Urine Negative (Negative); Specific Gravity - Urine <= 1.005 (1.005-1.025); UMIC TRIGGER UACC YES; Urine Blood Moderate (2+) (Negative); Urine Ketones Negative (Negative); Urine Protein Negative (Neg-Trace)
[2022-10-08 10:24] VITALS: BP 152/67; PULSE 60; RESP 14; O2SAT 97
[2022-10-08 10:34] LABS: Bacteria Urine None Seen (None Seen); Hyaline Casts Urine 0-2 /LPF (0-2); Squamous Epithelial Cell Urine 0-2 /HPF (0-2); WBC Urine 0-5 /HPF (0-5)
[2022-10-08] MEDS: Ketorolac Tromethamine 15 MG/ML VIAL IVPUSH (10:41)
[2022-10-08] MEDS: ondansetron HCL 4 MG/2 ML VIAL IVPUSH (10:41)
[2022-10-08] MEDS: iohexoL 350 MG/ML 100 ML INFUS..BTL IV (11:01)
--- NOTE | 2022-10-08 11:18 | PC.NURSE ---
20g iv inserted rac, pt taken to CT and is now back in her room. meds given per order.
== END 2022-10-08 13:41 | disposition home or self-care (01) ==
PROVIDERS: Emergency Provider Student in an Organized Health Care Education/Training Program; PCP Internal Medicine
DX: K59.00 Constipation, unspecified (principal); I10 Essential (primary) hypertension; E78.00 Pure hypercholesterolemia, unspecified; F17.210 Nicotine dependence, cigarettes, uncomplicated; Z79.02 Long term (current) use of antithrombotics/antiplatelets; Z79.82 Long term (current) use of aspirin; Z79.899 Other long term (current) drug therapy
CPT/HCPCS: 36415; 74177; 80048; 80076; 81001; 83690; 85025; 96374; 96375; 99283; 99284; J1885; J2405; Q9967

== ENCOUNTER 2022-11-06 13:52 | Day surgery (SDC) | payer OTHER, SELFPAY ==
[2022-11-06 14:03] VITALS: BMI 28.5
[2022-11-06 14:07] VITALS: BP 114/64; PULSE 66; RESP 16; TEMP 36.7; O2SAT 97
[2022-11-06] MEDS: Lactated Ringers 1,000 ML 100 ML IVCONT (14:18)
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
--- NOTE | 2022-11-06 16:07 | W.PM.OPN ---
Operative Note Operative Note Date of Service: 11/06/22 Narrative: COLONOSCOPY TILL CECUM WITH BIOPSIES Pre-op diagnosis: screening, hx of colon polyps Post-op diagnosis:? Colon polyps, diverticulosis, hemorrhoids Endoscopist:? Cassandra Das MD Anesthesia:?MAC Consent: Indications for the procedure and potential complications of bleeding, perforation, reaction to medications and missed diagnosis were discussed with the patient and informed consent was obtained. Instrument: Olympus PCF H 190 L variable stiffness pediatric colonoscope Monitoring: Vital signs and clinical assessment, intermittent blood pressure monitoring, continuous EKG monitoring, Pulse oximetry and Carbon Dioxide monitoring were done throughout the procedure. Please see anesthesia flowsheet. Colon withdrawl time was 12 minutes. Procedure: The patient was placed in the left lateral decubitis position and pre-procedure medications were administered. After a digital rectal examination of the ano-rectum, the video colonoscope was inserted into the rectum and advanced through the colon to the cecum. The colonoscope was slowly withdrawn in a retrograde panoramic fashion and the colon mucosa was carefully examined including a retroflexed view of the rectum. Findings and interventions are described below. Procedure Difficulty: Colon was long in the was some loop formation - no maneuvers were required Findings: Terminal Ileum: Not evaluated Cecum: Normal Ascending Colon: Two 5-7 mm diminutive polyps at the site of past polypectomy in the proximal AC - removed with a cold biopsy. Scattered moderate diverticulosis throughout the colon Transverse Colon: Scattered moderate diverticulosis throughout the colon Descending Colon: Scattered moderate diverticulosis throughout the colon Sigmoid Colon: Moderate diverticulosis Rectum: Normal Ano-rectum: Moderate internal hemorrhoids Colon preparation: Good after some irrigation Impression and Post Procedure Diagnosis: Colonoscopy Findings: Two 5-7 mm diminutive polyps at the site of past polypectomy in the proximal AC - removed with a cold biopsy. Moderate diverticulosis seen in the entire colon Moderate hemorrhoids on retroflexed exam. Plan: Await pathology results Patient has an appointment on 11/20/22 in the GI Clinic with YADY Diehl. Repeat Colonoscopy interval based on path results - in 3-5 years if polyps are adenomatous and due to a hx of adenomatous colon polyps. Above findings were reviewed with the patient and colon polyps and diverticulosis handouts were given in the discharge area
[2022-11-06 16:40] VITALS: BP 104/54; PULSE 54; RESP 16; TEMP 36.1; O2SAT 98
--- NOTE | 2022-11-06 16:42 | PC.NURSE ---
DR. GONZALES AT BEDSIDE TO REVIEW PROCECURE AND PLAN OF CARE WITH PATIENT.
[2022-11-06 16:55] VITALS: BP 114/64; PULSE 59; RESP 18; TEMP 36.3; O2SAT 96
== END 2022-11-06 17:22 | disposition home or self-care (01) ==
PROVIDERS: PCP Internal Medicine; Visit Provider Internal Medicine Gastroenterology
PROC: 0DJD8ZZ Inspection of Lower Intestinal Tract, Via Natural or Artificial Opening Endoscopic (ICD-10-PCS; CPT 45378; principal; 2022-11-06 15:30)
DX: Z12.11 Encounter for screening for malignant neoplasm of colon (principal); D12.2 Benign neoplasm of ascending colon; K57.30 Diverticulosis of large intestine without perforation or abscess without bleeding; K64.8 Other hemorrhoids; K56.2 Volvulus; Z86.010 Personal history of colon polyps; F17.210 Nicotine dependence, cigarettes, uncomplicated
CPT/HCPCS: 45380; 88305; J2250

== ENCOUNTER → 2022-11-06 13:52 | Outpatient (BNV) | payer OTHER, SELFPAY | PROVIDERS: PCP Internal Medicine; Visit Provider Internal Medicine Gastroenterology | DX: Z12.11 Encounter for screening for malignant neoplasm of colon (principal); Z86.010 Personal history of colon polyps | CPT/HCPCS: 45380 ==

== ENCOUNTER 2022-11-10 12:30 | Outpatient (AMB) | payer OTHER, SELFPAY ==
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
[2022-11-10 12:33] VITALS: BP 138/76; PULSE 78; O2SAT 98; BMI 26.6
== END 2022-11-10 12:46 | disposition home or self-care (01) ==
PROVIDERS: PCP Internal Medicine; Visit Provider Internal Medicine
DX: M54.2 Cervicalgia (principal); M54.50 Low back pain, unspecified; V89.2XXA Person injured in unspecified motor-vehicle accident, traffic, initial encounter
CPT/HCPCS: 99213

== ENCOUNTER 2022-11-20 07:15 | Outpatient (AMB) | payer OTHER, SELFPAY ==
--- NOTE | 2022-11-20 07:43 | MHC.OFFVIS ---
Intake Vital Signs 11/20/22 07:49 Height 5 ft Weight 137 lb 8 oz BMI 26.9 BP 138/77 Blood Pressure Location Lt brachial Position Sitting Pulse 68 Intake Visit Reasons: S/p colon- Thiago Intake Note: Patient follow up for Colonoscopy screening. Patient denies any other GI issues. Credit Control Administrator Required: No Accompanied by: Self / Same As Patient Allergies No Known Allergies Allergy (Verified 11/20/22 07:42) Medication List - Last Reconciled 11/20/22 by Jo Galaviz PA-C amlodipine 2.5 mg See Protocol PO DAILY 90 days aspirin 81 mg PO DAILY blood pressure monitor (Blood Pressure Kit) As directed cholecalciferol (vitamin D3) 25 mcg PO DAILY ezetimibe (Zetia) 10 mg PO DAILY rosuvastatin 40 mg PO DAILY 90 days HPI HPI Comments History of Present Illness Details A 62 y/o female with hx colon polyps- She f/u after recent colonoscopy No GI or general complaints PFSH Medical History Acute coronary syndrome Alcohol abuse CAD (coronary artery disease) Cervical dysplasia History of uterine fibroid Hypercholesterolemia Overweight (BMI 25.0-29.9) Tubular adenoma of colon Vitamin D deficiency Surgical History History of tubal ligation Hx of colonoscopy Stented coronary artery Family History Father Hypertension Mother Hypertension Stroke CVD (cardiovascular disease) Sister Stroke Brother Substance abuse Bipolar 1 disorder Mental health disorder Social History Household Members: Family Housing: House Do you presently have visiting nurse or other home services: No Alcohol intake: current Alcohol intake frequency: a few times a month Alcohol type: beer Patient Tobacco Use Status: Current someday Tobacco user Tobacco use type: Cigarette Cigarettes Per Day: 3 Years Smoked: 25 e-Cigarette/Vaping Use: Never Used Second Hand Smoke Exposure: No service: No Current occupational status: employed 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 Cognitive needs: No Hearing needs: No Vision needs: No Review of Systems Const All systems reviewed & are unremarkable except as noted in HPI and below Physical Exam Vital Signs: Last Vital Signs Pulse 68 11/20/22 07:49 BP 138/77 07/31/23 07:49 BMI result Body Mass Index 26.9 Const General: cooperative, healthy appearing, comfortable, no acute distress and well groomed Orientation/consciousness: patient oriented x3 Limitations: no limitations Neuro General: patient oriented x3 Psych Appearance: grossly normal and well kempt Mental Status: mental status grossly normal Speech and movement: Normal speech and movement present Affect: normal affect Attitude: cooperative Thought process: Normal thought process present Thought content: Normal thought content present Insight: Good insight present (Psych) Judgement: Good judgement present (Psych) Results Reviewed Results Reviewed: Findings: Terminal Ileum: Not evaluated Cecum:? Normal Ascending Colon:? Two 5-7 mm diminutive polyps at the site of past polypectomy in the proximal AC - removed with a cold biopsy.? Scattered moderate diverticulosis throughout the colon Transverse Colon:? Scattered moderate diverticulosis throughout the colon Descending Colon:? Scattered moderate diverticulosis throughout the colon Sigmoid Colon:? Moderate diverticulosis Rectum:? Normal Ano-rectum:? Moderate internal hemorrhoids Colon preparation:? Good after some irrigation Impression and Post Procedure Diagnosis: Colonoscopy Findings: Two 5-7 mm diminutive polyps at the site of past polypectomy in the proximal AC - removed with a cold biopsy. Moderate diverticulosis seen in the entire colon Moderate hemorrhoids on retroflexed exam. Plan: Await pathology results Patient has an appointment on 11/20/22 in the GI Clinic with YADY Diehl. Repeat Colonoscopy interval based on path results - in 3-5 years if polyps are adenomatous and due to a hx of adenomatous colon polyps. Above findings were reviewed with the patient and colon polyps and diverticulosis handouts were given in the discharge area Name:Bettie Angulo Age/Sex: 62/F Attending: Cassandra Das MD : 1960 Submitted by: Cassandra Das MD Copies to: Gian Clayton MD MR #: [id number] ? Status: [facility] Collected: 11/06/22 Location: [facility] Received: 11/07/22 Diagnosis Colon, ascending, polyp, biopsy:? Clinically polypoid colonic mucosa noted; negative for a hyperplastic or neoplastic process. Clinical History Pre-Op Dx:? Screening, history of colon polyps Post-Op Dx: Polyp, diverticulosis, hemorrhoids You should undergo a colonoscopy again in 3 years. Assessment & Plan Assessment & Plan (1) History of adenomatous polyp of colon: Comment: Ascending Colon: A 1.5 to 2 cms sessile polyp in a diverticulum in proximal AC close to the lower lip of ICV (recurrent polyp since polyp was removed from the same location during previous two colonoscopes) - polyp was removed with a hot snare and polypectomy site was closed with a hemoclip and marked by agus ink. Moderate diverticulosis Code(s): Z86.010 - Personal history of colonic polyps (2) Hemorrhoids: Code(s): K64.9 - Unspecified hemorrhoids Plan: HFD Avoid strain (3) Diverticulosis of colon: Comment: Maintain high-fiber diet, diverticulosis/diverticulitis discussed Code(s): K57.30 - Diverticulosis of large intestine without perforation or abscess without bleeding Patient Instructions: Very pleasant 62 y/o F- hx adenomas f/u after colonoscopy Repeat colonoscopy 3 years Reviewed HFD- Diverticulosis/ diverticulits- ER protocol Call with concerns Coding Level of Care Code Est Pt Level 3 (36552) Diagnoses History of adenomatous polyp of colon Z86.010 Hemorrhoids K64.9 Diverticulosis of colon K57.30 Time Spent (min) 20
[2022-11-20 07:49] VITALS: BP 138/77; PULSE 68; BMI 26.9
== END 2022-11-20 07:59 | disposition home or self-care (01) ==
PROVIDERS: PCP Internal Medicine; Visit Provider Physician Assistant
DX: Z86.010 Personal history of colon polyps (principal); K57.30 Diverticulosis of large intestine without perforation or abscess without bleeding; D12.2 Benign neoplasm of ascending colon; Z71.2 Person consulting for explanation of examination or test findings
CPT/HCPCS: 99213

== ENCOUNTER → 2022-11-20 07:15 | Outpatient (BNVA) | payer OTHER, SELFPAY | PROVIDERS: PCP Internal Medicine; Visit Provider Physician Assistant ==

== ENCOUNTER 2022-12-08 13:50 | Outpatient (AMB) | payer OTHER, SELFPAY ==
[2022-12-08 13:53] VITALS: BP 128/70; PULSE 77; O2SAT 97; BMI 27.0
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
== END 2022-12-08 14:25 | disposition home or self-care (01) ==
PROVIDERS: PCP Internal Medicine; Visit Provider Nurse Practitioner Family
DX: M54.50 Low back pain, unspecified (principal); M54.2 Cervicalgia; V89.2XXA Person injured in unspecified motor-vehicle accident, traffic, initial encounter
CPT/HCPCS: 99213

== ENCOUNTER 2023-01-09 17:00 | Outpatient (RCR) | payer OTHER, SELFPAY ==
--- NOTE | 2022-11-27 14:53 | MHC.PT.EP ---
[facility] [place] Office [place] Office [place] Office [address] Leila Sun [address] [phone] F: [phone] F: [phone] F: [phone] F: [phone] Physical Therapy Plan of Care Date of Evaluation: Date of Surgery: N/A Diagnosis: cervicalgia, low back pain (RL) Assessment: pt is a 62 y/o female presenting to physical therapy w/ referring diagnosis of cervicalgia; low back pain. Impairments include pain, decreased range of motion, decreased strength, impaired functional mobility, impaired postural awareness, and altered ambulation mechanics. pt is a good candidate for skilled PT due to age, potential remediation of impairments, typical disease/condition progression and prognosis, comorbidities, and motivation. pt would benefit from skilled PT intervention to provide a tailored strengthening and stretching exercise program, functional training, gait training, postural re-training, neuromuscular re-education, modalities as needed for pain, equipment safety demonstration. Frequency and Duration: The patient will be seen 2x/wk for 4 wks Short Term Goals: pt will be I w/ HEP to promote self-management of condition. pt will improve lumbar flexion to 100% to promote ease in picking up objects from the ground. Insulation Blower Goals: pt will report a statistically significant improvement in self-reported outcome measure, NDI, to promote return to PLOF. pt will improve B cervical rotation by 15 degrees to promote ease in head turns w/ driving. Treatment Plan: Modalities to reduce pain, spasms and effusion. Manual therapy to restore motion and function. Therapeutic exercise to improve strength and flexibility. Neuromuscular re-education for posture and balance. Therapeutic activities to return to functional activities of daily living. Electronically signed by: Mimi Olivier PT, DPT Please sign and return to therapist. Thank you for your referral.
--- NOTE | 2023-02-05 12:25 | MHC.PT.DC ---
[facility] [place] Office [place] Office [place] Office [address] Leila Sun [address] [phone] F: [phone] F: [phone] F: [phone] F: [phone] Physical Therapy Discharge Report Diagnosis: cervicalgia, low back pain (RL) Date of Surgery: N/A Date of Evaluation: 11/27/22 Date of Discharge: 02/05/23 Treatments to Date: 10 Cancellations to Date: 1 No Shows to Date: Discharge Status: Improved Function Independent with HEP Discharge Summary: Pt independent w/HEP and NDI improved significantly Electronically signed by: Mimi Olivier PT, DPT Please sign and return to therapist. Thank you for your referral.
== END 2023-02-05 12:25 | disposition home or self-care (01) ==
LOC: HO.PT 17:00
PROVIDERS: PCP Internal Medicine; Visit Provider Internal Medicine
DX: M54.2 Cervicalgia (principal); M54.50 Low back pain, unspecified; V89.2XXD Person injured in unspecified motor-vehicle accident, traffic, subsequent encounter
CPT/HCPCS: 97110; 97140; 97162; 97530

== ENCOUNTER 2023-02-08 07:15 | Outpatient (AMB) | payer OTHER, SELFPAY ==
[2023-02-08 07:26] VITALS: BP 130/76; PULSE 72; O2SAT 98; BMI 26.6
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
== END 2023-02-08 07:43 | disposition home or self-care (01) ==
PROVIDERS: PCP Internal Medicine; Visit Provider Nurse Practitioner Family
DX: M54.50 Low back pain, unspecified (principal); M54.2 Cervicalgia; V89.2XXA Person injured in unspecified motor-vehicle accident, traffic, initial encounter
CPT/HCPCS: 99213

== ENCOUNTER 2023-03-14 08:54 | Outpatient (AMB) | payer OTHER, SELFPAY ==
[2023-03-14 08:59] VITALS: BP 136/84; PULSE 67; O2SAT 99; BMI 26.2
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
== END 2023-03-14 10:15 | disposition home or self-care (01) ==
PROVIDERS: Visit Provider Internal Medicine
DX: Z00.00 Encounter for general adult medical examination without abnormal findings (principal); I25.10 Atherosclerotic heart disease of native coronary artery without angina pectoris; I10 Essential (primary) hypertension; Z23 Encounter for immunization; E78.00 Pure hypercholesterolemia, unspecified; K21.9 Gastro-esophageal reflux disease without esophagitis; R73.02 Impaired glucose tolerance (oral); Z72.0 Tobacco use; F41.1 Generalized anxiety disorder; Z12.4 Encounter for screening for malignant neoplasm of cervix
CPT/HCPCS: 90471; 90686; 99396

== ENCOUNTER 2023-03-14 10:12 | Outpatient (REF) | payer OTHER, SELFPAY ==
[2023-03-14 14:59] LABS: CT PCR NOT DETECTED (Not Detect.); NG PCR NOT DETECTED (Not Detect.)
[2023-03-15 12:00] LABS: BV Int Neg Control Negative (Negative); BV Int Pos Control Positive (Positive)
[2023-03-23 03:28] LABS: HPV mRNA E6/E7 rflx Not Detected (Not Detected)
== END 2023-03-14 10:13 | disposition home or self-care (01) ==
LOC: HO.LNP 10:12
PROVIDERS: Visit Provider Internal Medicine
DX: Z12.4 Encounter for screening for malignant neoplasm of cervix (principal); Z11.51 Encounter for screening for human papillomavirus (HPV); Z20.2 Contact with and (suspected) exposure to infections with a predominantly sexual mode of transmission
CPT/HCPCS: 0353U; 87480; 87510; 87624; 87660; 88142

== ENCOUNTER 2023-04-26 07:52 | Outpatient (AMB) | payer OTHER, SELFPAY ==
[2023-04-26 08:09] VITALS: BP 136/80; PULSE 70; O2SAT 98; BMI 26.0
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
== END 2023-04-26 08:27 | disposition home or self-care (01) ==
PROVIDERS: PCP Internal Medicine; Visit Provider Internal Medicine
DX: M54.2 Cervicalgia (principal)
CPT/HCPCS: 99214

== ENCOUNTER 2023-05-14 07:26 | Outpatient (REF) | payer OTHER, SELFPAY | END 2023-05-14 07:27 | disposition home or self-care (01) | LOC: HO.MAMMO 07:26 | PROVIDERS: PCP Internal Medicine; Visit Provider Internal Medicine | DX: Z12.31 Encounter for screening mammogram for malignant neoplasm of breast (principal) | CPT/HCPCS: 77063; 77067 ==

== ENCOUNTER → 2023-05-14 07:45 | Outpatient (BNV) | payer OTHER, SELFPAY | PROVIDERS: PCP Internal Medicine; Visit Provider Radiology Diagnostic Radiology | DX: Z12.31 Encounter for screening mammogram for malignant neoplasm of breast (principal) | CPT/HCPCS: 77063; 77067 ==

== ENCOUNTER 2023-06-15 08:16 | Outpatient (AMB) | payer OTHER, SELFPAY ==
[2023-06-15 08:33] VITALS: BP 130/70; PULSE 74; O2SAT 99; BMI 25.8
--- NOTE | 2023-06-15 08:33 | A.OFFPC_ITS ---
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 Allergies No Known Allergies Allergy (Verified 04/26/23 08:26) Medication List - Last Reconciled 06/15/23 by Gian Clayton MD amlodipine 2.5 mg See Protocol PO DAILY 90 days aspirin 81 mg PO DAILY blood pressure monitor (Blood Pressure Kit) As directed cholecalciferol (vitamin D3) 25 mcg PO DAILY cyclobenzaprine 10 mg PO BEDTIME ezetimibe (Zetia) 10 mg PO DAILY meloxicam 15 mg PO DAILY rosuvastatin 40 mg PO DAILY 90 days Tobacco use date assessed: 06/15/23 HPI follow up HPI Details 62-year-old female smoker with coronary artery disease hypertension hypercholesterolemia GERD impaired glucose tolerance generalized anxiety disorder last seen in February 2023. Patient's colonoscopy is up-to-date October 2022 mammogram was done in April 2023. Review of the notes in April was seen as an urgent visit for neck pain prescribed muscle relaxant and anti- inflammatory and has been advised physical therapy. still smoking msick for 1 week now states had flu - but is better PFSH Medical History Acute coronary syndrome Alcohol abuse CAD (coronary artery disease) Cervical dysplasia History of uterine fibroid Hypercholesterolemia Overweight (BMI 25.0-29.9) Tubular adenoma of colon Vitamin D deficiency Surgical History Stented coronary artery Hx of colonoscopy History of tubal ligation Family History Father Hypertension Mother Hypertension Stroke CVD (cardiovascular disease) Sister Stroke Brother Substance abuse Bipolar 1 disorder Mental health disorder Social History Household Members: Family Housing: House Do you presently have visiting nurse or other home services: No Alcohol intake: current Alcohol intake frequency: a few times a month Alcohol type: beer Comment: oncea week4 elena Patient Tobacco Use Status: Current someday Tobacco user Tobacco use type: Cigarette Cigarettes Per Day: 3 Years Smoked: 25 still smoking Packs per year/per ci.00 e-Cigarette/Vaping Use: Never Used Second Hand Smoke Exposure: No service: No Current occupational status: employed 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 How often do you have a drink containing alcohol?: Monthly or less 2. How many drinks containing alcohol do you have on a typical day when you are drinking?: 1 or 2 3. How often do you have six or more drinks on one occasion?: Never Total Score: 1 CIERRA-7 AMB Questionnaire CIERRA-7 Date CIERRA - 7 assessed: 04/26/23 Source: Developed by Drs. Quinten Antonio, Lacy Arrieta, Sid Morgan and colleagues, with an educational ember from [employer]. Physical exam (Primary Care) Vital Signs: Last Vital Signs Pulse 74 06/15/23 08:33 BP 130/70 06/15/23 08:33 Pulse Ox 99 06/15/23 08:33 Oxygen Delivery Method Room Air 06/15/23 08:33 BMI result Body Mass Index 25.8 Tobacco/Smoking Status: Tobacco use Status Tobacco use date assessed 06/15/23 06/15/23 08:37 Patient Tobacco Use Status Current someday Tobacco 06/15/23 08:37 Tobacco use type Cigarette 06/15/23 08:37 e-Cigarette/Vaping Use Never Used 06/15/23 08:37 Thrive Assessment: Date of Thrive Assessment Date Thrive assessed 04/26/23 06/15/23 08:37 Const General: alert; No acute distress Eyes Conjunctivae: conjunctivae normal Resp Auscultation: clear to auscultation bilaterally Cardio Rate: regular rate Rhythm: regular rhythm GI Inspection: Yes normal to inspection Extrem General: Yes normal to inspection and No edema Assessment and Plan Assessment & Plan (1) Tobacco abuse: Code(s): Z72.0 - Tobacco use Plan: Patient is strongly advised to stop smoking in light of having CAD problem (2) CAD (coronary artery disease): Code(s): I25.10 - Atherosclerotic heart disease of [place] coronary artery without angina pectoris Plan: Control the cholesterol, weight, blood pressure continue with aspirin 81 mg once a day (3) Hypertension: Code(s): I10 - Essential (primary) hypertension Plan: Continue with blood pressure medication. Decrease salt intake and exercise amlodipine 2.5 mg (4) Hypercholesterolemia: Code(s): E78.00 - Pure hypercholesterolemia, unspecified Plan: Avoid fried foods, chicken skin, eggs, butter margarine, pastries and meat. Be it pork or beef they have a lot of cholesterol LDL goal of less than 70 and triglyceride of less than 150 patient on rosuvastatin 40 mg once a day last blood work for cholesterol was August 2022 blood work requested. (5) GERD (gastroesophageal reflux disease): Code(s): K21.9 - Gastro-esophageal reflux disease without esophagitis Plan: Avoid the foods that causes that usually spicy foods, tomato products, juices, coffee, soda and foods that your sensitive to. After eating do not lie down, allow 3-4 hours before in lie down. And keep the head of bed above 30 degrees to avoid the acid from going up. (6) Impaired glucose tolerance: Code(s): R73.02 - Impaired glucose tolerance (oral) Plan: Decrease the amount of carbohydrate intake, pasta, bread, rice and potatoes are all sugar and that is aside from all the sweet stuff, remember that fruits are good but they are Sweet also. Orders: Orders Lipid Panel 3 Months E78.00 - Pure hypercholesterolemia, unspecified Free T4 (Free Thyroxine) 3 Months E78.00 - Pure hypercholesterolemia, unspecified Vitamin B12 and Folate 3 Months E78.00 - Pure hypercholesterolemia, unspecified Vitamin D 25-OH Total 3 Months E78.00 - Pure hypercholesterolemia, unspecified Hemoglobin A1c 3 Months R73.02 - Impaired glucose tolerance (oral) Comprehensive Met. Panel 3 Months R73.02 - Impaired glucose tolerance (oral) Complete Blood Count Auto Diff 3 Months E78.00 - Pure hypercholesterolemia, unspecified Thyroid Stimulating Hormone 3 Months E78.00 - Pure hypercholesterolemia, unspecified Medications: Refilled rosuvastatin 40 mg PO DAILY 90 days 90 tabs 2RF E78.00 - Pure hypercholesterolemia, unspecified Coding Level of Care Code Est Pt Level 4 (10021) Diagnoses Tobacco abuse Z72.0 CAD (coronary artery disease) I25.10 Hypertension I10 Hypercholesterolemia E78.00 GERD (gastroesophageal reflux disease) K21.9 Impaired glucose tolerance R73.02
== END 2023-06-15 08:54 | disposition home or self-care (01) ==
PROVIDERS: PCP Internal Medicine; Visit Provider Internal Medicine
DX: Z72.0 Tobacco use (principal); I25.10 Atherosclerotic heart disease of native coronary artery without angina pectoris; I10 Essential (primary) hypertension; E78.00 Pure hypercholesterolemia, unspecified; K21.9 Gastro-esophageal reflux disease without esophagitis; R73.02 Impaired glucose tolerance (oral)
CPT/HCPCS: 99214

== ENCOUNTER 2023-08-25 08:31 | Outpatient (REF) | payer OTHER, SELFPAY ==
[2023-08-25 08:50] LABS: MANUAL DIFF FLAG NO
[2023-08-25 09:28] LABS: Basophils Absolute Auto 0.1 X10*3/uL (0.0-0.2); Basophils Percent Auto 0.6 % (0-2); Eosinophils Absolute Auto 0.3 X10*3/uL (0.0-0.4); Eosinophils Percent Auto 3.2 % (0-4); Hematocrit 42.3 % (37.0-47.0); Hemoglobin 14.3 g/dl (12.0-16.0); Imm Gran Abs Auto 0.03 X10*3/uL (0.00-0.03); Imm Gran Pct Auto 0.3 % (0.0-0.4); Lymphocytes Absolute Auto 2.9 X10*3/uL (1.2-4.9); Lymphocytes Percent Auto 32.7 % (20-40); Mean Corpuscular HGB Conc 33.8 g/dl (31.0-35.0); Mean Corpuscular Hemoglobin 31.9 pg (27.0-33.0); Mean Corpuscular Volume 94.4 fL (80.0-98.0); Mean Platelet Volume 9.9 fL (9.4-12.3); Monocytes Absolute Auto 0.6 X10*3/uL (0.1-1.2); Monocytes Percent Auto 6.6 % (2-11); Neutrophils Absolute Auto 5.1 x10*3/uL (2.0-8.3); Neutrophils Percent Auto 56.6 % (45-73); Platelet Count 239 X10*3/uL (160-400); Red Blood Count 4.48 X10*6/uL (4.20-5.50)
[2023-08-25 10:03] LABS: Estimated Average Glucose 114 mg/dL; Hemoglobin A1c % 5.6 % (<6.0)
[2023-08-25 10:10] LABS: Alanine Aminotransferase 34 U/L (0-31); Albumin Level 4.2 g/dL (3.5-5.0); Alkaline Phosphatase 76 U/L (39-117); Anion Gap 14 (12-20); Aspartate Amino Transferase 34 U/L (5-31); Bilirubin Total 0.5 mg/dL (0.0-1.0); Blood Urea Nitrogen 9 mg/dL (9-16); Calcium 9.7 mg/dL (8.4-10.2); Carbon Dioxide 24 mmol/L (22-29); Chloride 109 mmol/L (96-108); Cholesterol 155 mg/dL (<200); Estimated Glomerular Filt Rate > 60; Glucose Random 76 mg/dL (60-115); HDL Cholesterol 79 mg/dL (>40); LDL Cholesterol Calculated 59 mg/dL (<100); Potassium 4.3 mmol/L (3.3-5.1); Sodium 143 mmol/L (135-145); Total Protein 7.4 g/dL (6.5-8.0); Triglycerides 86 mg/dL (<150)
[2023-08-25 10:27] LABS: Free T4 (Free Thyroxine) 0.82 ng/dL (0.71-1.85); Thyroid Stimulating Hormone 1.96 uIU/mL (0.32-4.0); Vitamin D 25-OH Total 50.2 ng/mL (>30)
[2023-08-25 11:02] LABS: Folate 9.5 ng/mL (> or = 4.0); Vitamin B12 237 pg/mL (200-900)
== END 2023-08-25 08:32 | disposition home or self-care (01) ==
LOC: HO.LAB 08:31
PROVIDERS: PCP Internal Medicine; Visit Provider Internal Medicine
DX: R73.02 Impaired glucose tolerance (oral) (principal); E78.00 Pure hypercholesterolemia, unspecified
CPT/HCPCS: 36415; 80053; 80061; 82306; 82607; 82746; 83036; 84439; 84443; 85025

== ENCOUNTER 2023-08-30 14:15 | Outpatient (AMB) | payer OTHER, SELFPAY ==
--- NOTE | 2023-08-30 14:24 | A.OFFVIS_ITS ---
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 History was obtained with help of systems software specialist. Despite the systems software specialist she is not a good historian. She says few different symptoms. Mostly bothered by palpitations, says happens almost on every day basis where she feels rapid heart rate suddenly last for few seconds. This associated initiated by chest pain syndrome which she says similar to her myocardial infarction pain but last very briefly. However when I asked her what type of symptoms she has she says she is more like a sharp pain. So it is very difficult to assess the symptoms. She is currently taking all her medications. She denies any exertional chest pain although again this is difficult to determine. Denies any heart failure symptoms. Denies any light-headedness, syncope. PFSH Medical History CAD (coronary artery disease) Acute coronary syndrome Overweight (BMI 25.0-29.9) Cervical dysplasia History of uterine fibroid Vitamin D deficiency Hypercholesterolemia Tubular adenoma of colon Alcohol abuse Surgical History Stented coronary artery Hx of colonoscopy History of tubal ligation Family History Father Hypertension Mother Hypertension Stroke CVD (cardiovascular disease) Sister Stroke Brother Substance abuse Bipolar 1 disorder Mental health disorder Social History Household Members: Family Housing: House Do you presently have visiting nurse or other home services: No Alcohol intake: current Alcohol intake frequency: a few times a month Alcohol type: beer Comment: oncea week4 beers Patient Tobacco Use Status: Current someday Tobacco user Tobacco use type: Cigarette Cigarettes Per Day: 3 Years Smoked: 25 still smoking e-Cigarette/Vaping Use: Never Used Second Hand Smoke Exposure: No service: No Current occupational status: employed 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 Current occupational exposures/hazards: No Cognitive needs: No Hearing needs: No Vision needs: No Review of Systems Const Denies chills, Denies fatigue, Denies fever(s), Denies frequent falls, Denies weakness, Denies weight gain and Denies weight loss ENT Denies dizziness Card Denies chest pain, Denies leg edema, Denies lightheadedness, Denies palpitations, Denies dyspnea, Denies dyspnea on exertion, Denies orthopnea and Denies other (loss of consciousness) Resp Denies cough, Denies dyspnea and Denies dyspnea on exertion GI Denies hematochezia and Denies change in stool character Musc Denies abnormal gait, Denies muscle weakness, Denies numbness, Denies radiating pain into limb and Denies tingling Neuro Denies abnormal gait, Denies dizziness, Denies frequent falls, Denies numbness, Denies tingling and Denies weakness Endo Denies fatigue and Denies palpitations Physical Exam Vital Signs: Last Vital Signs Pulse 70 08/30/23 14:25 BP 120/70 08/30/23 14:25 BMI result Body Mass Index 25.0 Last Vital Signs Temp 98.0 F 02/01/21 09:14 Pulse 69 02/01/21 09:14 Resp 20 02/01/21 09:14 BP 119/77 02/01/21 09:14 Pulse Ox 97 02/01/21 09:14 Body Mass Index 27.2 Const General: cooperative, comfortable, no acute distress, alert and awake Nutritional Appearance: overweight Orientation/consciousness: patient oriented x3 Limitations: no limitations HEENT Head: Yes normocephalic and Yes atraumatic Neck Neck: Yes trachea midline, Yes supple and Yes no JVD Chest Chest palpation & inspection: normal inspection of the chest Resp Effort & Inspection: normal respiratory effort Auscultation: clear to auscultation bilaterally Cardio Jugular venous distension: no JVD Palpation: normal PMI Rate: regular rate Rhythm: regular rhythm Heart sounds: S1 normal heart sound present, S2 normal heart sound present, no click, no gallops and no murmurs GI Auscultation: normal bowel sounds Skin General skin exam: no rashes or lesions noted Neuro General: patient oriented x3 and no focal motor deficits Extrem General: Yes no clubbing, cyanosis or edema Psych Appearance: grossly normal Office Procedures EKG Details: EKG shows normal sinus rhythm with normal EKG [id number], Complete Assessment & Plan Assessment & Plan (1) Atypical chest pain: Code(s): R07.89 - Other chest pain Category: Medical Plan: Patient with atypical chest pain with no clear exertional component but pain she says similar to ACS pain. Will therefore suggest exercise myocardial perfusion imaging to evaluate for progressive coronary disease and/or stent patency. This was discussed with her. This will be scheduled in near future. Will also obtain echocardiogram to evaluate LV systolic and diastolic function. (2) Palpitations: Code(s): R00.2 - Palpitations Category: Medical Plan: Symptoms of palpitation which are driven by stress. Question SVT question extra systoles. Symptoms of present almost on every day basis. Suggest a Holter monitor to further assess for symptoms. Further treatment based on the findings. Stress mitigation strategies were discussed avoidance of stimulants was discussed. If she has rare symptoms or no significant arrhythmias no further pharmacotherapy will be recommended. (3) CAD (coronary artery disease): Code(s): I25.10 - Atherosclerotic heart disease of [place] coronary artery without angina pectoris Category: Medical Plan: CAD with drug-eluting stent to LAD for 100% occlusion for acute coronary syndrome. Symptoms are somewhat atypical. Continue aggressive medical therapy including lifelong aspirin therapy. Continue high-intensity statin therapy with ezetimibe therapy with target goal LDL closer to 60 mg/dL. This is well optimized. Continue amlodipine therapy for blood pressure control. Encouraged to continue to participate in stress mitigation strategies. Regular physical activity is recommended. Will follow up in the clinic in 1 year's time, sooner p.r.n.. Thank you for allowing me to partake in her care Orders: Orders CA echo transthoracic complete Today R07.89 - Other chest pain CA stress test Today R07.89 - Other chest pain NM cardiolite stress test 1 Week R07.89 - Other chest pain ECG 7 day holter monitor Today R00.2 - Palpitations Coding Level of Care Code Est Pt Level 4 (71467) Diagnoses Atypical chest pain R07.89 Palpitations R00.2 CAD (coronary artery disease) I25.10 CPT Codes EKG - CPT: 52338-[id number], Complete ([id number])
[2023-08-30 14:25] VITALS: BP 120/70; PULSE 70; BMI 25.0
== END 2023-08-30 14:54 | disposition home or self-care (01) ==
PROVIDERS: Visit Provider Internal Medicine Cardiovascular Disease
DX: R07.89 Other chest pain (principal); R00.2 Palpitations; I25.10 Atherosclerotic heart disease of native coronary artery without angina pectoris
CPT/HCPCS: 93010; 99214

== ENCOUNTER → 2023-08-30 14:15 | Outpatient (BNVA) | payer OTHER, SELFPAY | PROVIDERS: Visit Provider Internal Medicine Cardiovascular Disease | DX: R00.2 Palpitations (principal); R07.89 Other chest pain; I25.10 Atherosclerotic heart disease of native coronary artery without angina pectoris; Z79.82 Long term (current) use of aspirin; Z79.899 Other long term (current) drug therapy | CPT/HCPCS: 93005 ==

== ENCOUNTER 2023-09-12 08:08 | Outpatient (AMB) | payer OTHER, SELFPAY ==
[2023-09-12 08:23] VITALS: BP 138/76; PULSE 77; O2SAT 98; BMI 25.4
--- NOTE | 2023-09-12 08:23 | A.OFFPC_ITS ---
Vital Signs 09/12/23 08:23 Height 5 ft Weight 130 lb BMI 25.4 BP 138/76 Blood Pressure Location Lt brachial Position Sitting Pulse 77 Pulse Source Pulse Oximeter Pulse Oximetry (%) 98 Oxygen Delivery Method Room Air Intake Visit Reasons: 6 Month F/U Allergies No Known Allergies Allergy (Verified 09/12/23 08:24) Medication List - Last Reconciled 09/12/23 by Gian Clayton MD amlodipine 2.5 mg See Protocol PO DAILY 90 days aspirin 81 mg PO DAILY blood pressure monitor (Blood Pressure Kit) As directed ezetimibe (Zetia) 10 mg PO DAILY rosuvastatin 40 mg PO DAILY 90 days triamcinolone acetonide 0.5% 1 appl topical BID Tobacco use date assessed: 06/15/23 Dental Screening Dental Screen Date: 09/12/23 Did you have a dental visit in the last 12 months?: Yes Did you have a dental problem in the last 6 months where you did not have access to dental care?: No Was dental information given to patient?: Patient has dentist HPI 6 Month F/U HPI Details 63-year-old female with coronary artery disease hypertension hypercholesterolemia GERD and impaired glucose tolerance last seen in May 2023. Review of the notes just recently seen Cardiology for follow-up complaining of palpitations patient was advised to have a myocardial perfusion imaging, Holter monitor and echocardiogram. Patient is scheduled September 29 in October 05 to get this tests. Otherwise does have the palpitations no chest heaviness. Otherwise no nausea no vomiting no bowel bladder symptoms. PFSH Medical History CAD (coronary artery disease) Acute coronary syndrome Overweight (BMI 25.0-29.9) Cervical dysplasia History of uterine fibroid Vitamin D deficiency Hypercholesterolemia Tubular adenoma of colon Alcohol abuse Surgical History Stented coronary artery Hx of colonoscopy History of tubal ligation Family History Father Hypertension Mother Hypertension Stroke CVD (cardiovascular disease) Sister Stroke Brother Substance abuse Bipolar 1 disorder Mental health disorder Social History Household Members: Family Housing: House Do you presently have visiting nurse or other home services: No Alcohol intake: current Alcohol intake frequency: a few times a month Alcohol type: beer Comment: oncea week4 beers Patient Tobacco Use Status: Current someday Tobacco user Tobacco use type: Cigarette Cigarettes Per Day: 3 Years Smoked: 25 still smoking e-Cigarette/Vaping Use: Never Used Second Hand Smoke Exposure: No service: No Current occupational status: employed 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 1. Little interest or pleasure in doing things: several days 2. Feeling down, depressed, or hopeless: several days 3. Trouble falling or staying asleep, or sleeping too much: not at all 4. Feeling tired or having little energy: not at all 5. Poor appetite or overeating: not at all 6. Feeling bad about yourself - or that you are a failure or have let yourself or your family down: not at all 7. Trouble concentrating on things, such as reading the newspaper or watching television: not at all 8. Moving or speaking so slowly that other people could have noticed. Or the opposite - being so fidgety or restless that you have been moving around a lot more than usual: not at all 9. Thoughts that you would be better off or of hurting yourself in some way: not at all Total score: 2 Depression Screening Interpretation: Positive Depression Screening Done: Yes Source: Developed by Drs. Quinten Antonio, Layc Arrieta, Sid Morgan and colleagues, with an educational ember from [employer]. Thrive Questionnaire Date Thrive assessed: 09/12/23 I am a: Patient What is your living situation today?: I have a steady place to live Within the past 12 months, did the food you bought not last and you didn't have the money to get more?: Never true Within the past 12 months, did you worry whether your food would run out before you got money to buy more?: Never true Do you have trouble paying for medicines?: No Do you have trouble getting transportation to medical appointments?: No Do you have trouble paying your heating and electricity bill?: No Do you have trouble taking care of your child, family member or friend?: No Do you have trouble with day-to-day activities such as bathing, preparing meals, shopping, managing finances, etc.?: No Are you currently unemployed and looking for a job?: No Are you interested in more education?: No Currently or been in a relationship where the following occur: no concerns reported THRIVE Score: 0 AUDIT C Alcohol Use Questionnaire (AUDIT-C) 1. How often do you have a drink containing alcohol?: Monthly or less 2. How many drinks containing alcohol do you have on a typical day when you are drinking?: 1 or 2 3. How often do you have six or more drinks on one occasion?: Never Total Score: 1 CIERRA-7 AMB Questionnaire CIERRA-7 Date CIERRA - 7 assessed: 09/12/23 Feeling nervous, anxious, or on edge: 0 = Not at all Not being able to stop or control worryin = Not at all Worrying too much about different things: 0 = Not at all Trouble relaxin = Not at all Being so restless that it is hard to sit still: 0 = Not at all Becoming easily annoyed or irritable: 0 = Not at all Feeling afraid as if something awful might happen: 0 = Not at all Total CIERRA-7 score (0-4 normal; 5-9 mild; 10-14 moderate; 15-21 severe): 0 Source: Developed by Drs. Quinten Antonio, Lacy Arrieta, Sid Morgan and colleagues, with an educational ember from [employer]. Physical exam (Primary Care) Vital Signs: Last Vital Signs Pulse 77 09/12/23 08:23 BP 138/76 09/12/23 08:23 Pulse Ox 98 09/12/23 08:23 Oxygen Delivery Method Room Air 09/12/23 08:23 BMI result Body Mass Index 25.4 Tobacco/Smoking Status: Tobacco use Status Tobacco use date assessed 06/15/23 09/12/23 08:28 Patient Tobacco Use Status Current someday Tobacco 09/12/23 08:28 Tobacco use type Cigarette 09/12/23 08:28 e-Cigarette/Vaping Use Never Used 09/12/23 08:28 PHQ-9: PHQ-9 Score PHQ-9: Total score 2 09/12/23 08:28 Depression Screening Interpretation: Positive Thrive Assessment: Date of Thrive Assessment Date Thrive assessed 09/12/23 09/12/23 08:28 Currently or been in a relationship where the following occur: no concerns reported Const General: alert; No acute distress Eyes Conjunctivae: conjunctivae normal Resp Auscultation: clear to auscultation bilaterally Cardio Rate: regular rate Rhythm: regular rhythm GI Inspection: Yes normal to inspection Skin Other: Noted 2 cm round papular rash noted on the left lateral distal leg. Extrem General: Yes normal to inspection and No edema Assessment and Plan Assessment & Plan (1) CAD (coronary artery disease): Code(s): I25.10 - Atherosclerotic heart disease of [place] coronary artery without angina pectoris Plan: Control the cholesterol, weight, blood pressure continue with aspirin. Patient has been follow-up with cardiology and with atypical chest pain workup requested with myocardial perfusion scanning echocardiogram and Holter monitor. (2) Hypercholesterolemia: Code(s): E78.00 - Pure hypercholesterolemia, unspecified Plan: Avoid fried foods, chicken skin, eggs, butter margarine, pastries and meat. Be it pork or beef they have a lot of cholesterol LDL goal of 60 and below on rosuvastatin 40 mg once a day and Zetia 10 mg once a day (3) Hypertension: Code(s): I10 - Essential (primary) hypertension Plan: Continue with blood pressure medication. Decrease salt intake and exercise on amlodipine 2.5 mg once a day (4) GERD (gastroesophageal reflux disease): Code(s): K21.9 - Gastro-esophageal reflux disease without esophagitis Plan: Avoid the foods that causes that usually spicy foods, tomato products, juices, coffee, soda and foods that your sensitive to. After eating do not lie down, allow 3-4 hours before in lie down. And keep the head of bed above 30 degrees to avoid the acid from going up. (5) Generalized anxiety disorder: Code(s): F41.1 - Generalized anxiety disorder Plan: Stable (6) Impaired glucose tolerance: Code(s): R73.02 - Impaired glucose tolerance (oral) Plan: Decrease the amount of carbohydrate intake, pasta, bread, rice and potatoes are all sugar and that is aside from all the sweet stuff, remember that fruits are good but they are Sweet also. (7) Atypical chest pain: Code(s): R07.89 - Other chest pain Plan: By patient has been seen by Cardiology and workup pending. (8) Eczema: Comment: L leg Code(s): L30.9 - Dermatitis, unspecified Plan: Steroid cream prescribed. Noted left leg 2 cm papular rash noted Medications: New triamcinolone acetonide 0.5% 1 appl topical BID 30 grams 0RF L30.9 - Dermatitis, unspecified Refilled ezetimibe (Zetia) 10 mg PO DAILY 90 tabs 3RF Coding Level of Care Code Est Pt Level 4 (99388) Diagnoses CAD (coronary artery disease) I25.10 Hypercholesterolemia E78.00 Hypertension I10 GERD (gastroesophageal reflux disease) K21.9 Generalized anxiety disorder F41.1 Impaired glucose tolerance R73.02 Atypical chest pain R07.89 Eczema L30.9
== END 2023-09-12 09:00 | disposition home or self-care (01) ==
PROVIDERS: PCP Internal Medicine; Visit Provider Internal Medicine
DX: I25.10 Atherosclerotic heart disease of native coronary artery without angina pectoris (principal); E78.00 Pure hypercholesterolemia, unspecified; I10 Essential (primary) hypertension; K21.9 Gastro-esophageal reflux disease without esophagitis; F41.1 Generalized anxiety disorder; R73.02 Impaired glucose tolerance (oral); R07.89 Other chest pain; L30.9 Dermatitis, unspecified
CPT/HCPCS: 99214

== ENCOUNTER → 2023-09-26 07:56 | Outpatient (REF) | payer OTHER, SELFPAY ==
--- NOTE | 2023-09-26 08:02 | HM_ITS ---
* Total monitoring time 7 days. * Underlying rhythm is sinus with an average rate of 68/Min. Range 49 to 103/Min. * Rare supraventricular ectopy. Very brief runs. * Rare ventricular ectopy. * No significant pauses or AV blocks. * Patient markers noted in association with sinus rhythm. * Palpitations, stress, anxiety in patient diary correlate with sinus rhythm. MTDD
--- NOTE | 2023-09-26 08:02 | CA_ITS ---
Transthoracic Echocardiogram Patient (Last, First, Middle): Bettie Truong M Gender: Female Date of : 1960 Age: 63 Procedure Date: 09/26/2023 Procedure Type: Transthoracic Echocardiogram Location: OP Height: 149.86 cm Weight: 58.97 kg BSA: 1.54 m2 Heart Rate: bpm BP: 130 / 68 mmHg Flagsetter: Referring MD: Golden Lloyd MD [employer] Cutter Hand: Golden Lloyd MD Symptoms: R07.89 - Other chest pain Study Quality: Adequate ECG Rhythm: Sinus Conclusions: - 1. Normal LV ejection fraction 60 65% 2. Mildly dilated left atrium 3. Normal cardiac valvular Doppler 4. Normal RV systolic pressure 5. No gross pericardial effusion Findings Left Ventricle Normal left ventricular size, thickness, and systolic function. The visually estimated ejection fraction is between 60-65%. Spectral Doppler is indicative of a normal filling pattern. Right Ventricle Normal right ventricular cavity size and systolic function. Atria The left atrium is mildly dilated. Interatrial shunt cannot be excluded. The right atrium is normal in size. Aortic Valve The aortic valve structure and function is likely normal. There is no aortic valve stenosis. There is no aortic valve regurgitation. Mitral Valve Normal mitral valve structure and function. There is trace mitral valve regurgitation. There is no mitral valve stenosis. Pulmonic Valve The pulmonic valve was not well visualized. Tricuspid Valve Likely normal tricuspid valve structure and function. There is trace tricuspid valve regurgitation. The right ventricular systolic pressure is normal. The right ventricular systolic pressure is 19 mmHg. Normal right atrial pressure. There is no evidence of pulmonary hypertension. Great Vessels All visible segments of the aorta are normal in size. The pulmonary artery was not well visualized. There is no dilatation of the ascending aorta measuring 2.90 cm. Venous The inferior vena cava is normal in size and collapses greater than 50% with inspiration. Pericardium/Pleural There is no evidence of pericardial effusion. Prior Study Comparison No significant change compared to prior study dated: 04/13/2021. Measurements 2D Linear Measurements IVSd: 1.07 0.6-0.9/0.6-1.0 cm LVIDd: 4.05 3.9-5.3/4.2-5.9 cm LVIDd Index: 2.63 2.4-3.2/2.2-3.1 cm/m2 LVIDs: 2.45 2.0-3.6 cm LVPWd: 1.01 0.7-1.1 cm Ao Root: 3.10 2.1-3.5 cm LA Diam: 3.10 2.7-3.8/3.0-4.0 cm LAIDs Index: 2.01 1.5-2.3 cm/m2 LV Mass: 170.47 67-162/88-224 g LV Mass Index: 110.70 43-95/49-115 g/m2 LVOT Diam: 2.20 3.0+(-)1.3 cm 2D Systolic Function EF Teich: 65.00 >55% EF 4C: 59.70 >55% EF 2C: 62.20 >55% EF BiP: 62.00 >55% Mitral Valve MV Pk E: 0.88 MV PK A: 0.74 MV Decel Time: 144.00 E/A: 1.20 E'Lateral: 10.70 E'Medial: 5.44 E/E' Med: 16.10 E/E' Lat: 8.20 PHT: 42.00 MVA PHT: 5.24 Decel Merrick: 6.11 Aortic Valve AoV Pk Josiah: 1.25 AoV Mn Josiah: 0.85 AoV VTI: 0.35 AoV Pk Grad: 6.00 Aov Mn Grad: 3.00 NAS Cont.VTI: 2.64 NAS: 2.90 LVOT LVOT Pk Josiah: 0.86 LVOT Mn Josiah: 0.56 LVOT VTI: 0.24 LVOT Pk Grad: 3.00 LVOT Mn Grad: 2.00 LVOT Diam: 2.20 LVOT Area: 3.80 Diastolic Function MV Pk E: 0.88 MV Pk A: 0.74 E/A: 1.20 E'Medial: 5.44 E/E' Med: 16.10 E' Laterial: 10.70 E/E' Lat: 8.20 Right Ventricle TAPSE (mm): 26.00 TVS' Josiah: 11.00 Tricuspid Valve TR Pk Josiah: 1.96 TR Pk Grad: 15.00 RA Press: 3.00 RVSP: 19.00 Great Vessels Aorta Ao Root-2D: 3.10 2.0-3.7 cm Ao Asc: 2.90 2.1-3.4 cm Pulmonary Valve PV Pk Josiah: 0.94 Peak PV Grad: 4.00 Updated in Other Vendor System with Status of Final Golden Lloyd MD electronically signed on 09/27/2023 12:45:07 PM with status of Final
== END ==
LOC: HO.CARD 07:56
PROVIDERS: PCP Internal Medicine; Visit Provider Internal Medicine Cardiovascular Disease
DX: R07.89 Other chest pain (principal); R00.2 Palpitations
CPT/HCPCS: 93242; 93306

== ENCOUNTER → 2023-09-26 08:02 | Outpatient (BNV) | payer OTHER, SELFPAY | PROVIDERS: PCP Internal Medicine; Visit Provider Internal Medicine Cardiovascular Disease | DX: I47.10 Supraventricular tachycardia, unspecified (principal) | CPT/HCPCS: 93244; 93306 ==

== ENCOUNTER → 2023-10-18 09:24 | Outpatient (REF) | payer OTHER, SELFPAY ==
--- NOTE | ~2023-10-18 | NM_ITS ---
Exercise Myocardial perfusion study Indication: Chest pain to evaluate for myocardial ischemia Technique: The patient was brought in for an exercise perfusion study on 10/18/2023. Patient performed exercise as per Hector protocol and was injected 25 mCi of sestamibi was given intravenously one target HR was achieved. Images were obtained using the SPECT gamma camera interlaced with the gating device. Images were obtained in supine position. Resting perfusion study was performed on 10/29/2023. Patient was administered 25 mCi of sestamibi intravenously at rest. Images were then obtained in supine position. Images obtained with and without CT attenuation. Total DLP 76 mGy-cm. Images were processed with the software and compared side to side in short axis, horizontal long axis and vertical long axis views. Findings: The stress perfusion study showed both attenuated as well as non attenuated corrected images show normal uptake of all segments of LV myocardium. The gated study shows normal LV systolic function with calculated LVEF of 70%. LV cavity is normal in size. The gated study shows normal systolic wall thickening and contraction of all segments. There is no transient ischemic dilation. Resting study shows non attenuated images show normal uptake of radiotracer in all segments of LV myocardium. Gating at rest reveals normal systolic wall motion with ejection fraction at greater than 60%. The findings are consistent with normal myocardial perfusion. NM/NM cardiolite stress test Impression: 1. Normal myocardial perfusion 2. Gated LVEF is 70% 3. Transient ischemic dilatation not present Stress EKG is positive for ischemia
--- NOTE | 2023-10-18 09:26 | CA_ITS ---
Acquisition Time: 2023-10-18 09:36:41 Total Exercise Time: 00:07:51 Test Indications: Chest Pain Medications: AMLODIPINE ASA ZETIA ROSUVASTATIN Protocol: TINA Max HR: 139 BPM 87% of Pred: 158 BPM Max BP: 188/068 mmHG Max Work Load: 9.8 METS Exercise stress test exercise 7 min 51 sec of Tina protocol achieving 87% MPHR, with mild SOB, no chest discomfort, with isolated PVC and PACs, with normotensive response to exercise, with downsloping leads 2, 3, aVF, V3-V5 in recovery. Nuclear images pending. Test reviewed with Dr. Lloyd Referred By: Golden Lloyd Overread By: Nancy Pappas
== END ==
LOC: HO.CARD 09:24
PROVIDERS: PCP Internal Medicine; Visit Provider Internal Medicine Cardiovascular Disease
DX: R07.89 Other chest pain (principal)
CPT/HCPCS: 78452; 93017; A9500

== ENCOUNTER → 2023-10-18 09:26 | Outpatient (BNV) | payer OTHER, SELFPAY | PROVIDERS: PCP Internal Medicine; Visit Provider Nurse Practitioner | DX: R07.9 Chest pain, unspecified (principal) | CPT/HCPCS: 78452; 93016; 93018 ==

== ENCOUNTER 2023-11-13 12:21 | Outpatient (REF) | payer OTHER, SELFPAY ==
[2023-11-13 12:56] LABS: MANUAL DIFF FLAG NO
[2023-11-13 13:30] LABS: Basophils Absolute Auto 0.1 X10*3/uL (0.0-0.2); Basophils Percent Auto 0.5 % (0-2); Eosinophils Absolute Auto 0.3 X10*3/uL (0.0-0.4); Hematocrit 38.8 % (37.0-47.0); Hemoglobin 13.5 g/dl (12.0-16.0); Imm Gran Abs Auto 0.02 X10*3/uL (0.00-0.03); Imm Gran Pct Auto 0.2 % (0.0-0.4); Lymphocytes Absolute Auto 3.3 X10*3/uL (1.2-4.9); Lymphocytes Percent Auto 35.5 % (20-40); Mean Corpuscular HGB Conc 34.8 g/dl (31.0-35.0); Mean Corpuscular Volume 94.9 fL (80.0-98.0); Mean Platelet Volume 10.1 fL (9.4-12.3); Monocytes Absolute Auto 0.7 X10*3/uL (0.1-1.2); Monocytes Percent Auto 7.7 % (2-11); Neutrophils Absolute Auto 4.9 x10*3/uL (2.0-8.3); Neutrophils Percent Auto 53.1 % (45-73); Platelet Count 239 X10*3/uL (160-400); Red Blood Count 4.09 X10*6/uL (4.20-5.50); Red Cell Distribution Width 12.4 % (11.0-16.0); White Blood Count 9.2 X10*3/uL (4.8-10.8)
[2023-11-13 13:54] LABS: Estimated Average Glucose 108 mg/dL; Hemoglobin A1c % 5.4 % (<6.0)
[2023-11-13 14:06] LABS: Alanine Aminotransferase 33 U/L (0-31); Albumin Level 4.3 g/dL (3.5-5.0); Alkaline Phosphatase 75 U/L (39-117); Anion Gap 16 (12-20); Aspartate Amino Transferase 34 U/L (5-31); Bilirubin Total 0.8 mg/dL (0.0-1.0); Blood Urea Nitrogen 8 mg/dL (9-16); Calcium 9.8 mg/dL (8.4-10.2); Carbon Dioxide 24 mmol/L (22-29); Chloride 108 mmol/L (96-108); Cholesterol 154 mg/dL (<200); Estimated Glomerular Filt Rate > 60; Glucose Random 107 mg/dL (60-115); HDL Cholesterol 80 mg/dL (>40); LDL Cholesterol Calculated 51 mg/dL (<100); Potassium 3.7 mmol/L (3.3-5.1); Sodium 144 mmol/L (135-145); Total Protein 7.4 g/dL (6.5-8.0); Triglycerides 119 mg/dL (<150)
[2023-11-13 14:15] LABS: Free T4 (Free Thyroxine) 0.88 ng/dL (0.71-1.85); Thyroid Stimulating Hormone 2.58 uIU/mL (0.32-4.0); Vitamin D 25-OH Total 51.7 ng/mL (>30)
[2023-11-13 14:27] LABS: Folate 12.4 ng/mL (> or = 4.0); Vitamin B12 550 pg/mL (200-900)
[2023-11-14 08:43] LABS: HBc Num1 0.09 S/CO (0.00-0.79); HBsAGNum1 0.24 S/CO (0.00-0.99); Hepatitis B Core Antibody Nonreactive (Nonreactive); Hepatitis B Surface Antigen Negative (Negative); ~HepC Num1 0.04 S/CO (0.00-0.79); ~Hepatitis B Surface Antibody NONREACTIVE (Nonreactive); ~Hepatitis C Antibody Nonreactive (Nonreactive)
[2023-11-14 18:23] LABS: Rubella IgG Antibody 3.89 Index; Rubeola IgG (Measles) >300.00 AU/mL; Varicella IgG Antibody >4000.00 index
[2023-11-16 06:03] LABS: TS Negative Control Passed; TS Panel A 0; TS Panel B 0; TS Positive Control Passed; TSpotTB Negative (Negative)
== END 2023-11-13 12:22 | disposition home or self-care (01) ==
LOC: HO.LAB 12:21
PROVIDERS: PCP Internal Medicine; Visit Provider Internal Medicine
DX: Z02.0 Encounter for examination for admission to educational institution (principal); R73.02 Impaired glucose tolerance (oral); E78.00 Pure hypercholesterolemia, unspecified; R79.89 Other specified abnormal findings of blood chemistry
CPT/HCPCS: 36415; 80053; 80061; 82306; 82607; 82746; 83036; 84439; 84443; 85025; 86481; 86704; 86706; 86735; 86762; 86765; 86787; 86803; 87340

== ENCOUNTER 2024-03-24 08:54 | Outpatient (AMB) | payer OTHER, SELFPAY ==
[2024-03-24 09:02] VITALS: BP 136/82; PULSE 69; O2SAT 99; BMI 25.4
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
== END 2024-03-24 09:35 | disposition home or self-care (01) ==
PROVIDERS: PCP Internal Medicine; Visit Provider Internal Medicine
DX: Z00.00 Encounter for general adult medical examination without abnormal findings (principal); I25.10 Atherosclerotic heart disease of native coronary artery without angina pectoris; I10 Essential (primary) hypertension; K21.9 Gastro-esophageal reflux disease without esophagitis; E78.00 Pure hypercholesterolemia, unspecified; R73.02 Impaired glucose tolerance (oral); Z72.0 Tobacco use; F41.1 Generalized anxiety disorder; Z23 Encounter for immunization

== ENCOUNTER → 2024-03-24 08:54 | Outpatient (BNVA) | payer OTHER, SELFPAY | PROVIDERS: PCP Internal Medicine; Visit Provider Internal Medicine | DX: Z00.00 Encounter for general adult medical examination without abnormal findings (principal); Z23 Encounter for immunization; I25.10 Atherosclerotic heart disease of native coronary artery without angina pectoris; I10 Essential (primary) hypertension; K21.9 Gastro-esophageal reflux disease without esophagitis; E78.00 Pure hypercholesterolemia, unspecified; R73.02 Impaired glucose tolerance (oral); F41.1 Generalized anxiety disorder; Z72.0 Tobacco use; Z79.82 Long term (current) use of aspirin; Z79.899 Other long term (current) drug therapy | CPT/HCPCS: 90471; 90656; 96127 ==

== ENCOUNTER 2024-05-19 07:26 | Outpatient (REF) | payer OTHER, SELFPAY | END 2024-05-19 07:27 | disposition home or self-care (01) | LOC: HO.MAMMO 07:26 | PROVIDERS: PCP Internal Medicine; Visit Provider Internal Medicine | DX: Z12.31 Encounter for screening mammogram for malignant neoplasm of breast (principal) | CPT/HCPCS: 77063; 77067 ==

== ENCOUNTER → 2024-05-19 07:45 | Outpatient (BNV) | payer OTHER, SELFPAY | PROVIDERS: PCP Internal Medicine; Visit Provider Internal Medicine | DX: Z12.31 Encounter for screening mammogram for malignant neoplasm of breast (principal) | CPT/HCPCS: 77063; 77067 ==

== ENCOUNTER 2024-06-30 10:38 | Outpatient (REF) | payer OTHER, SELFPAY ==
[2024-06-30 11:04] VITALS: BP 144/79; PULSE 62; RESP 16; TEMP 36.2; O2SAT 98; BMI 25.8
--- OUTSIDE RECORDS SUMMARY | 2024-06-30 11:59 | XMS_ITS | Clinical Summary ---
Author Organization [employer] Address [address] [place] [address] Care Team Providers Care Cable Supervisor Name Role Phone Unavailable Primary Care Provider Unavailabl e Allergies No known active allergies Medications amLODIPine (Norvasc) 2.5 MG tablet Take 2.5 mg by mouth Once per day. Active ezetimibe (Zetia) 10 MG tablet Take 10 mg by mouth Once per day. 12/06/2023 Active rosuvastatin (Crestor) 40 MG tablet Take 40 mg by mouth Once per day. 12/11/2023 Active Social History Tobacco Use Types Packs/Day Years Used Date Smoking Tobacco: Every Day Cigarettes Smokeless Tobacco: Never Tobacco Cessation:Ready to Q uit: Not Asked; Counseling Given: Not Answered Alcohol Use Standard Drinks/Week Comments Yes 0 (1 standard drink = 0.6 oz pur e alcohol) socially Comments Unknown Sex and Gender Information Value Date Recorded Sex Assigned at Female 12/21/2023 11:19 AM EDT Legal Sex Female 12:58 PM EST Gender Identity Female 12/21/2023 11:19 AM EDT Sexual Orientation Straight 12/21/2023 11 :19 AM EDT Last Filed Vital Signs Vital Sign Reading Time Taken Comments Blood Pressure 124/76 03/27/2024 2:57 PM EST Pulse - - Temperature - - Respiratory Rate - - Oxygen Saturation - - Inhaled Oxygen Concentration - - Weight - - Height - - Body Mass Index - - Plan of Treatment Upcoming Encounters Date Type Department Care Team (Late st Contact Info) Description 09/30/2024 3:00 PM EDT Office Visit [facility] [address] [place] [address] Carlee Washburn Health Maintenance Due Date Last Done Comments CT Colonography 1961 Colonoscopy 1961 Colorectal Cancer Screening 1961 Depression Screening 1961 FIT DNA/Cologuard 1961 FIT 1961 FOBT 1961 HIV Screening 1961 Lipid Panel 1961 SDOH Screening 1961 Sigmoidoscopy 1961 Alcohol/Substance Use Screening 1973 Hepatitis C Screening 07/09/1979 Pap Smear 1982 Cervical Cancer Screening 07/09/1991 HPV/Cotest 07/09/1991 Mammogram 2001 Pneumococcal Vaccine: 50+ Years (2 of 2 - PCV) 09/13/2022 09/13/2021 COVID-19 Vaccine ( - 2023- season) 2023 03/29/2022, 09/03/2020, 08/06/2020 Dental Oral Exam 07/11/2024 01/11/2024 Dental Prophylaxis 09/26/2024 03/27/2024 Dental X-Ray: Bitewings 01/11/2025 01/11/2024 Tobacco Screening 03/27/2025 03/27/2024 DTaP/Tdap/Td Vaccines (2 - Td or Tdap) 02/01/2026 02/02/2016 Dental X-Ray: Full Mouth 01/11/2027 01/11/2024 RSV Patients and Patients Aged 60 years or older (1 - 1-dose 75+ series) 2036 Zoster Vaccines Completed 05/19/2023, 01/27/2023 Influenza Vaccine Completed 03/24/2024, , 03/06/2022, Additional history exists HIB Vaccines Aged Out No longer eligi ble based on patient's age to complete this topic HPV Vaccines Aged Out No longer eligi ble based on patient's age to complete this topic Hepatitis A Vaccines Aged Out No long er eligible based on patient's age to complete this topic Hepatitis B Vaccines Aged Out No long er eligible based on patient's age to complete this topic IPV Vaccines Aged Out No longer eligi ble based on patient's age to complete this topic Meningococcal Vaccine Aged Out No guillermina ramonita eligible based on patient's age to complete this topic RSV under 20 months Aged Out No longe r eligible based on patient's age to complete this topic Rotavirus Vaccines Aged Out No longer eligible based on patient's age to complete this topic Procedures Procedure Name Priority Date/Time Associated Diagnosis Comments PROPHYLAXIS - ADULT Routine 03/27/2024 3 :00 PM EST Dental plaque Dental calculus INTRAORAL - COMPLETE SERIES OF RADIOGRAPHIC IMAGES Routine 01/11/2024 9:00 AM EDT COMPREHENSIVE ORAL EVALUATION - NEW OR ESTABLISHED PATIENT Routine 01/11/2024 9:00 AM EDT from Last 3 Months or Most Recently Relevant to Health Maintenance
== END 2024-06-30 10:39 | disposition home or self-care (01) ==
LOC: HO.MS 10:38
PROVIDERS: PCP Internal Medicine; Visit Provider Ophthalmology
PROC: (CPT 67810; principal; 2024-06-30 15:00)
DX: H02.825 Cysts of left lower eyelid (principal)
CPT/HCPCS: 67810; 88304; 88305; J2004

== ENCOUNTER 2024-08-26 14:43 | Outpatient (AMB) | payer OTHER, SELFPAY ==
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
[2024-08-26 14:54] VITALS: BP 120/78; PULSE 58; BMI 29.7
--- OUTSIDE RECORDS SUMMARY | 2024-08-26 16:01 | XMS_ITS | Clinical Summary ---
Author Organization [employer] Address [address] [place] [address] Care Team Providers Care Manager Mobile Name Role Phone Unavailable Primary Care Provider [...] Description 09/30/2024 3:00 PM EDT Office Visit [facility] [address] [place] [address] Carlee Washburn Health Maintenance Due Date Last [...]
== END 2024-08-26 15:18 | disposition home or self-care (01) ==
LOC: HO.HCS 14:48
PROVIDERS: PCP Internal Medicine; Visit Provider Internal Medicine Cardiovascular Disease
DX: I25.10 Atherosclerotic heart disease of native coronary artery without angina pectoris (principal); I10 Essential (primary) hypertension
CPT/HCPCS: 93010; 99214

== ENCOUNTER → 2024-08-26 14:43 | Outpatient (BNVA) | payer OTHER, SELFPAY | PROVIDERS: PCP Internal Medicine; Visit Provider Internal Medicine Cardiovascular Disease | DX: I25.10 Atherosclerotic heart disease of native coronary artery without angina pectoris (principal); I10 Essential (primary) hypertension; R00.2 Palpitations; F17.210 Nicotine dependence, cigarettes, uncomplicated | CPT/HCPCS: 93005 ==

== ENCOUNTER 2025-03-30 08:35 | Outpatient (AMB) | payer OTHER, SELFPAY ==
[2025-03-30 08:40] VITALS: BP 144/82; PULSE 78; O2SAT 98; BMI 25.0
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
== END 2025-03-30 10:19 | disposition home or self-care (01) ==
PROVIDERS: PCP Internal Medicine; Visit Provider Student in an Organized Health Care Education/Training Program
DX: Z00.00 Encounter for general adult medical examination without abnormal findings (principal); I10 Essential (primary) hypertension; I25.10 Atherosclerotic heart disease of native coronary artery without angina pectoris; K21.9 Gastro-esophageal reflux disease without esophagitis; F41.1 Generalized anxiety disorder; Z12.11 Encounter for screening for malignant neoplasm of colon; R74.01 Elevation of levels of liver transaminase levels; Z23 Encounter for immunization

== ENCOUNTER → 2025-03-30 08:35 | Outpatient (BNVA) | payer OTHER, SELFPAY | PROVIDERS: PCP Internal Medicine; Visit Provider Internal Medicine | DX: Z00.00 Encounter for general adult medical examination without abnormal findings (principal); I10 Essential (primary) hypertension; E78.5 Hyperlipidemia, unspecified; K21.9 Gastro-esophageal reflux disease without esophagitis; F41.1 Generalized anxiety disorder; I25.10 Atherosclerotic heart disease of native coronary artery without angina pectoris; R74.01 Elevation of levels of liver transaminase levels; Z23 Encounter for immunization; Z79.899 Other long term (current) drug therapy | CPT/HCPCS: 90471; 90656; 96127 ==